=== PATIENT | female | born 1940 | race Caucasian/White ===

== ENCOUNTER 2016-03-28 11:59 | Inpatient (IN) | payer MEDICARE, OTHER ==
[2016-03-28] MEDS ORDERED: ASPIRIN 81 MG TABLET, CHEWABLE PO ONE (12:06)
--- NOTE | 2016-03-28 12:10 | ER Document Report ---
ED Medical Screen (RME) - General Chief Complaint: Chest Pain > 30 Stated Complaint: CHEST PAIN,HEADACHE Time seen by provider: 12:08 Mode of Arrival: Ambulatory Notes: 75-year-old female presents to ED for chest pain going through to her back with palpitations. Started yesterday. States the pain is a little better but still achy left side of her chest through to her back. She states she does have chronic back pain but this was different with her heart feeling like it's racing. She does have a cardiac history with 4 stents I have greeted and performed a rapid initial assessment of this patient. A comprehensive ED assessment and evaluation of the patient, analysis of test results and completion of medical decision making process will be conducted by an additional ED provider. TRAVEL OUTSIDE OF THE [place] IN LAST 30 DAYS: No - Related Data Allergies/Adverse Reactions: No Known Allergies Allergy (Verified 03/28/16 12:07) Past Medical History - Past Medical History Cardiac Medical History: Reports: Hx Atrial Fibrillation, Hx Coronary Artery Disease, Hx Heart Attack, Hx Hypertension GI Medical History: Reports: Hx Gastroesophageal Reflux Disease Musculoskeltal Medical History: Reports Hx Arthritis Past Surgical History: Reports: Hx Cardiac Catheterization, Hx Coronary Stent - 5 stents and 4 vessels. Last stent was over 12 years ago., Hx Gynecologic Surgery - Ovarian cyst surgery - Immunizations Hx Diphtheria, Pertussis, Tetanus Vaccination: Yes Physical Exam - Vital signs Vitals: Temp Pulse Resp BP Pulse Ox 98.4 F 65 16 131/90 H 98 03/28/16 12:03 03/28/16 12:03 03/28/16 12:03 03/28/16 12:03 03/28/16 12:03 Course - Vital Signs Vital signs: Temp Pulse Resp BP Pulse Ox 98.4 F 65 16 131/90 H 98 03/28/16 12:03 03/28/16 12:03 03/28/16 12:03 03/28/16 12:03 03/28/16 12:03
[2016-03-28 12:30] LABS: PROTHROMBIN TIME 14.8 SEC (11.4-15.4)
[2016-03-28 12:31] LABS: PARTIAL THROMBOPLASTIN TIME 36.1 SEC (23.5-35.8)
[2016-03-28] MEDS ORDERED: DILTIAZEM HCL INJ 25 MG/5 ML VIAL IV ONE (12:34)
[2016-03-28] MEDS ORDERED: DILTIAZEM HCL/D5W 125 ML IV PRN ×2 (12:35→15:09)
[2016-03-28 12:37] LABS: ABSOLUTE EOSINOPHILS # (AUTO) 0.1 10^3/uL (0.0-0.6); ABSOLUTE LYMPHOCYTES (AUTO) 1.9 10^3/uL (0.5-4.7); ABSOLUTE MONOCYTES (AUTO) 0.9 10^3/uL (0.1-1.4); ABSOLUTE NEUT (AUTO) 5.9 10^3/uL (1.7-8.2); BASOPHILS % (AUTO) 0.3 % (0-2); EOSINOPHILS % (AUTO) 1.6 % (0-6); HEMATOCRIT 43.7 % (36.0-47.0); HEMOGLOBIN 14.2 g/dL (12.0-15.5); HGB HCT DIFFERENCE -1.1; LYMPHOCYTES % (AUTO) 21.6 % (13-45); MEAN CORPUSCULAR HEMOGLOBIN 30.8 pg (27.0-33.4); MEAN CORPUSCULAR HGB CONC 32.4 g/dL (32.0-36.0); MEAN CORPUSCULAR VOLUME 95 fl (80-97); MONOCYTES % (AUTO) 10.2 % (3-13); RED CELL DISTRIBUTION WIDTH 12.8 % (11.5-14.0); SEGMENTED NEUTROPHILS % (AUTO) 66.3 % (42-78); WHITE BLOOD COUNT 8.9 10^3/uL (4.0-10.5)
[2016-03-28 12:39] LABS: ALANINE AMINOTRANSFERASE 20 U/L (9-52); ALBUMIN 4.6 g/dL (3.5-5.0); ALKALINE PHOSPHATASE 50 U/L (38-126); ANION GAP 13 (5-19); ASPARTATE AMINO TRANSFERASE 21 U/L (14-36); BILIRUBIN,TOTAL 0.9 mg/dL (0.2-1.3); BLOOD UREA NITROGEN 18 mg/dL (7-20); CALCIUM 10.9 mg/dL (8.4-10.2); CARBON DIOXIDE 27 mmol/L (22-30); CHLORIDE 103 mmol/L (98-107); CREATINE KINASE 56 U/L (30-135); GLUCOSE 103 mg/dL (75-110); MAGNESIUM 1.7 mg/dL (1.6-2.3); POTASSIUM 4.3 mmol/L (3.6-5.0); SODIUM 142.6 mmol/L (137-145); TOTAL PROTEIN 7.8 g/dL (6.3-8.2)
--- NOTE | 2016-03-28 12:40 | ER Document Report ---
ED General - General Chief Complaint: Chest Pain > 30 Stated Complaint: CHEST PAIN,HEADACHE Time seen by provider: 12:37 Mode of Arrival: Ambulatory Information source: Patient Notes: 75-year-old female reports a sensation after eating breakfast of rapid irregular heartbeat typical 40s had the past with atrial fibrillation. She reports intermittent aching discomfort in chest for the past 2 days but denies any specific shortness of breath diaphoresis nausea or vomiting. She has no chest pain now. She reports taking eloquent for this and is followed by Dr. Lewis cardiology. He reports she has been cardioverted in the past and thinks she is ordinarily in sinus rhythm. He denies any recent hematemesis, hematochezia, melena, or pain numbness weakness to extremities. Denies abdominal pain. Denies back pain. Physical Exam: General: Alert, appears well. HEENT: Normocephalic. Atraumatic. PERRLA. Extraocular movements intact. Oropharynx clear. Neck: Supple. Non-tender. Respiratory: No respiratory distress. Clear and equal breath sounds bilaterally. Cardiovascular: Tachycardic and irregular PMI not displaced Abdominal: Normal Inspection. Soft, non-tender. No distension. Normal Bowel Sounds. Back: Non-tender. No deformity or step off. Extremities: Moves all four extremities. All extremities warm with 2+ pulses of cyanosis no edema no Homans sign. Neurological: Cranial nerves III-XII grossly intact bilaterally. Strength 5/5 throughout. Sensation intact to light touch. Normal cognition. AAOx4. Normal speech. Psychological: Normal affect. Normal Mood. Skin: Warm. Dry. Normal color. TRAVEL OUTSIDE OF THE [place] IN LAST 30 DAYS: No - Related Data Allergies/Adverse Reactions: No Known Allergies Allergy (Verified 03/28/16 12:07) Past Medical History - Social History Smoking Status: Never Smoker Chew tobacco use (# tins/day): No Frequency of alcohol use: None Drug Abuse: None Family History: CAD, CVA, Hyperlipidemia, Hypertension Patient has suicidal ideation: No Patient has homicidal ideation: No - Past Medical History Cardiac Medical History: Reports: Hx Atrial Fibrillation, Hx Coronary Artery Disease, Hx Heart Attack, Hx Hypertension Renal/ Medical History: Denies: Hx Peritoneal Dialysis GI Medical History: Reports: Hx Gastroesophageal Reflux Disease Musculoskeltal Medical History: Reports Hx Arthritis Past Surgical History: Reports: Hx Cardiac Catheterization, Hx Coronary Stent - 5 stents and 4 vessels. Last stent was over 12 years ago., Hx Gynecologic Surgery - Ovarian cyst surgery - Immunizations Hx Diphtheria, Pertussis, Tetanus Vaccination: Yes Hx Pneumococcal Vaccination: 03/10/09 Review of Systems - Review of Systems Constitutional: denies: Chills, Fever EENT: denies: Ear pain, Throat pain Cardiovascular: See HPI Respiratory: See HPI Gastrointestinal: See HPI Genitourinary: Hematuria. denies: Burning Musculoskeletal: denies: Back pain, Muscle pain Hematologic/Lymphatic: denies: Swollen glands Neurological/Psychological: denies: Weakness, Numbness Physical Exam - Vital signs Vitals: Temp Pulse Resp BP Pulse Ox 98.4 F 65 16 131/90 H 98 03/28/16 12:03 03/28/16 12:03 03/28/16 12:03 03/28/16 12:03 03/28/16 12:03 Course - Re-evaluation Re-evalutation: 03/28/16 13:28 Reevaluation after IV Cardizem bolus and drip shows her heart rate now to be in the 80 range with a blood pressure 122 systolic. Patient has no further sensation of a rapid heartbeat. Magnesium is low and the normal limit will be supplemented. A portable primary care physician is Dr. Nnamdi moses and her it training specialist is Dr. Lewis. I discussed case with Dr. Kay hospitalist service she requests IMCU admission. Patient also has reported some hematuria and urinalysis result is currently pending 03/28/16 13:30 Total critical care time excluding billable procedures 34 minutes - Vital Signs Vital signs: Temp Pulse Resp BP Pulse Ox 98.4 F 65 16 131/90 H 98 03/28/16 12:03 03/28/16 12:03 03/28/16 12:03 03/28/16 12:03 03/28/16 12:03 - Laboratory Result Diagrams: 03/28/16 12:15 03/28/16 12:15 Laboratory results interpreted by me: 03/28/16 03/28/16 12:15 12:15 APTT 36.1 H Calcium 10.9 H - Diagnostic Test Radiology reviewed: Image reviewed, Reports reviewed - EKG Interpretation by Me Additional EKG results interpreted by me: 03/28/16 12:39 EKG reviewed by myself shows atrial fibrillation ventricular rate [address] changes. On library monitor patient's heart rate varies from 120 and 180 Discharge - Discharge Clinical Impression: Atrial fibrillation with rapid ventricular response Condition: Fair Disposition: ADMITTED INPATIENT Admitting Provider: Hospitalist Unit Admitted: [facility]
[2016-03-28 12:51] LABS: CREATINE KINASE MB 0.64 ng/mL (<4.55)
[2016-03-28 12:52] LABS: TROPONIN I < 0.012 ng/mL
[2016-03-28] MEDS: MAGNESIUM SULFATE/D5W 100 ML IV SCH ×2 (14:18→15:30)
[2016-03-28] MEDS ORDERED: ONDANSETRON HCL INJ/PF 4 MG/2 ML SDV IV PRN (14:23)
[2016-03-28] MEDS ORDERED: PROMETHAZINE HCL 25 MG SUPP.RECT PR PRN (14:23)
[2016-03-28 14:32] LABS: APPEARANCE,URINE CLEAR; BILIRUBIN,URINE NEGATIVE (NEGATIVE); GLUCOSE, URINE NEGATIVE (NEGATIVE); KETONES,URINE NEGATIVE (NEGATIVE); LEUKOCYTE ESTERASE,URINE NEGATIVE (NEGATIVE); NITRITE,URINE NEGATIVE (NEGATIVE); PROTEIN,URINE NEGATIVE (NEGATIVE); URINE SPECIFIC GRAVITY 1.004; UROBILINOGEN,URINE NEGATIVE mg/dL (<2.0)
--- NOTE | 2016-03-28 15:27 | PDOC H&P ---
History of Present Illness Admission Date/PCP: 03/28/16 14:05 History of Present Illness: ANA TREJO is a 75 year old female with past medical history significant for CAD 5 stents, A. fib status post cardioversion, TIA/CVA, hypertension/orthostatic hypotension who presents to the emergency department with complaints of palpitations. Patient reports that she woke up from sleep with palpitations and noted that she had a headache and went to get some Tylenol. Patient reports then that she took her blood pressure is currently 140 /108. She reports some nausea and fatigue, but no chest pain or shortness of breath. She does note that she has some dyspnea on exertion but none more than normal. She denies any edema, numbness, tingling, or any TIA symptoms. Patient is referred to hospital service for A. fib with RVR. Patient's current medication list is not available and is currently undergoing reconciliation. The current list is automatically generated by [employer] and does not reflect an accurate patient medication list. Past Medical History Cardiac Medical History: Reports: Atrial Fibrillation, Coronary Artery Disease, Myocardial Infarction, Hypertension GI Medical History: Reports: Gastroesophageal Reflux Disease Musculoskeltal Medical History: Reports: Arthritis Past Surgical History Past Surgical History: Reports: Cardiac Catheterization, Coronary Stent - 5 stents and 4 vessels. Last stent was over 12 years ago., Hysterectomy Social History Smoking Status: Never Smoker Frequency of Alcohol Use: None Hx Recreational Drug Use: No Hx Prescription Drug Abuse: No - Advance Directive Resuscitation Status: Do Not Resuscitate Surrogate healthcare decision maker:: Brenda Mcfarland, daughter Family History Family History: CAD, CVA, Hyperlipidemia, Hypertension, Malignancy Parental Family History Reviewed: Yes Children Family History Reviewed: Yes Sibling(s) Family History Reviewed.: Yes Medication/Allergy Home Medications: Aspirin 81 mg PO DAILY 12/01/14 Lansoprazole [Prevacid] 30 mg PO DAILY 12/01/14 Meclizine HCl 25 mg PO Q6 PRN 12/01/14 Ranitidine HCl 300 mg PO DAILY 12/01/14 Apixaban [Eliquis 2.5 mg Tablet] 2.5 mg PO Q12 #60 tablet 12/05/14 Metoprolol Succinate [Toprol XL 100 mg Tablet] 100 mg PO BID #60 tab.sr.24h Docusate Sodium [Colace 100 mg Capsule] 100 mg PO QHS 02/14/15 Latanoprost [Xalatan 0.005% Oph Soln 2.5 ml] 1 drop OU QHS #0 bottle 02/18/15 Levetiracetam [Keppra 500 mg Tablet] 500 mg PO Q12 #0 tablet 02/18/15 Simvastatin [Zocor 10 mg Tablet] 10 mg PO QHS #0 tablet 02/18/15 Tramadol HCl [Ultram 50 mg Tablet] 100 mg PO QHS #0 tablet 02/18/15 Omeprazole 40 mg PO DAILY 03/04/15 Metoprolol Tartrate [Lopressor 25 mg Tablet] 25 mg PO Q12 #60 tablet 03/08/15 Ciprofloxacin HCl [Cipro 500 mg Tablet] 500 mg PO BID #20 tablet 03/15/15 Apixaban [Eliquis 5 mg Tablet] 5 mg PO BID 03/17/15 Buprenorphine [Butrans] 1 each TD PRN PRN 03/17/15 Lisinopril [Prinivil 10 mg Tablet] 80 mg PO DAILY 03/17/15 Allergies/Adverse Reactions: No Known Allergies Allergy (Verified 03/28/16 12:07) Review of Systems Constitutional: PRESENT: fatigue. ABSENT: chills, fever(s), headache(s), weight gain, weight loss Eyes: ABSENT: visual disturbances Ears: ABSENT: hearing changes Nose, Mouth, and Throat: PRESENT: headache(s) Cardiovascular: PRESENT: dyspnea on exertion, palpitations. ABSENT: chest pain , edema, orthropnea Respiratory: ABSENT: cough, dyspnea, hemoptysis, sputum Gastrointestinal: PRESENT: nausea. ABSENT: abdominal pain, constipation, diarrhea, hematemesis, hematochezia, melena, vomiting Genitourinary: ABSENT: dysuria, hematuria Musculoskeletal: ABSENT: joint swelling Integumentary: ABSENT: rash, wounds Neurological: PRESENT: weakness. ABSENT: abnormal gait, abnormal speech, confusion, dizziness, focal weakness, syncope Psychiatric: ABSENT: anxiety, depression, homidical ideation, suicidal ideation Endocrine: ABSENT: cold intolerance, heat intolerance, polydipsia, polyuria Hematologic/Lymphatic: ABSENT: easy bleeding, easy bruising Physical Exam Vital Signs: Temp Pulse Resp BP Pulse Ox 98.4 F 65 20 121/68 98 03/28/16 12:03 03/28/16 12:03 03/28/16 14:16 03/28/16 14:16 03/28/16 14:16 General appearance: PRESENT: no acute distress, well-developed, well-nourished Head exam: PRESENT: atraumatic, normocephalic Eye exam: PRESENT: conjunctiva pink, EOMI. ABSENT: conjunctival injection, PERRLA - Anisocoria, chronic, scleral icterus Ear exam: PRESENT: normal external ear exam Mouth exam: PRESENT: dry mucosa, tongue midline Neck exam: ABSENT: carotid bruit, JVD, lymphadenopathy, thyromegaly Respiratory exam: PRESENT: clear to auscultation gume, unlabored. ABSENT: rales , rhonchi, tachypnea, wheezes Cardiovascular exam: PRESENT: irregular rhythm, +S1, +S2, systolic murmur - Left lower sternal border. ABSENT: diastolic murmur, rubs Pulses: PRESENT: normal dorsalis pedis pul Vascular exam: PRESENT: normal capillary refill GI/Abdominal exam: PRESENT: normal bowel sounds, soft. ABSENT: distended, firm , guarding, mass, organolmegaly, rebound, rigid, tenderness Rectal exam: PRESENT: deferred Extremities exam: PRESENT: full ROM. ABSENT: calf tenderness, clubbing, pedal edema Neurological exam: PRESENT: alert, awake, oriented to person, oriented to place , oriented to time, oriented to situation, CN II-XII grossly intact. ABSENT: motor sensory deficit Psychiatric exam: PRESENT: appropriate affect, normal mood. ABSENT: homicidal ideation, suicidal ideation Skin exam: PRESENT: dry, intact, warm. ABSENT: cyanosis, rash Results Impressions: Chest X-Ray 03/28/16 12:34 IMPRESSION: Nothing acute. Assessment & Plan - Diagnosis (1) Atrial fibrillation with RVR Is this a current diagnosis for this admission?: YesPlan: We'll continue patient on Cardizem drip. Patient currently her heart rate went from 180 to 60s with a bolus and continuous drip. She will be placed on IMCU and monitored for acute coronary syndrome. Will check patient's UA she does have a history of UTIs and this could be associated with infection. She denies any antecedent illnesses. Patient is currently fully anticoagulated on Eliquis. Have consulted Dr. ALMAZAN her nutritional health coach. (2) Coronary artery disease Qualifiers: Coronary Disease-Associated Artery/Lesion type: [place] artery [place] vs. transplanted heart: [place] heart Associated angina: without angina Qualified Code(s): I25.10 - Atherosclerotic heart disease of [place] coronary artery without angina pectoris Is this a current diagnosis for this admission?: YesPlan: Will monitor for acute coronary syndrome. (3) Dyslipidemia Is this a current diagnosis for this admission?: YesPlan: Continue statin - Time Time Spent: 50 to 70 Minutes Medications reviewed and adjusted accordingly: No - undergoing reconciliation Anticipated discharge: Home Within: within 48 hours - Inpatient Certification Based on my medical assessment, after consideration of the patient's comorbidities, presenting symptoms, or acuity I expect that the services needed warrant INPATIENT care.: Yes I certify that my determination is in accordance with my understanding of Medicare's requirements for reasonable and necessary INPATIENT services [42 CFR 412.3e].: Yes Medical Necessity: Need For Continuous Telemetry Monitoring Post Hospital Care: 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
[2016-03-28] MEDS ORDERED: TRAMADOL HCL 50 MG TABLET PO PRN (15:30)
[2016-03-28] MEDS ORDERED: (PENDING PHARMACY ID) (Buprenorphine [Butrans] 1 EACH) TD PRN (15:30)
[2016-03-28] MEDS: NORMAL SALINE 1000 ML 1,000 ML IV PRN (17:09)
[2016-03-28] MEDS: DOCUSATE SODIUM 100 MG CAPSULE PO SCH (17:10)
[2016-03-28] MEDS: LANSOPRAZOLE 15 MG TAB.RAP.DR PO SCH (17:10)
[2016-03-28] MEDS ORDERED: INFLUENZA ADLT QUAD (36MOS+) 2016-17 VAC 0.5 ML SYR IM PRN (17:36)
[2016-03-28] MEDS ORDERED: (PENDING PHARMACY ID) (Diazepam [Valium] 5 MG) PO PRN (18:19)
[2016-03-28] MEDS: APIXABAN 5 MG TABLET PO SCH (18:44)
--- NOTE | 2016-03-28 19:03 | EKG REPORT ---
SEVERITY:- ABNORMAL ECG - ATRIAL FIBRILLATION, V-RATE 89-174 REPOL ABNRM SUGGESTS ISCHEMIA, LATERAL LEADS : Confirmed by: Gian Staples MD 28-Mar-2016 19:02:26
[2016-03-28 19:09] LABS: CREATINE KINASE MB 0.7 ng/mL (<4.55); TROPONIN I 0.013 ng/mL
[2016-03-28] MEDS ORDERED: DIAZEPAM 5 MG TABLET PO PRN (19:29)
[2016-03-28] MEDS: LATANOPROST 0.005% OPH SOLN 2.5 ML OU SCH (22:31)
[2016-03-28] MEDS: CALCIUM CARBONATE 250 MG/VITAMIN D3 125 UNIT TABLET PO SCH (22:32)
[2016-03-28] MEDS: SIMVASTATIN 10 MG TABLET PO SCH (22:33)
[2016-03-28] MEDS: LISINOPRIL 10 MG TABLET PO SCH (22:35)
[2016-03-28] MEDS: LEVETIRACETAM 500 MG TABLET PO SCH (22:35)
[2016-03-28] MEDS: ACETAMINOPHEN 325 MG TABLET PO PRN (22:38)
[2016-03-28] MEDS: SOTALOL HCL 80 MG TABLET PO SCH (23:37)
[2016-03-29 00:42] LABS: CREATINE KINASE MB 0.71 ng/mL (<4.55)
[2016-03-29 00:43] LABS: TROPONIN I < 0.012 ng/mL
[2016-03-29] MEDS: ACETAMINOPHEN 325 MG TABLET PO PRN (03:02)
[2016-03-29] MEDS: LANSOPRAZOLE 15 MG TAB.RAP.DR PO SCH (06:09)
[2016-03-29 07:08] LABS: ABSOLUTE EOSINOPHILS # (AUTO) 0.1 10^3/uL (0.0-0.6); ABSOLUTE LYMPHOCYTES (AUTO) 1.5 10^3/uL (0.5-4.7); ABSOLUTE MONOCYTES (AUTO) 0.8 10^3/uL (0.1-1.4); ABSOLUTE NEUT (AUTO) 4.2 10^3/uL (1.7-8.2); BASOPHILS % (AUTO) 0.4 % (0-2); EOSINOPHILS % (AUTO) 1.6 % (0-6); HEMOGLOBIN 12.6 g/dL (12.0-15.5); HGB HCT DIFFERENCE -0.2; LYMPHOCYTES % (AUTO) 22.5 % (13-45); MEAN CORPUSCULAR HEMOGLOBIN 31.4 pg (27.0-33.4); MEAN CORPUSCULAR HGB CONC 33.1 g/dL (32.0-36.0); MEAN CORPUSCULAR VOLUME 95 fl (80-97); RED CELL DISTRIBUTION WIDTH 13.1 % (11.5-14.0); SEGMENTED NEUTROPHILS % (AUTO) 63.5 % (42-78); WHITE BLOOD COUNT 6.7 10^3/uL (4.0-10.5)
[2016-03-29 07:32] LABS: ANION GAP 10 (5-19); BLOOD UREA NITROGEN 17 mg/dL (7-20); CALCIUM 9.3 mg/dL (8.4-10.2); CARBON DIOXIDE 25 mmol/L (22-30); CHLORIDE 108 mmol/L (98-107); CREATINE KINASE 48 U/L (30-135); CREATININE RESULT 0.82 mg/dL (0.52-1.25); GLUCOSE 103 mg/dL (75-110); MAGNESIUM 1.8 mg/dL (1.6-2.3); POTASSIUM 3.8 mmol/L (3.6-5.0); SODIUM 142.7 mmol/L (137-145)
[2016-03-29 07:40] LABS: CREATINE KINASE MB 0.69 ng/mL (<4.55)
[2016-03-29 07:41] LABS: TROPONIN I < 0.012 ng/mL
[2016-03-29] MEDS: LISINOPRIL 10 MG TABLET PO SCH ×2 (09:13→23:34)
[2016-03-29] MEDS: FAMOTIDINE 20 MG TABLET PO SCH (09:14)
[2016-03-29] MEDS: SOTALOL HCL 80 MG TABLET PO SCH ×2 (09:14→23:30)
[2016-03-29] MEDS: DOCUSATE SODIUM 100 MG CAPSULE PO SCH ×2 (09:14→17:15)
[2016-03-29] MEDS: CALCIUM CARBONATE 250 MG/VITAMIN D3 125 UNIT TABLET PO SCH ×2 (09:15→23:29)
[2016-03-29] MEDS: SPIRONOLACTONE 25 MG TABLET PO SCH (09:15)
[2016-03-29] MEDS: ASPIRIN 81 MG TABLET, CHEWABLE PO SCH (09:16)
[2016-03-29] MEDS: APIXABAN 5 MG TABLET PO SCH ×2 (09:16→17:15)
[2016-03-29] MEDS: LEVETIRACETAM 500 MG TABLET PO SCH (09:20)
[2016-03-29] MEDS ORDERED: VITAMIN D3 PO SCH (10:00)
[2016-03-29] MEDS ORDERED: (PENDING PHARMACY ID) (Ranitidine Hcl [Ranitidine Hcl] 300 MG) PO SCH (10:00)
[2016-03-29] MEDS ORDERED: (PENDING PHARMACY ID) (Ubidecarenone [Coq-10] 100 MG) PO SCH (10:00)
[2016-03-29] MEDS ORDERED: LANSOPRAZOLE 30 MG TAB.RAP.DR PO SCH (10:00)
[2016-03-29] MEDS ORDERED: [UNRECOGNIZED DRUG - OTHER] PO SCH (10:00)
[2016-03-29] MEDS ORDERED: CALCIUM CARBONATE PO SCH (10:00)
[2016-03-29] MEDS ORDERED: EAC PO SCH (10:00)
[2016-03-29] MEDS ORDERED: METOPROLOL SUCCINATE 25 MG TAB.SR.24H PO ONE (10:45)
[2016-03-29] MEDS: LANSOPRAZOLE 30 MG TAB.RAP.DR PO SCH (12:52)
--- NOTE | 2016-03-29 17:42 | PDOC PROGRESS REPORT ---
Subjective Progress Note for:: 03/29/16 Subjective:: Patient complains of her normal generalized pain. Patient denies chest pain, shortness of breath, abdominal pain, nausea, vomiting , fevers, chills, diarrhea, constipation, headache, new onset weakness. Physical Exam Vital Signs: Temp Pulse Resp BP Pulse Ox 97.3 F 74 20 105/68 97 03/29/16 04:16 03/29/16 06:00 03/29/16 04:16 03/29/16 06:00 03/29/16 05:32 Intake & Output 03/28/16 03/29/16 03/30/16 06:59 06:59 06:59 Intake Total 1475 Output Total 400 Balance 1075 Weight 67.6 kg Exam: General: Awake alert and orientedx3, no acute respiratory distress HEENT: AT/NC, PERRL, EOMI, oropharynx is moist, pink, no scleral icterus, no conjunctival injection Neck: No JVD, trachea midline Chest: Clear to auscultation bilaterally, no wheezes rhonchi or rales CV: Irregular rate and rhythm Abdomen: Soft, nontender to palpation, nondistended, active bowel sounds; no rebound, rigidity, or guarding Extremities: No cyanosis, clubbing or edema Neuro: Cranial nerves II through XII are grossly intact without focal deficits; awake alert and oriented x3 Psych: Flat affect Skin: No rashes or lesions Results Laboratory Results: 03/29/16 06:48 03/29/16 06:48 03/29/16 03/29/16 06:48 06:48 WBC 6.7 RBC 4.00 Hgb 12.6 Hct 38.0 MCV 95 MCH 31.4 MCHC 33.1 RDW 13.1 Plt Count 188 Seg Neutrophils % 63.5 Lymphocytes % 22.5 Monocytes % 12.0 Eosinophils % 1.6 Basophils % 0.4 Absolute Neutrophils 4.2 Absolute Lymphocytes 1.5 Absolute Monocytes 0.8 Absolute Eosinophils 0.1 Absolute Basophils 0.0 Sodium 142.7 Potassium 3.8 Chloride 108 H Carbon Dioxide 25 Anion Gap 10 BUN 17 Creatinine 0.82 Est GFR ( Amer) > 60 Est GFR (Non-Af Amer) > 60 Glucose 103 Calcium 9.3 Magnesium 1.8 03/28/16 03/28/16 03/29/16 18:15 18:15 00:05 Creatine Kinase 53 52 CK-MB (CK-2) 0.70 Troponin I 0.013 03/29/16 03/29/16 00:05 06:48 Creatine Kinase 48 CK-MB (CK-2) 0.71 Troponin I < 0.012 Impressions: Chest X-Ray 03/28/16 12:34 IMPRESSION: Nothing acute. Assessment & Plan - Diagnosis (1) Atrial fibrillation with RVR Is this a current diagnosis for this admission?: YesPlan: We'll continue patient on Cardizem drip. Pending recommendations from Dr. 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 (2) Coronary artery disease Qualifiers: Coronary Disease-Associated Artery/Lesion type: [place] artery [place] vs. transplanted heart: [place] heart Associated angina: without angina Qualified Code(s): I25.10 - Atherosclerotic heart disease of [place] coronary artery without angina pectoris Is this a current diagnosis for this admission?: YesPlan: Ruled out for ACS (3) Dyslipidemia Is this a current diagnosis for this admission?: YesPlan: Continue statin (4) Chronic pain Qualifiers: Chronic pain type: chronic pain syndrome Qualified Code(s): G89.4 - Chronic pain syndrome Is this a current diagnosis for this admission?: YesPlan: Place patient on tramadol - Time Time Spent with patient: 25-34 minutes Medications reviewed and adjusted accordingly: Yes Anticipated discharge: Home Within: within 24 hours
[2016-03-29] MEDS: NORMAL SALINE 1000 ML 1,000 ML IV PRN (17:54)
--- NOTE | 2016-03-29 20:56 | EKG REPORT ---
SEVERITY:- ABNORMAL ECG - ATRIAL FIBRILLATION, V-RATE 57-113 : Confirmed by: Gian Staples MD 29-Mar-2016 20:55:19
[2016-03-29] MEDS: LATANOPROST 0.005% OPH SOLN 2.5 ML OU SCH (23:29)
[2016-03-29] MEDS: SIMVASTATIN 10 MG TABLET PO SCH (23:30)
[2016-03-29] MEDS: METOPROLOL SUCCINATE 25 MG TAB.SR.24H PO SCH (23:33)
[2016-03-30] MEDS: LEVETIRACETAM 500 MG TABLET PO SCH ×3 (02:31→21:05)
[2016-03-30] MEDS: NORMAL SALINE 1000 ML 1,000 ML IV PRN (05:48)
[2016-03-30 06:09] LABS: ABSOLUTE EOSINOPHILS # (AUTO) 0.1 10^3/uL (0.0-0.6); ABSOLUTE LYMPHOCYTES (AUTO) 2.2 10^3/uL (0.5-4.7); ABSOLUTE MONOCYTES (AUTO) 0.9 10^3/uL (0.1-1.4); ABSOLUTE NEUT (AUTO) 4.9 10^3/uL (1.7-8.2); BASOPHILS % (AUTO) 0.5 % (0-2); EOSINOPHILS % (AUTO) 1.7 % (0-6); HEMATOCRIT 38.3 % (36.0-47.0); HEMOGLOBIN 12.4 g/dL (12.0-15.5); HGB HCT DIFFERENCE -1.1; LYMPHOCYTES % (AUTO) 26.5 % (13-45); MEAN CORPUSCULAR HEMOGLOBIN 30.8 pg (27.0-33.4); MEAN CORPUSCULAR HGB CONC 32.4 g/dL (32.0-36.0); MEAN CORPUSCULAR VOLUME 95 fl (80-97); MONOCYTES % (AUTO) 10.8 % (3-13); RED BLOOD COUNT 4.03 10^6/uL (3.72-5.28); RED CELL DISTRIBUTION WIDTH 13.1 % (11.5-14.0); SEGMENTED NEUTROPHILS % (AUTO) 60.5 % (42-78); WHITE BLOOD COUNT 8.1 10^3/uL (4.0-10.5)
[2016-03-30 06:23] LABS: ANION GAP 10 (5-19); BLOOD UREA NITROGEN 15 mg/dL (7-20); CALCIUM 9.3 mg/dL (8.4-10.2); CARBON DIOXIDE 24 mmol/L (22-30); CHLORIDE 109 mmol/L (98-107); GLUCOSE 98 mg/dL (75-110); POTASSIUM 4.3 mmol/L (3.6-5.0); SODIUM 143.1 mmol/L (137-145)
[2016-03-30] MEDS: ACETAMINOPHEN 325 MG TABLET PO PRN ×2 (06:59→20:49)
[2016-03-30] MEDS: DOCUSATE SODIUM 100 MG CAPSULE PO SCH ×2 (09:57→17:56)
[2016-03-30] MEDS: CALCIUM CARBONATE 250 MG/VITAMIN D3 125 UNIT TABLET PO SCH ×2 (09:57→21:05)
[2016-03-30] MEDS: ASPIRIN 81 MG TABLET, CHEWABLE PO SCH (09:58)
[2016-03-30] MEDS: APIXABAN 5 MG TABLET PO SCH ×2 (09:58→17:55)
[2016-03-30] MEDS: METOPROLOL SUCCINATE 25 MG TAB.SR.24H PO SCH (09:58)
[2016-03-30] MEDS: LISINOPRIL 10 MG TABLET PO SCH ×2 (09:58→21:04)
[2016-03-30] MEDS: SPIRONOLACTONE 25 MG TABLET PO SCH (09:58)
[2016-03-30] MEDS: SOTALOL HCL 80 MG TABLET PO SCH (09:59)
[2016-03-30] MEDS: LANSOPRAZOLE 30 MG TAB.RAP.DR PO SCH (09:59)
[2016-03-30] MEDS: FAMOTIDINE 20 MG TABLET PO SCH (10:00)
--- NOTE | 2016-03-30 11:04 | EKG REPORT ---
SEVERITY:- ABNORMAL ECG - ATRIAL FIBRILLATION CONSIDER ANTEROSEPTAL INFARCT : Confirmed by: Gian Staples MD 30-Mar-2016 11:03:08
[2016-03-30] MEDS ORDERED: SOTALOL HCL 80 MG TABLET PO ONE ×2 (11:41→12:15)
--- NOTE | 2016-03-30 14:16 | PDOC PROGRESS REPORT ---
Subjective Progress Note for:: 03/30/16 Subjective:: Patient complains of her normal generalized pain. Patient denies chest pain, shortness of breath, abdominal pain, nausea, vomiting , fevers, chills, diarrhea, constipation, headache, new onset weakness. Physical Exam Vital Signs: Temp Pulse Resp BP Pulse Ox 98.2 F 87 20 140/65 H 94 03/29/16 20:00 03/30/16 06:00 03/29/16 20:00 03/30/16 06:00 03/30/16 04:01 Intake & Output 03/29/16 03/30/16 03/31/16 06:59 06:59 06:59 Intake Total 1475 2578 Output Total 400 2275 Balance 1075 303 Weight 67.6 kg 71.6 kg Exam: General: Awake alert and orientedx3, no acute respiratory distress HEENT: AT/NC, PERRL, EOMI, oropharynx is moist, pink, no scleral icterus, no conjunctival injection Neck: No JVD, trachea midline Chest: Clear to auscultation bilaterally, no wheezes rhonchi or rales CV: Irregular rate and rhythm Abdomen: Soft, nontender to palpation, nondistended, active bowel sounds; no rebound, rigidity, or guarding Extremities: No cyanosis, clubbing or edema Neuro: Cranial nerves II through XII are grossly intact without focal deficits; awake alert and oriented x3 Psych: Flat affect Skin: No rashes or lesions Results Laboratory Results: 03/30/16 04:56 03/30/16 04:56 03/30/16 03/30/16 04:56 04:56 WBC 8.1 RBC 4.03 Hgb 12.4 Hct 38.3 MCV 95 MCH 30.8 MCHC 32.4 RDW 13.1 Plt Count 193 Seg Neutrophils % 60.5 Lymphocytes % 26.5 Monocytes % 10.8 Eosinophils % 1.7 Basophils % 0.5 Absolute Neutrophils 4.9 Absolute Lymphocytes 2.2 Absolute Monocytes 0.9 Absolute Eosinophils 0.1 Absolute Basophils 0.0 Sodium 143.1 Potassium 4.3 Chloride 109 H Carbon Dioxide 24 Anion Gap 10 BUN 15 Creatinine 0.80 Est GFR ( Amer) > 60 Est GFR (Non-Af Amer) > 60 Glucose 98 Calcium 9.3 03/28/16 03/28/16 03/29/16 18:15 18:15 00:05 Creatine Kinase 53 52 CK-MB (CK-2) 0.70 Troponin I 0.013 03/29/16 03/29/16 03/29/16 00:05 06:40 06:48 Creatine Kinase 48 CK-MB (CK-2) 0.71 0.69 Troponin I < 0.012 < 0.012 Impressions: Chest X-Ray 03/28/16 12:34 IMPRESSION: Nothing acute. Assessment & Plan - Diagnosis (1) Atrial fibrillation with RVR Is this a current diagnosis for this admission?: YesPlan: Will stop Cardizem. Increase patient's sotalol to 80 mg by mouth twice a day. Hold metoprolol. Appreciate cardiology recommendations. Continue with Eliquis. (2) Coronary artery disease Qualifiers: Coronary Disease-Associated Artery/Lesion type: [place] artery [place] vs. transplanted heart: [place] heart Associated angina: without angina Qualified Code(s): I25.10 - Atherosclerotic heart disease of [place] coronary artery without angina pectoris Is this a current diagnosis for this admission?: YesPlan: Ruled out for ACS (3) Dyslipidemia Is this a current diagnosis for this admission?: Yes (4) Chronic pain Qualifiers: Chronic pain type: chronic pain syndrome Qualified Code(s): G89.4 - Chronic pain syndrome Is this a current diagnosis for this admission?: YesPlan: Place patient on tramadol - Time Time Spent with patient: 25-34 minutes Medications reviewed and adjusted accordingly: Yes Anticipated discharge: Home Within: within 24 hours
--- NOTE | 2016-03-30 14:44 | CONSULTATION REPORT E ---
Consultation Report NAME: ANA TREJO : 1940 AGE: 75Y DATE: 03/29/2016 324 A TO: ESPINOZA GAVIRIA M.D. FROM: SAAD HANDY M.D. Requesting Physician REASON FOR CONSULTATION: Recurrence of atrial fibrillation with rapid ventricular response. HISTORY OF PRESENT ILLNESS: The patient is a 75-year-old female, who is a known patient of mine for a longtime, who called me on the morning of 03/28/2016 stating that after she woke up, her heart rate was irregular and blood pressure was slightly elevated. She she states her palpitations continued continued and it started increasing. She was also short of breath with mild exertion, but is not able to say if this was worse than her baseline. She has had shortness of breath with exertion for sometime. I asked her to go to my office and have an EKG done and she said she would do at 12 noon, but since the heart rate became faster and she felt that and she was more short of breath, she came to emergency room. There was no chest pain or discomfort. There was no PND, orthopnea, or leg edema. There are no TIA or CVA symptoms. There is no bleeding on Eliquis. There is no syncope, dizziness, or headaches. Note that the patient is on Eliquis, metipranolol, and sotalol. Past Medical History: She has a history of coronary artery disease, was told that she had a TN in the remote past. She has had 5 cardiac stents placed. She has a history of hypertension. She also has a history of hyperlipidemia. She has a history of a left sciatica, and chronic back pain. She is very sedentary due to this. She has no history of diabetes mellitus, no history of thyroid disease. She has no history of asthma or COPD. She has no history of pulmonary embolism. She has no hemoptysis. She has no history of sleep apnea. She has no history of chronic kidney disease. She has had several TIAs in the past, but none recently. She has a history of proximal greater fibrillation and has been cardioverted once in the past to a regular sinus rhythm. She has a history of hyperlipidemia. Past Surgical History: She has had cardiac catheterization and stent placement, cyst removal, eye surgery, and awaiting surgery. Family History: There is a family history of coronary artery disease and TN. Social history: She has never smoked, and no history of alcohol or street drug abuse. Disposition: She is a DO NOT RESUSCITATE. Her is his surrogate healthcare decision-maker for the patient. Allergies: Codeine. Medication as per MAR. This has been reviewed, as also the office records of her medications. Review Of Symptoms: Constitutional: Denies any fever chills or RI rigors, but states there is increased fatigue in a setting of chronic fatigue syndrome. Head: No headaches or head injury. Eyes: No amaurosis fugax, no visual disturbances, no amblyopia. Ears: No earaches, no tinnitus, no hearing loss. Nose: No hay fever, no nosebleeds, and no nasal polyps. Mouth: No altered taste sensation, no bleeding from the gums, and no ulcers in the mouth. Throat: No odynophagia or dysphagia, and no recurrent sore throats. Skin: No elevation discoloration of the skin, no pruritus, no psoriatic assess, and no skin cancer. Lungs: No wheezing, no cough, no pleuritic chest pain, no hemoptysis. Does have exertional shortness of breath especially when she is in atrial fibrillation along with increased fatigue, and decreased effort tolerance.Cardiac. History of hypertension present. History of coronary artery disease. Stents had to have an old TN no anginal symptoms for a long time history of multiple stents as mentioned earlier in the coronary arteries, details not clear. No history of congestive heart failure. History of atrial fibrillation paroxysmal with multiple recurrences. This time the patient has recurrent atrial fibrillation in spite of her being on metoprolol tartrate 25 mg by mouth twice a day, and sotalol 40 mg by mouth every 12 hours. History of palpitations present. No syncope no PND orthopnea or leg edema.GI: No GERD symptoms, no fatty food intolerance, no abdominal pain, no GI bleed, no altered bowel movements. Endocrine: No history of diabetes mellitus, and no history of thyroid disease. No polydipsia or polyuria. No heat or cold intolerance. No hirsutism., And no excessive sweating. Musculoskeletal: History of arthritis of the low back with chronic back pain and chronic pain syndrome, and history of left-sided sciatica. No collagenous vascular disease. Renal: No history of chronic kidney disease. No history of symptoms of UTI. No hematuria pyuria or dysuria. 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 No sleep apnea. No history of seizures, headaches or migraines. No history of gait imbalance. Metabolic: History of hyperlipidemia present, but no history of gout. Psychiatric: No history of anxiety or depression, and no suicidal ideation.Vascular no history of calf or buttock claudication, and no history of DVT. Hematology: No history of bleeding diathesis, and no clotting disorders. Physical Examination: On examination the patient is well built and well nourished at present complains of fatigue but not in any acute distress. She is afebrile with a temperature of 97.5 F, pulse of 70 bpm irregularly irregular, on 15 mg per hour of Cardizem drip, blood pressure is 118/69 Respirations are 20 per minute and O2 sats 97% on 1.5 L of oxygen by nasal cannula. Head is atraumatic normocephalic. Eyes: Pupils are equal round regular reactive to light and accommodation, extraocular movements are normal, there is no scleral icterus, and no conjunctival pallor. Ears: Tympanic membranes are intact, external auditory canal is clear. Nose: There is no inflammation of the nasal mucous membranes, and there is no deviated nasal septum. Mouth: Mucous membranes of the mouth are moist, tongue is moist, there is no ulcers or bleeding from the gums. Throat: There is no exudates, and no redness of the oropharynx. Skin: There is no petechia or ecchymosis, and no skin lesions or skin rashes.Neck: Neck is supple, there is no JVD. Carotids are equal without any bruits. There is no lymphadenopathy. No goiter, and trachea central. Lungs: Lungs are clear to auscultation and percussion, without any rhonchi rales or wheezing. Heart: S1 and S2 is heard. S1 is of variable intensity. There is no S3 gallop there is no S4 gallop. There is a systolic murmur left sternal border and apex without significant radiation, and no rub. Abdomen: Is soft. There is no hepatospleno megaly. Bowel sounds are normal. There is no rebound guarding or rigidity. Extremities: Femorals are well felt without any bruits. Leg pulses are well felt. There is no pedal edema. There is no sinus or clubbing. There is no calf tenderness. 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 Psychiatric. The patient appears to be slightly depressed , but has normal judgment and insight. Her affect seems to be slightly flat. Diagnostic Data: Chest x-ray is negative. Her EKG shows atrial fibrillation, and nonspecific IVCD, of the incomplete left bundle branch block pattern . Note her ventricular rate is controlled Her white count is 6700, hemoglobin is 12.6, hematocrit is 38.0, and platelet count is 188,000. On March 28 her PT was 14.8 with an INR of 1.12, and a PTT of 36.1. The patient's sodium is 142.7, potassium is 3.8 chloride is 108, CO2 is 25, the BUN is 17, and a creatinine is 0.82. Her GFR is greater than 60. Her blood sugar is 103 and a calcium is 9.3. Magnesium was normal at 1.8. Her cardiac enzymes including the CPK-MB and troponin I are negative 2. Her TSH was normal at 4.67. Diagnosis: [1]. Atrial Fibrillation with rapid ventricular response, at present went response controlled with IV Cardizem drip. [2]. Coronary Artery Disease. History of stents, and old TN. No anginal symptoms in a long time. [3]. Hypertension, seems to be fairly well controlled. [4]. Hypercholesterolemia. [5]. Left-sided sciatica. [6]. Chronic back pain, and chronic pain syndrome. [7]. Possible depression. Recommendations: We'll continue the IV Cardizem drip, and would do increase the patient's sotalol to 80 mg by mouth every 12 hours. Would stop the IV Cardizem drip if the heart rate is controlled or if patient converts with the increased dose of sotalol. Also would decrease the patient's lisinopril and D and use it at in doses as needed to control the patient's blood pressure. Also would stop the patient's metipranolol, since the sotalol is being increased. Continue Elquis. Would continue to follow the patient with you. Note 45 minutes spent on this patient, with more than 50% of the time spent in direct patient care. The patient medications were reviewed and adjusted. Her office records and old records were reviewed. The case was discussed thoroughly the management plan was reached after discussions with the attending physician. Also the change in treatment plan as also been discussed with the patient patient's . Thanking you for this consult. DICTATING PHYSICIAN: ESPINOZA GAVIRIA M.D. [id number] PHY#: [id number] ID: [id number] JOB#: [id number] ACCT: [id number] cc:ESPINOZA GAVIRIA M.D. > MTDD
[2016-03-30] MEDS: LATANOPROST 0.005% OPH SOLN 2.5 ML OU SCH (21:04)
[2016-03-30] MEDS: SIMVASTATIN 10 MG TABLET PO SCH (21:06)
[2016-03-30] MEDS ORDERED: SOTALOL HCL 80 MG TABLET PO SCH (22:00)
[2016-03-31 06:01] LABS: ABSOLUTE EOSINOPHILS # (AUTO) 0.2 10^3/uL (0.0-0.6); ABSOLUTE LYMPHOCYTES (AUTO) 2.1 10^3/uL (0.5-4.7); ABSOLUTE MONOCYTES (AUTO) 0.8 10^3/uL (0.1-1.4); ABSOLUTE NEUT (AUTO) 4.5 10^3/uL (1.7-8.2); BASOPHILS % (AUTO) 0.3 % (0-2); EOSINOPHILS % (AUTO) 2.5 % (0-6); HEMATOCRIT 39.1 % (36.0-47.0); HGB HCT DIFFERENCE -0.1; LYMPHOCYTES % (AUTO) 27.4 % (13-45); MEAN CORPUSCULAR HEMOGLOBIN 31.2 pg (27.0-33.4); MEAN CORPUSCULAR HGB CONC 33.2 g/dL (32.0-36.0); MEAN CORPUSCULAR VOLUME 94 fl (80-97); MONOCYTES % (AUTO) 10.7 % (3-13); RED BLOOD COUNT 4.15 10^6/uL (3.72-5.28); RED CELL DISTRIBUTION WIDTH 13.1 % (11.5-14.0); SEGMENTED NEUTROPHILS % (AUTO) 59.1 % (42-78); WHITE BLOOD COUNT 7.5 10^3/uL (4.0-10.5)
[2016-03-31 06:36] LABS: ANION GAP 10 (5-19); BLOOD UREA NITROGEN 18 mg/dL (7-20); CALCIUM 10.2 mg/dL (8.4-10.2); CARBON DIOXIDE 24 mmol/L (22-30); CHLORIDE 108 mmol/L (98-107); CREATININE RESULT 0.87 mg/dL (0.52-1.25); GLUCOSE 93 mg/dL (75-110); POTASSIUM 4.1 mmol/L (3.6-5.0); SODIUM 142.1 mmol/L (137-145)
[2016-03-31] MEDS: LANSOPRAZOLE 30 MG TAB.RAP.DR PO SCH (09:48)
[2016-03-31] MEDS: CALCIUM CARBONATE 250 MG/VITAMIN D3 125 UNIT TABLET PO SCH ×2 (09:48→22:11)
[2016-03-31] MEDS: LISINOPRIL 10 MG TABLET PO SCH ×2 (09:49→22:08)
[2016-03-31] MEDS: LEVETIRACETAM 500 MG TABLET PO SCH ×2 (09:49→22:06)
[2016-03-31] MEDS: FAMOTIDINE 20 MG TABLET PO SCH (09:49)
[2016-03-31] MEDS: DOCUSATE SODIUM 100 MG CAPSULE PO SCH ×2 (09:49→17:09)
[2016-03-31] MEDS: APIXABAN 5 MG TABLET PO SCH ×2 (09:49→17:08)
[2016-03-31] MEDS: ASPIRIN 81 MG TABLET, CHEWABLE PO SCH (09:49)
[2016-03-31] MEDS: SPIRONOLACTONE 25 MG TABLET PO SCH (09:49)
--- NOTE | 2016-03-31 10:05 | EKG REPORT ---
SEVERITY:- ABNORMAL ECG - ATRIAL FIBRILLATION INCOMPLETE LEFT BUNDLE BRANCH BLOCK : Confirmed by: Gian Staples MD 31-Mar-2016 10:04:37
[2016-03-31] MEDS ORDERED: SOTALOL HCL 80 MG TABLET PO ONE (11:30)
[2016-03-31 11:58] LABS: APPEARANCE,URINE CLEAR; BILIRUBIN,URINE NEGATIVE (NEGATIVE); GLUCOSE, URINE NEGATIVE (NEGATIVE); KETONES,URINE NEGATIVE (NEGATIVE); LEUKOCYTE ESTERASE,URINE NEGATIVE (NEGATIVE); NITRITE,URINE NEGATIVE (NEGATIVE); PROTEIN,URINE NEGATIVE (NEGATIVE); URINE SPECIFIC GRAVITY 1.004; UROBILINOGEN,URINE NEGATIVE mg/dL (<2.0)
[2016-03-31] MEDS ORDERED: MORPHINE SULFATE 10 MG/ML INJ ONE (12:16)
[2016-03-31] MEDS ORDERED: MIDAZOLAM 2 MG/2 ML INJ ONE (14:38)
[2016-03-31] MEDS ORDERED: PROPOFOL INJ 200 MG/20 ML VIAL IV ONE (14:38)
[2016-03-31] MEDS ORDERED: VERAPAMIL HCL INJ/PF 5 MG/2 ML SDV IV ONE (15:33)
--- NOTE | 2016-03-31 17:30 | PDOC PROGRESS REPORT ---
Subjective Progress Note for:: 03/31/16 Subjective:: Patient went back into [facility] with RVR. Patient admits to slight amount of chest pain. She complains of dysuria. Patient denies shortness of breath, abdominal pain, nausea, vomiting, fevers, chills, diarrhea, constipation, headache, new onset weakness. Physical Exam Vital Signs: Temp Pulse Resp BP Pulse Ox 97.4 F 69 19 114/57 L 95 03/31/16 04:19 03/31/16 07:00 03/31/16 04:19 03/31/16 04:19 03/31/16 04:19 Intake & Output 03/30/16 03/31/16 04/01/16 06:59 06:59 06:59 Intake Total 2578 1618 Output Total 2275 350 Balance 303 1268 Weight 71.6 kg 70.7 kg Exam: General: Awake alert and orientedx3, no acute respiratory distress HEENT: AT/NC, PERRL, oropharynx is moist, pink, no scleral icterus, no conjunctival injection Neck: No JVD, trachea midline Chest: Clear to auscultation bilaterally, no wheezes rhonchi or rales CV: Irregular rate and rhythm Abdomen: Soft, nontender to palpation, nondistended, active bowel sounds; no rebound, rigidity, or guarding Extremities: No cyanosis, clubbing or edema Neuro: Cranial nerves II through XII are grossly intact without focal deficits; awake alert and oriented x3 Psych: Flat affect, dysthymic mood Skin: No rashes or lesions Results Laboratory Results: 03/31/16 05:25 03/31/16 05:25 03/31/16 03/31/16 05:25 05:25 WBC 7.5 RBC 4.15 Hgb 13.0 Hct 39.1 MCV 94 MCH 31.2 MCHC 33.2 RDW 13.1 Plt Count 193 Seg Neutrophils % 59.1 Lymphocytes % 27.4 Monocytes % 10.7 Eosinophils % 2.5 Basophils % 0.3 Absolute Neutrophils 4.5 Absolute Lymphocytes 2.1 Absolute Monocytes 0.8 Absolute Eosinophils 0.2 Absolute Basophils 0.0 Sodium 142.1 Potassium 4.1 Chloride 108 H Carbon Dioxide 24 Anion Gap 10 BUN 18 Creatinine 0.87 Est GFR ( Amer) > 60 Est GFR (Non-Af Amer) > 60 Glucose 93 Calcium 10.2 03/28/16 03/28/16 03/29/16 18:15 18:15 00:05 Creatine Kinase 53 52 CK-MB (CK-2) 0.70 Troponin I 0.013 03/29/16 03/29/16 03/29/16 00:05 06:40 06:48 Creatine Kinase 48 CK-MB (CK-2) 0.71 0.69 Troponin I < 0.012 < 0.012 Impressions: Chest X-Ray 03/28/16 12:34 IMPRESSION: Nothing acute. Assessment & Plan - Diagnosis (1) Atrial fibrillation with RVR Is this a current diagnosis for this admission?: YesPlan: Plan is for cardiology to cardiovert this patient today. Defer to their expertise. Patient is on full dose Eliquis. (2) Coronary artery disease Qualifiers: Coronary Disease-Associated Artery/Lesion type: [place] artery [place] vs. transplanted heart: [place] heart Associated angina: without angina Qualified Code(s): I25.10 - Atherosclerotic heart disease of [place] coronary artery without angina pectoris Is this a current diagnosis for this admission?: YesPlan: Ruled out for ACS (3) Dyslipidemia Is this a current diagnosis for this admission?: YesPlan: Continue statin (4) Chronic pain Qualifiers: Chronic pain type: chronic pain syndrome Qualified Code(s): G89.4 - Chronic pain syndrome Is this a current diagnosis for this admission?: YesPlan: Place patient on tramadol (5) Dysuria Is this a current diagnosis for this admission?: YesPlan: Will send UA - Time Time Spent with patient: 25-34 minutes Medications reviewed and adjusted accordingly: Yes
--- NOTE | 2016-03-31 17:43 | PROGRESS NOTE E ---
Progress Note NAME: ANA TREJO : 1940 AGE: 75Y DATE: 03/31/2016 ROOM: 324 SUBJECTIVE: The patient continues to be in atrial fibrillation, at times with rapid ventricular response. Note that the patient has got an IVCD of the left bundle branch block pattern, and the QTc is 503 milliseconds which is high, hence her sotalol has been held. She denies any PND or orthopnea. There is no chest pain or discomfort. She complains of a generalized fatigue due to loss of her "atrial kick" contribution to cardiac output. She has left-sided sciatica pain, and she has chronic pain all over. She appears to be depressed. OBJECTIVE: GENERAL: On examination, she is well built and well nourished. VITAL SIGNS: She is afebrile with a temperature of 97.6 degrees Fahrenheit. Pulse is 100 beats per minute. Blood pressure 120/80. Respirations are 17 per minute. O2 saturations are 99% on room air. HEAD: Atraumatic/normocephalic. EYES: Pupils are equal, round, regular, reactive to light and accommodation. Extraocular movements are normal. There is no conjunctival pallor. There is no scleral icterus. EARS, NOSE, AND THROAT: Negative. NECK: Supple. There is no JVD. Carotids are equal. There is no bruit. Trachea is central. LUNGS: Clear to auscultation/percussion. HEART: S1, S2 is heard. S1 is of variable intensity. There is no S3 gallop. There is no S4 gallop. There is a systolic murmur in the left sternal border and the apex. There is no rub. ABDOMEN: Soft, nontender. There is no hepatosplenomegaly. Bowel sounds are well heard. There are no tender areas or masses. EXTREMITIES: Femorals are well felt, leg pulses well felt. There is no femoral bruit. There is no DVT or cellulitis. There is no calf tenderness. CENTRAL NERVOUS SYSTEM: The patient is conscious, awake, alert, oriented x2 with no focal deficit. PSYCHIATRIC: The patient appears to be depressed, but her judgement and insight are intact. Her affect is slightly flat. DIAGNOSTIC DATA: The patient's EKG this morning shows atrial fibrillation, IVCD with an incomplete left bundle branch block pattern. The patient's white count is 7,500, hemoglobin is 13, hematocrit is 39.1, platelet count is 193,000. The patient's sodium is 142.1, potassium is 4.1, chloride is 108, CO2 is 24, the patient's BUN is 18, creatinine is 0.87, and her GFR is greater than 60. Her glucose is 93, calcium is 10.2. IMPRESSION: 1. RECENT ATRIAL FIBRILLATION, UNABLE TO INCREASE THE DOSE OF SOTALOL. THE PATIENT STILL SEEMS TO BE IN ATRIAL FIBRILLATION, NOW WITH A PROLONGED QTC INTERVAL. HENCE, WE WILL HOLD THE SOTALOL AND RESTART AFTER THE QTC COMES DOWN. 2. HYPERTENSION. WILL CONTINUE LISINOPRIL 40 MG Q.12 H. 3. INCREASED QTC INTERVAL. HOLD SOTALOL AND RESTART LATER. 4. IVCD WITH AN INCOMPLETE LEFT BUNDLE BRANCH BLOCK PATTERN. 5. CAD, HISTORY OF STENTS; NO ANGINAL SYMPTOMS. 6. HYPERLIPIDEMIA. 7. LEFT-SIDED SCIATICA. 8. CHRONIC PAIN. 9. FATIGUE SECONDARY TO LOSS OF "ATRIAL KICK" CONTRIBUTION TO THE PATIENT'S CARDIAC OUTPUT. PLAN: In view of the patient continuing to be in atrial fibrillation and unable to increase the dose of sotalol, I discussed the option of cardioversion with the patient and patient's and family. The procedure, benefits, risks, and complications such as skin deleon, complete heart block or AV block or ventricular standstill needing CPR or placement of a temporary transvenous pacemaker or permanent pacemaker, as well as CVA have all been discussed with the patient. Note that the patient has been chronically on Eliquis. Also, it has been discussed that the DNR STATUS will be temporarily revoked when the patient is undergoing cardioversion. This has been discussed with the family in detail, all questions answered. Also discussed with Dr. Toussaint, who will give anesthesia. The procedure is set for later this afternoon at around 3:00 p.m. Note, 40 minutes were spent on this patient with more than 50% of the time spent in direct patient care and reviewing the patient's lab results and reviewing the patient's EKG and the patient's medications and adjusting the patient's medications. Discussed with the hospitalist taking care of the patient. Will follow you. See cardioversion note dictated later. DICTATING PHYSICIAN: ESPINOZA GAVIRIA M.D. [id number] PHY#: [id number] ID: [id number] JOB#: [id number] ACCT: [id number] cc:ESPINOZA GAVIRIA M.D. >
--- NOTE | 2016-03-31 18:23 | OPERATIVE REPORT E ---
Operative Report NAME: ANA TREJO : 1940 AGE: 75Y DATE OF SURGERY: 03/31/2016 ROOM: 324 PROCEDURE: Elective cardioversion of atrial fibrillation to sinus rhythm. SURGEON: ESPINOZA GAVIRIA M.D. TISSUE REMOVED OR ALTERED: None. ESTIMATED BLOOD LOSS: None. INDICATION: Persistent atrial fibrillation with an inability to increase the dose of sotalol any further due to increased QTc interval. INFORMED CONSENT: The procedure of cardioversion was discussed with the patient and patient's in detail. The risk of skin burn, stroke, ventricular standstill, ventricular arrhythmias, needing CPR and defibrillation were all discussed in detail, and also the need for temporary or permanent pacemaker was discussed in detail. Since the patient was a DNR, the DNR was rescinded, after discussions with the patient and patient's , for the duration of the procedure, and the patient would become DNR after the procedure is done and the patient is stable for sometime. PROCEDURE: The patient already had defibrillator/cardioversion patch on the front and back of the left chest wall. The patient was given verapamil 2.5 mg IV push prior to the desynchronized cardioversion. Subsequent to that, the patient was taken to the Post-Anesthesia Care Unit. With Anesthesia giving the patient deep sedation and watching the airway, desynchronized 200 Joules of DC biphasic current was delivered to the patient, and the patient was successfully cardioverted on the first attempt to initially ectopic atrial rhythm, then subsequently sinus rhythm. The patient's blood pressure and other hemodynamics were stable. Soon after, the patient woke up from the deep sedation and was without any evidence of CVA, and the patient tolerated the procedure well. The patient was returned back to her room in the IMCU. Post-cardioversion EKG showed sinus rhythm, a normal EKG. IMPRESSION: Successful cardioversion of persistent atrial fibrillation to sinus rhythm with a normal EKG and without any complications with 200 Joules of biphasic DC current/cardioversion. ADDENDUM: About 2 hours later, the patient was again seen in the IMCU, and she was stable with a stable heart rate and blood pressure, but the patient was still bradycardic, hence sotalol was not restarted but will restart later when the patient's heart rate comes above 70. Discussed with the patient and the patient's . Note, the patient's DNR STATUS was reinstated. Discussed with the hospitalist also. DICTATING PHYSICIAN: ESPINOZA GAVIRIA M.D. [id number] PHY#: [id number] ID: [id number] JOB#: [id number] ACCT: [id number] cc:ESPINOZA GAVIRIA M.D. >
--- NOTE | 2016-03-31 20:34 | EKG REPORT ---
SEVERITY:- ABNORMAL ECG - SINUS RHYTHM NONSPECIFIC T ABNORMALITIES, LATERAL LEADS : Confirmed by: Gian Staples MD 31-Mar-2016 20:33:35
[2016-03-31] MEDS: LATANOPROST 0.005% OPH SOLN 2.5 ML OU SCH (22:06)
[2016-03-31] MEDS: SIMVASTATIN 10 MG TABLET PO SCH (22:07)
[2016-04-01] MEDS: SPIRONOLACTONE 25 MG TABLET PO SCH (10:30)
[2016-04-01] MEDS: APIXABAN 5 MG TABLET PO SCH ×2 (10:30→17:58)
[2016-04-01] MEDS: DOCUSATE SODIUM 100 MG CAPSULE PO SCH ×2 (10:30→17:58)
[2016-04-01] MEDS: LEVETIRACETAM 500 MG TABLET PO SCH ×2 (10:30→21:57)
[2016-04-01] MEDS: ASPIRIN 81 MG TABLET, CHEWABLE PO SCH (10:30)
[2016-04-01] MEDS: ACETAMINOPHEN 325 MG TABLET PO PRN (10:31)
[2016-04-01] MEDS: LANSOPRAZOLE 30 MG TAB.RAP.DR PO SCH (10:31)
[2016-04-01] MEDS: FAMOTIDINE 20 MG TABLET PO SCH (10:31)
[2016-04-01] MEDS: CALCIUM CARBONATE 250 MG/VITAMIN D3 125 UNIT TABLET PO SCH ×2 (10:31→21:57)
[2016-04-01] MEDS: LISINOPRIL 10 MG TABLET PO SCH ×2 (10:32→21:57)
[2016-04-01] MEDS ORDERED: SOTALOL HCL 80 MG TABLET PO ONE (12:45)
--- NOTE | 2016-04-01 14:46 | PDOC PROGRESS REPORT ---
Subjective Progress Note for:: 04/01/16 Subjective:: Patient remains in sinus rhythm. She reports some twinges chest pain when ambulating. Patient denies shortness of breath, abdominal pain, nausea, vomiting, fevers, chills, diarrhea, constipation, headache, new onset weakness. Physical Exam Vital Signs: Temp Pulse Resp BP Pulse Ox 97.9 F 66 16 134/71 H 100 04/01/16 12:29 04/01/16 12:29 04/01/16 12:29 04/01/16 12:29 04/01/16 12:29 Intake & Output 03/31/16 04/01/16 04/02/16 06:59 06:59 06:59 Intake Total 1332 992 9210 Output Total 350 2300 700 Balance 1268 -1437 316 Weight 70.7 kg 67.3 kg Exam: General: Awake alert and orientedx3, no acute respiratory distress HEENT: AT/NC, PERRL, oropharynx is moist, pink, no scleral icterus, no conjunctival injection Neck: No JVD, trachea midline Chest: Clear to auscultation bilaterally, no wheezes rhonchi or rales CV: Regular rate and rhythm +murmur Abdomen: Soft, nontender to palpation, nondistended, active bowel sounds; no rebound, rigidity, or guarding Extremities: No cyanosis, clubbing or edema Neuro: Cranial nerves II through XII are grossly intact without focal deficits; awake alert and oriented x3 Psych: Flat affect, dysthymic mood Skin: No rashes or lesions Results Laboratory Results: 03/31/16 05:25 03/31/16 05:25 03/28/16 03/28/16 03/29/16 18:15 18:15 00:05 Creatine Kinase 53 52 CK-MB (CK-2) 0.70 Troponin I 0.013 03/29/16 03/29/16 03/29/16 00:05 06:40 06:48 Creatine Kinase 48 CK-MB (CK-2) 0.71 0.69 Troponin I < 0.012 < 0.012 Impressions: Chest X-Ray 03/28/16 12:34 IMPRESSION: Nothing acute. Assessment & Plan - Diagnosis (1) Atrial fibrillation with RVR Is this a current diagnosis for this admission?: YesPlan: Patient underwent cardioversion on 03/31/2016. Currently restarted on sotalol 40 mg by mouth every 12. Patient has been on full dose Eliquis. (2) Coronary artery disease Qualifiers: Coronary Disease-Associated Artery/Lesion type: [place] artery [place] vs. transplanted heart: [place] heart Associated angina: without angina Qualified Code(s): I25.10 - Atherosclerotic heart disease of [place] coronary artery without angina pectoris Is this a current diagnosis for this admission?: YesPlan: Ruled out for ACS (3) Dyslipidemia Is this a current diagnosis for this admission?: Yes (4) Chronic pain Qualifiers: Chronic pain type: chronic pain syndrome Qualified Code(s): G89.4 - Chronic pain syndrome Is this a current diagnosis for this admission?: YesPlan: Place patient on tramadol (5) Dysuria Is this a current diagnosis for this admission?: YesPlan: UA is negative (6) Do not resuscitate Is this a current diagnosis for this admission?: YesPlan: and daughter her surrogate decision makers. - Time Time Spent with patient: 25-34 minutes Medications reviewed and adjusted accordingly: Yes Within: within 24 hours
--- NOTE | 2016-04-01 15:50 | EKG REPORT ---
SEVERITY:- ABNORMAL ECG - SINUS RHYTHM NONSPECIFIC INTRAVENTRICULAR CONDUCTION DELAY CONSIDER ANTEROSEPTAL INFARCT : Confirmed by: Christie Lord 01-Apr-2016 15:48:50
--- NOTE | 2016-04-01 19:13 | PROGRESS NOTE E ---
Progress Note NAME: ANA TREJO : 1940 AGE: 75Y DATE: 04/01/2016 ROOM: 324 SUBJECTIVE: Note that the patient remains in sinus rhythm, but her heart rate is normally 60, but when she is ambulated, her heart rate goes up to 82. She denies any chest pain or discomfort. There is no PND, orthopnea. There are no anginal symptoms. There are no TIA or CVA symptoms. There is no bleeding on Eliquis. OBJECTIVE: GENERAL: On examination, the patient is well built and well nourished. VITAL SIGNS: She is afebrile with a temperature of 97.9 degrees orally. Pulse is 66 beats per minute. Blood pressure 134/71. Respirations are 16 per minute. O2 saturations 100% on room air. HEENT: Her head is atraumatic/normocephalic. EYES: Pupils are equal, round, reactive to light and accommodation. Extraocular movements are normal. There is no conjunctival pallor. There is no scleral icterus. EARS, NOSE, AND THROAT: Negative. NECK: Supple. There is no JVD. Carotids are equal. There is no bruit. Trachea is central. LUNGS: Clear to auscultation and percussion. HEART: S1, S2 is heard. S1 is of normal intensity. There is no S3 gallop. There is no S4 gallop. There is a systolic murmur in the left sternal border and the apex. There is no rub. ABDOMEN: Soft, nontender. There is no hepatosplenomegaly. Bowel sounds are well heard. There are no tender areas or masses. EXTREMITIES: Femorals are well felt. Leg pulses are well felt. There is no femoral bruit. There is no DVT or cellulitis. There is no calf tenderness. CENTRAL NERVOUS SYSTEM: The patient is conscious, awake, alert, oriented x3 with no focal deficits. PSYCHIATRIC: The patient's judgement and insight are intact. Her affect today is normal. DIAGNOSTIC DATA: The patient's EKG shows sinus rhythm, nonspecific IVCD with an incomplete left bundle branch block pattern. The patient's QTc is 456. PLAN: The recommendation was to start the patient back on sotalol 40 mg p.o. q.12 h. Also would recommend that the patient be placed on lisinopril 10 mg p.o. q.12 h. and also continue the Eliquis 5 mg b.i.d. Will follow up the patient in the office. Will sign off. Discussed with the hospitalist taking care of the patient. Discussed with the patient and patient's . Note that the patient is a DNR. Her is her surrogate healthcare decision maker. Note, 30 minutes spent on this patient including review of the patient's medications and also discussion with attending physician on the case. Note more than 50% of the time was spent in direct patient care. Will follow up the patient in the office. Will sign off. DICTATING PHYSICIAN: ESPINOZA GAVIRIA M.D. [id number] GOLDIE#: [id number] ID: [id number] JOB#: [id number] ACCT: [id number] cc: >
[2016-04-01] MEDS: SOTALOL HCL 80 MG TABLET PO SCH (21:57)
[2016-04-01] MEDS: SIMVASTATIN 10 MG TABLET PO SCH (21:57)
[2016-04-01] MEDS: LATANOPROST 0.005% OPH SOLN 2.5 ML OU SCH (21:58)
[2016-04-02] MEDS: ACETAMINOPHEN 325 MG TABLET PO PRN (01:59)
[2016-04-02] MEDS: FAMOTIDINE 20 MG TABLET PO SCH (10:06)
[2016-04-02] MEDS: LEVETIRACETAM 500 MG TABLET PO SCH (10:07)
[2016-04-02] MEDS: SOTALOL HCL 80 MG TABLET PO SCH (10:07)
[2016-04-02] MEDS: LANSOPRAZOLE 30 MG TAB.RAP.DR PO SCH (10:07)
[2016-04-02] MEDS: DOCUSATE SODIUM 100 MG CAPSULE PO SCH (10:07)
[2016-04-02] MEDS: APIXABAN 5 MG TABLET PO SCH (10:07)
[2016-04-02] MEDS: ASPIRIN 81 MG TABLET, CHEWABLE PO SCH (10:08)
[2016-04-02] MEDS: CALCIUM CARBONATE 250 MG/VITAMIN D3 125 UNIT TABLET PO SCH (10:08)
[2016-04-02] MEDS: SPIRONOLACTONE 25 MG TABLET PO SCH (10:08)
[2016-04-02] MEDS: LISINOPRIL 10 MG TABLET PO SCH (10:09)
[2016-04-02 11:42] VITALS: BP 132/84
--- NOTE | 2016-04-02 15:39 | PDOC DISCHARGE SUMMARY ---
General - Admit/Disc Date/PCP Admission Date/Primary Care Provider: 03/28/16 13:55 Dr. Taylor Discharge Date: 04/02/16 - Discharge Diagnosis (1) Chronic pain Is this a current diagnosis for this admission?: Yes (2) Coronary artery disease Is this a current diagnosis for this admission?: Yes (3) Dyslipidemia Is this a current diagnosis for this admission?: Yes (4) Atrial fibrillation status post cardioversion Is this a current diagnosis for this admission?: Yes (5) Dysuria Is this a current diagnosis for this admission?: Yes (6) Hypertension Is this a current diagnosis for this admission?: Yes (7) Do not resuscitate Is this a current diagnosis for this admission?: Yes - Additional Information Resuscitation Status: Do Not Resuscitate Discharge Diet: Cardiac Discharge Activity: Activity As Tolerated, Balance Activity w/Rest, Slowly Increase Activity Home Medications: Lansoprazole [Prevacid] 30 mg PO DAILY 12/01/14 Apixaban [Eliquis 2.5 mg Tablet] 2.5 mg PO Q12 #60 tablet 12/05/14 Metoprolol Succinate [Toprol XL 100 mg Tablet] 100 mg PO BID #60 tab.sr.24h Apixaban [Eliquis 5 mg Tablet] 5 mg PO Q12 03/28/16 Calcium Carbonate/Vitamin D3 [Calcium 600 + Vit D 400 Tablet] 1 each PO BID Diazepam [Valium] 5 mg PO HSP PRN 03/28/16 Docusate Sodium [Colace 100 mg Capsule] 100 mg PO QHS 03/28/16 Latanoprost [Xalatan 0.005% Oph Soln 2.5 ml] 1 drop OU QHS 03/28/16 Omeprazole 40 mg PO DAILY 03/28/16 Simvastatin [Zocor 20 mg Tablet] 20 mg PO QHS 03/28/16 Sotalol HCl [Betapace 80 mg Tablet] 40 mg PO Q12 03/28/16 Spironolactone [Aldactone 25 mg Tablet] 25 mg PO DAILY 03/28/16 Ubidecarenone [Coq-10] 100 mg PO DAILY 03/28/16 Acetaminophen [Tylenol 325 mg Tablet] 650 mg PO Q4HP PRN tablet 04/02/16 Buprenorphine [Butrans] 1 each TD PRN PRN 04/02/16 Levetiracetam [Keppra 500 mg Tablet] 500 mg PO Q12 #0 tablet 04/02/16 Lisinopril [Prinivil 10 mg Tablet] 10 mg PO Q12 tablet 04/02/16 History of Present Illness Patient complains of: Palpitations History of Present Illness: ANA TREJO is a 75 year old female that presented with palpitations. She was found to be in atrial fibrillation with rapid ventricular response and was admitted to the hospital. Hospital Course Hospital Course: Patient was admitted for atrial fibrillation with rapid ventricular response. She underwent cardioversion by Dr. Lewis of cardiology on 03/30/2016. She has been maintained on her outpatient dose of sotalol 40 mg twice daily and Eliquis 5 mg twice daily. Serial cardiac enzymes negative for KS. With regard to anticoagulation management. Patient has occasional mild hemorrhoidal bleeding. I have addressed the risk/benefit/alternatives of Eliquis and she strongly feels that she would like to stay on this medication given her history of TIAs when she came off the medication. I advised her that should her bleeding become worse that she may need to be taken off this medication. I will discontinue her aspirin 81 mg daily for reasons mentioned above. With regard to patient's hypertension her lisinopril was decreased to 10 mg twice daily secondary to low blood pressures. Physical Exam Vital Signs: Temp Pulse Resp BP Pulse Ox 97.3 F 59 L 16 132/84 H 100 04/02/16 11:38 04/02/16 11:38 04/02/16 11:38 04/02/16 11:38 04/02/16 11:38 Intake & Output 04/01/16 04/02/16 04/03/16 06:59 06:59 06:59 Intake Total 863 1711 Output Total 2300 2300 Balance -9848 -429 Weight 67.3 kg 67.3 kg GENERAL: No acute distress HEENT: Conjunctiva clear, nonicteric, moist mucous membranes, no JVD, midline trachea RESPIRATORY: Clear to auscultation bilaterally, no wheezes, no rhonchi CARDIAC: Regular rate and rhythm, no murmurs/gallops/rubs ABDOMEN: Soft, nondistended, nontender, positive bowel sounds, no rebound, no guarding EXTREMETIES: No edema, cyanosis, clubbing NEUROLOGIC: Alert, oriented to person/place/time, CN's grossly intact, no focal deficits SKIN: No rash, wounds PSYCH: Normal mood, normal affect Results Laboratory Results: 03/31/16 05:25 03/31/16 05:25 03/28/16 03/28/16 03/29/16 18:15 18:15 00:05 Creatine Kinase 53 52 CK-MB (CK-2) 0.70 Troponin I 0.013 03/29/16 03/29/16 03/29/16 00:05 06:40 06:48 Creatine Kinase 48 CK-MB (CK-2) 0.71 0.69 Troponin I < 0.012 < 0.012 Impressions: Chest X-Ray 03/28/16 12:34 IMPRESSION: Nothing acute. Qualifiers PATEINT BEING DISCHARGED WITH ANY OF THE FOLLOWING DIAGNOSIS?: No Plan Discharge Plan: Follow-up primary care provider Dr. Mendiola. Follow-up cardiology Dr. Lewis. Time Spent: Less than 30 Minutes
[2016-04-02] MEDS ORDERED: LISINOPRIL 10 MG TABLET PO SCH (22:00)
[2016-04-03] MEDS ORDERED: LISINOPRIL 10 MG TABLET PO SCH (10:00)
== END 2016-04-02 12:31 | disposition home or self-care (01) | DRG 310 ==
LOC: ER 11:59 → EH 13:55 → UNDOADMIN 14:05 → EH 14:05 → 3W 16:37 → EH 16:37
PROVIDERS: ADMIT Family Medicine; ATTEND Family Medicine
PROC: 5A2204Z Restoration of Cardiac Rhythm, Single (ICD-10-PCS; principal; 2016-03-31)
DX: I48.1 Persistent atrial fibrillation (principal); I25.10 Atherosclerotic heart disease of native coronary artery without angina pectoris; I10 Essential (primary) hypertension; I95.1 Orthostatic hypotension; I25.2 Old myocardial infarction; K21.9 Gastro-esophageal reflux disease without esophagitis; E78.5 Hyperlipidemia, unspecified; G89.4 Chronic pain syndrome; M54.32 Sciatica, left side; R30.0 Dysuria; M19.90 Unspecified osteoarthritis, unspecified site; Z95.5 Presence of coronary angioplasty implant and graft; Z86.73 Personal history of transient ischemic attack (TIA), and cerebral infarction without residual deficits; Z90.710 Acquired absence of both cervix and uterus; Z66 Do not resuscitate; Z82.49 Family history of ischemic heart disease and other diseases of the circulatory system; Z80.9 Family history of malignant neoplasm, unspecified; Z82.3 Family history of stroke; Z79.82 Long term (current) use of aspirin; Z79.899 Other long term (current) drug therapy; Z79.02 Long term (current) use of antithrombotics/antiplatelets; Z87.440 Personal history of urinary (tract) infections
CPT/HCPCS: 36415; 410; 71010; 80048; 80053; 81001; 82550; 82553; 83735; 84443; 84484; 85025; 85610; 85730; 87086; 93005; 93010; 96365; 99291; J2250; J2704; J3475; J3490; J7030

== ENCOUNTER 2016-07-21 09:47 | Emergency (ER) | payer MEDICARE, OTHER ==
[2016-07-21 09:52] VITALS: BP 171/79
[2016-07-21] MEDS ORDERED: LIDOCAINE 5% (700 MG) TRANSDERMAL ADH..PATCH TP ONE (09:59)
[2016-07-21] MEDS ORDERED: CEPHALEXIN 500 MG CAPSULE PO ONE (09:59)
--- NOTE | 2016-07-21 10:05 | ER Document Report ---
ED General - General Chief Complaint: Leg Pain Stated Complaint: L LEG PAIN Time Seen by Provider: 07/21/16 09:59 TRAVEL OUTSIDE OF THE [place] IN LAST 30 DAYS: No - HPI Patient complains to provider of: left leg pain Notes: Patient has a history of fibrillation is currently on a eliqus. Patient states was having severe left lower leg pain from the upper To lower calf last night. Patient with this morning has a red area on the lateral side of the calf that is approximately 3 cm patient has no known injuries To Be Further Evaluated. Denies fevers chills nausea vomiting - Related Data Allergies/Adverse Reactions: No Known Allergies Allergy (Verified 07/21/16 09:55) Past Medical History - Social History Smoking Status: Never Smoker Chew tobacco use (# tins/day): No Frequency of alcohol use: None Drug Abuse: None Family History: CAD, CVA, Hyperlipidemia, Hypertension, Malignancy - Past Medical History Cardiac Medical History: Reports: Hx Atrial Fibrillation, Hx Coronary Artery Disease, Hx Heart Attack, Hx Hypertension Renal/ Medical History: Denies: Hx Peritoneal Dialysis GI Medical History: Reports: Hx Gastroesophageal Reflux Disease Musculoskeltal Medical History: Reports Hx Arthritis Psychiatric Medical History: Denies: Hx Depression Past Surgical History: Reports: Hx Cardiac Catheterization, Hx Coronary Stent - 5 stents and 4 vessels. Last stent was over 12 years ago., Hx Gynecologic Surgery - Ovarian cyst surgery, Hx Hysterectomy, Hx Orthopedic Surgery - Immunizations Hx Diphtheria, Pertussis, Tetanus Vaccination: No Hx Pneumococcal Vaccination: 03/10/09 Review of Systems - Review of Systems Constitutional: No symptoms reported EENT: No symptoms reported Cardiovascular: No symptoms reported Respiratory: No symptoms reported Gastrointestinal: No symptoms reported Genitourinary: No symptoms reported Female Genitourinary: No symptoms reported Musculoskeletal: No symptoms reported Skin: Other - Red area left upper calf Hematologic/Lymphatic: No symptoms reported Neurological/Psychological: No symptoms reported Physical Exam - Vital signs Vitals: Temp Pulse Resp BP Pulse Ox 98.7 F 66 13 171/79 H 98 07/21/16 09:48 07/21/16 09:48 07/21/16 09:48 07/21/16 09:48 07/21/16 09:48 Interpretation: Normal - General General appearance: Appears well, Alert - HEENT Head: Normocephalic, Atraumatic Eyes: Normal Pupils: PERRL - Respiratory Respiratory status: No respiratory distress Chest status: Nontender Breath sounds: Normal Chest palpation: Normal - Cardiovascular Rhythm: Regular Heart sounds: Normal auscultation Murmur: No - Abdominal Inspection: Normal Distension: No distension Bowel sounds: Normal Tenderness: Nontender Organomegaly: No organomegaly - Back Back: Normal, Nontender - Extremities General upper extremity: Normal inspection, Nontender, Normal color, Normal ROM , Normal temperature General lower extremity: Nontender, Normal color, Normal ROM, Normal temperature , Normal weight bearing. No: Normal inspection - Patient has no pain to palpation no swelling of the left leg. Right leg is unaffected. Patient does have approximately a 3 cm x 3 cm area of induration redness and warmth more likely possibly infected bug bite but bite reaction or beginning of cellulitis. , Félix's sign - Neurological Neuro grossly intact: Yes Cognition: Normal Orientation: AAOx4 [place] Coma Scale Eye Opening: Spontaneous David Coma Scale Verbal: Oriented [place] Coma Scale Motor: Obeys Commands [place] Coma Scale Total: 15 Speech: Normal Motor strength normal: LUE, RUE, LLE, RLE Sensory: Normal - Psychological Associated symptoms: Normal affect, Normal mood - Skin Skin Temperature: Warm Skin Moisture: Dry Skin Color: Normal Course - Re-evaluation Re-evalutation: 07/21/16 10:06 Nondescript erythema induration no signs of abscess formation on the left upper leg. Patient will be given a Lidoderm patch for pain control. Patient will be started on Keflex area was marked patient was also encouraged to use Benadryl home. Patient is to follow-up primary care physician. Patient states compliance with her medications no swelling no pain to palpation no cords highly unlikely patient has a blood clot at this time - Vital Signs Vital signs: Temp Pulse Resp BP Pulse Ox 98.7 F 66 13 171/79 H 98 07/21/16 09:48 07/21/16 09:48 07/21/16 09:48 07/21/16 09:48 07/21/16 09:48 Discharge - Discharge Clinical Impression: Left leg pain Cellulitis Qualifiers: Site of cellulitis: unspecified site Qualified Code(s): L03.90 - Cellulitis, unspecified Condition: Good Disposition: HOME, SELF-CARE Instructions: Cellulitis ([facility]), Swollen Insect Bite or Sting ([facility]) Additional Instructions: Examination today is consistent with a possible infected insect bite and concern of developing cellulitis is that the areas warm to the touch red and indurated. We will start you on antibiotic that we normally start people on for skin infections Keflex. Please follow-up with your primary care physician. At this time your examination of your legs does not consistent with a blood clot. We will give you a Lidoderm patch for pain. I would recommend still taking Tylenol at home for pain. If you cannot afford the Lidoderm patch in the ask her pharmacist about [id number] Lidoderm option. Return to the ER symptoms worsen. If the redness goes beyond the red gissell by about an inch please return to the ER or see her doctor You may also take Benadryl for the redness Prescriptions: Cephalexin Monohydrate [Keflex 500 mg Capsule] 500 mg PO QID 7 Days Lidocaine [Lidoderm 5% (700 mg) Transdermal Patch] 1 patch TP DAILY #10 adh..patch Forms: Return to Work
== END 2016-07-21 10:10 | disposition home or self-care (01) ==
LOC: ER 09:47
DX: M79.662 Pain in left lower leg (principal); L03.90 Cellulitis, unspecified; I25.10 Atherosclerotic heart disease of native coronary artery without angina pectoris; I10 Essential (primary) hypertension; I48.91 Unspecified atrial fibrillation; Z79.01 Long term (current) use of anticoagulants; Z98.61 Coronary angioplasty status
CPT/HCPCS: 99283; A9270

== ENCOUNTER 2016-11-14 17:36 | Emergency (ER) | payer MEDICARE, OTHER ==
[2016-11-14] MEDS ORDERED: DILTIAZEM HCL INJ 25 MG/5 ML VIAL ONE (18:15)
[2016-11-14] MEDS ORDERED: DILTIAZEM HCL INJ 25 MG/5 ML VIAL IV ONE (18:21)
[2016-11-14] MEDS ORDERED: NORMAL SALINE 1000 ML 1,000 ML IV ONE (18:25)
[2016-11-14 18:32] LABS: ABSOLUTE EOSINOPHILS # (AUTO) 0.1 10^3/uL (0.0-0.6); ABSOLUTE LYMPHOCYTES (AUTO) 2.2 10^3/uL (0.5-4.7); ABSOLUTE MONOCYTES (AUTO) 0.9 10^3/uL (0.1-1.4); ABSOLUTE NEUT (AUTO) 5.7 10^3/uL (1.7-8.2); BASOPHILS % (AUTO) 0.4 % (0-2); HEMATOCRIT 41.4 % (36.0-47.0); HEMOGLOBIN 13.9 g/dL (12.0-15.5); HGB HCT DIFFERENCE 0.3; LYMPHOCYTES % (AUTO) 25.2 % (13-45); MEAN CORPUSCULAR HEMOGLOBIN 31.6 pg (27.0-33.4); MEAN CORPUSCULAR HGB CONC 33.5 g/dL (32.0-36.0); MEAN CORPUSCULAR VOLUME 94 fl (80-97); MONOCYTES % (AUTO) 9.8 % (3-13); RED BLOOD COUNT 4.39 10^6/uL (3.72-5.28); RED CELL DISTRIBUTION WIDTH 12.5 % (11.5-14.0); SEGMENTED NEUTROPHILS % (AUTO) 63.6 % (42-78); WHITE BLOOD COUNT 8.9 10^3/uL (4.0-10.5)
[2016-11-14 18:41] LABS: ALANINE AMINOTRANSFERASE 20 U/L (9-52); ALBUMIN 4.5 g/dL (3.5-5.0); ALKALINE PHOSPHATASE 48 U/L (38-126); ANION GAP 12 (5-19); ASPARTATE AMINO TRANSFERASE 26 U/L (14-36); BILIRUBIN,DIRECT 0.5 mg/dL (0.0-0.4); BILIRUBIN,TOTAL 0.7 mg/dL (0.2-1.3); BLOOD UREA NITROGEN 18 mg/dL (7-20); CALCIUM 10.3 mg/dL (8.4-10.2); CARBON DIOXIDE 25 mmol/L (22-30); CHLORIDE 106 mmol/L (98-107); CREATINE KINASE 89 U/L (30-135); CREATININE RESULT 1.13 mg/dL (0.52-1.25); GLUCOSE 119 mg/dL (75-110); POTASSIUM 3.9 mmol/L (3.6-5.0); SODIUM 142.8 mmol/L (137-145); TOTAL PROTEIN 7.7 g/dL (6.3-8.2)
[2016-11-14 18:42] LABS: PROTHROMBIN TIME 14.9 SEC (11.4-15.4)
[2016-11-14 18:53] LABS: CREATINE KINASE MB 0.64 ng/mL (<4.55)
[2016-11-14 18:55] LABS: TROPONIN I < 0.012 ng/mL
[2016-11-14 18:59] LABS: FREE T3 3.59 pg/mL (2.77-5.27)
[2016-11-14 19:12] LABS: THYROID STIMULATING HORMONE 4.41 uIU/mL (0.47-4.68)
[2016-11-14 20:52] LABS: APPEARANCE,URINE CLEAR; BILIRUBIN,URINE NEGATIVE (NEGATIVE); GLUCOSE, URINE NEGATIVE (NEGATIVE); KETONES,URINE NEGATIVE (NEGATIVE); LEUKOCYTE ESTERASE,URINE NEGATIVE (NEGATIVE); NITRITE,URINE NEGATIVE (NEGATIVE); PROTEIN,URINE NEGATIVE (NEGATIVE); URINE SPECIFIC GRAVITY 1.003; UROBILINOGEN,URINE NEGATIVE mg/dL (<2.0)
--- NOTE | 2016-11-14 21:04 | ER Document Report ---
ED General - General Chief Complaint: Blood Pressure Problem Stated Complaint: BLOOD PRESSURE PROBLEMS Time Seen by Provider: 11/14/16 18:05 TRAVEL OUTSIDE OF THE [place] IN LAST 30 DAYS: No - HPI Notes: 75-year-old female with a history of atrial fibrillation needing to be cardioverted in the past presents emergency department complaining of increased heart rate and increased blood pressure for the past 90 minutes prior to arrival. Denies any chest pain or shortness of breath but does feel washed out and somewhat lightheaded. States that she had some pain between her shoulder blades today that has since resolved. Denies skipping any doses of her medications or any changes in her medication. Is taking sotalol as prescribed. - Related Data Allergies/Adverse Reactions: No Known Allergies Allergy (Verified 07/21/16 09:55) Past Medical History - General Information source: Patient - Social History Smoking Status: Never Smoker Cigarette use (# per day): No Chew tobacco use (# tins/day): Yes Frequency of alcohol use: None Drug Abuse: None Family History: CAD, CVA, Hyperlipidemia, Hypertension, Malignancy - Past Medical History Cardiac Medical History: Reports: Hx Atrial Fibrillation, Hx Coronary Artery Disease, Hx Heart Attack, Hx Hypertension Renal/ Medical History: Denies: Hx Peritoneal Dialysis GI Medical History: Reports: Hx Gastroesophageal Reflux Disease Musculoskeltal Medical History: Reports Hx Arthritis Psychiatric Medical History: Denies: Hx Depression Past Surgical History: Reports: Hx Cardiac Catheterization, Hx Coronary Stent - 5 stents and 4 vessels. Last stent was over 12 years ago., Hx Gynecologic Surgery - Ovarian cyst surgery, Hx Hysterectomy, Hx Orthopedic Surgery - Immunizations Hx Diphtheria, Pertussis, Tetanus Vaccination: No Hx Pneumococcal Vaccination: 03/10/09 Review of Systems - Review of Systems Constitutional: See HPI, Weakness EENT: No symptoms reported Cardiovascular: See HPI, Heart racing. denies: Chest pain Respiratory: No symptoms reported. denies: Short of breath -: Yes All other systems reviewed and negative Physical Exam - Vital signs Vitals: Resp Pulse Ox 19 96 11/14/16 17:49 11/14/16 17:49 Interpretation: Hypertensive, Tachycardic - Notes Notes: GENERAL: Alert, interacts well. No acute distress. HEAD: Normocephalic, atraumatic EYES: Pupils equal, round and reactive to light, extraocular movements intact. ENT: Oral mucosa moist, tongue midline. NECK: Full range of motion, supple, trachea midline. LUNGS: Clear to auscultation bilaterally, no wheezes, rales or rhonchi, no respiratory distress. HEART: Tachycardic, irregularly irregular. ABDOMEN: Soft, nontender, nondistended, bowel sounds present in all 4 quadrants. EXTREMITIES: Moves all 4 extremities spontaneously, no edema, radial and dorsalis pedis pulses 2/4 bilaterally. No cyanosis. NEUROLOGICAL: Alert and oriented x3, normal speech. PSYCH: Normal mood, normal affect. SKIN: Warm, Dry, normal turgor, no rashes or lesions noted. Course - Re-evaluation Re-evalutation: 11/14/16 20:59 Patient given bolus of Cardizem 25 mg IV 1, heart rate responded well, did not develop any hypotension, patient actually spontaneously reverted into normal sinus rhythm. Cardiac enzymes negative, 11/14/16 21:00 CBC unremarkable, coags normal, CMP shows very slight renal failure with a GFR of 47, patient was hydrated with a liter of normal saline, thyroid function normal, urinalysis unremarkable. At present there is no reason to keep the patient in the hospital, she has returned to normal sinus rhythm. Patient will be discharged home, asked to follow-up with Dr. Gaviria her housekeeping aide as an outpatient. Will continue to take her sotalol at its regular dosage. - Vital Signs Vital signs: Temp Pulse Resp BP Pulse Ox 98.4 F 20 127/61 H 92 11/14/16 18:00 11/14/16 21:00 11/14/16 20:50 11/14/16 21:00 - Laboratory Result Diagrams: 11/14/16 18:13 11/14/16 18:13 Laboratory results interpreted by me: 11/14/16 18:13 Est GFR ( Amer) 57 L Est GFR (Non-Af Amer) 47 L Glucose 119 H Calcium 10.3 H Direct Bilirubin 0.5 H - EKG Interpretation by Me Additional EKG results interpreted by me: 11/14/16 21:00 EKG shows atrial fibrillation with rapid ventricular response at a rate of 177, left axis deviation, no ST segment elevations or depressions, there is an interventricular conduction delay per my interpretation. 11/14/16 21:13 Repeat EKG shows sinus bradycardia at a rate of 59, incomplete left bundle branch block, poor R-wave progression, no ST segment elevations or depressions no T-wave inversions per my interpretation. Discharge - Discharge Clinical Impression: Atrial fibrillation with rapid ventricular response Condition: Stable Disposition: HOME, SELF-CARE Additional Instructions: Today your heart was going too fast (atrial fibrillation with rapid ventricular response) we were able to slow it down by giving him a bolus of Cardizem 25 mg IV. After this her heart rate returned to normal and then it went back to normal sinus rhythm. Please continue taking all of your medications as previously prescribed. Do not skip any doses. Please follow-up with Dr. Gaviria within the next 1-2 weeks. Please return to the emergency department for chest pain or if your rapid heart rate should return. Referrals: ESPINOZA GAVIRIA MD [ACTIVE STAFF] - Follow up in 1 week
[2016-11-14 21:17] VITALS: BP 130/61
--- NOTE | 2016-11-15 07:57 | EKG REPORT ---
SEVERITY:- ABNORMAL ECG - SINUS RHYTHM INCOMPLETE LEFT BUNDLE BRANCH BLOCK BORDERLINE R WAVE PROGRESSION, ANTERIOR LEADS : Confirmed by: Gian Staples MD 15-Nov-2016 07:56:58
--- NOTE | 2016-11-15 07:58 | EKG REPORT ---
SEVERITY:- ABNORMAL ECG - ATRIAL FIBRILLATION WITH RAPID V-RATE PROBABLE LVH WITH SECONDARY REPOL ABNRM : Confirmed by: Gian Staples MD 15-Nov-2016 07:57:11
== END 2016-11-14 21:17 | disposition home or self-care (01) ==
LOC: ER 17:36
DX: I48.91 Unspecified atrial fibrillation (principal); R03.0 Elevated blood-pressure reading, without diagnosis of hypertension
CPT/HCPCS: 93005; 99284; 96361; 96374; 36415; 84439; 82553; 82550; 84443; 85025; 85610; 80053; 81001; 84484; 84481; 93010; J3490; J7030

== ENCOUNTER → 2016-12-11 | Outpatient (CLI) | payer MEDICARE, OTHER ==
--- NOTE | 2016-12-11 12:50 | RADIOLOGY REPORT (SQ) ---
EXAM DESCRIPTION: CT ABD/PELVIS NO ORAL OR IV COMPLETED DATE/TIME: 12/11/2016 12:36 pm REASON FOR STUDY: NAUSEA (R11.0), LOWER ABD PAIN (R10.30), WEDGE COMPRESSION FX (S32.050S) R10.30 L OWER ABDOMINAL PAIN, UNSPECIFIED R11.0 NAUSEA S32.050S WEDGE COMPRESSION FRACTURE OF FIFTH LUMBAR V ERTEBRA COMPARISON: 2013. TECHNIQUE: CT scan of the abdomen and pelvis performed without intravenous or oral contrast. Images reviewed with lung, soft tissue, and bone windows. Reconstructed coronal and sagittal MPR images revi ewed. All images stored on PACS. All CT scanners at this facility use dose modulation, iterative reconstruction, and/or weight based d osing when appropriate to reduce radiation dose to as low as reasonably achievable (ALARA). [facility]: Dose Right [facility]: CareDose [facility]: Dose Right [facility]: Teradose 4D [facility]: Smart Keegy RADIATION DOSE: Up-to-date CT equipment and radiation dose reduction techniques were employed. CTDIv ol: 4.7 mGy. DLP: 227 mGy-cm.mGy. LIMITATIONS: None. FINDINGS: LOWER CHEST: No significant findings. No nodules or infiltrates. NON-CONTRASTED LIVER, SPLEEN, ADRENALS: Evaluation limited by lack of IV contrast. No identified sign ificant masses. PANCREAS: No masses. No peripancreatic inflammatory changes. GALLBLADDER: No identified stones by CT criteria. No inflammatory changes to suggest cholecystitis. RIGHT KIDNEY AND URETER: No solid masses. No significant calcification. No hydronephrosis or hydroure ter. LEFT KIDNEY AND URETER: No solid masses. No significant calcification. No hydronephrosis or hydrouret er. AORTA AND RETROPERITONEUM: Dense aortic calcification. No evidence of aneurysm or retroperitoneal ma ss. BOWEL AND PERITONEAL CAVITY: No obvious masses or inflammatory changes. No free fluid. APPENDIX: Surgically absent. PELVIS, BLADDER, AND ABDOMINAL WALL:Numerous pelvic calcified phleboliths. Bladder unremarkable. No free fluid or mass detected. No bowel containing abdominal wall hernia. BONES: Chronic appearing L4 compression fracture. Bones otherwise intact. OTHER: No other significant finding. IMPRESSION: 1. No acute or suspicious abdominopelvic abnormality. TECHNICAL DOCUMENTATION: JOB ID: [id number] Quality ID # [id number]: Final reports with documentation of one or more dose reduction techniques (e.g., Au tomated exposure control, adjustment of the mA and/or kV according to patient size, use of iterative reconstruction technique) 2010 [employer]- All Rights Reserved
== END ==
LOC: RAD 12:19
PROVIDERS: ATTEND Family Medicine
DX: R10.30 Lower abdominal pain, unspecified (principal); R11.0 Nausea; S32.050S Wedge compression fracture of fifth lumbar vertebra, sequela
CPT/HCPCS: 74176

== ENCOUNTER 2017-01-07 14:46 | Day surgery (SDC) | payer MEDICARE, OTHER ==
[2017-01-07] MEDS ORDERED: NALOXONE HCL INJ/PF 0.4 MG/1 ML SDV ONE (15:44)
[2017-01-07] MEDS ORDERED: FENTANYL CITRATE INJ/PF 100 MCG/2 ML AMPUL ONE ×2 (15:45)
[2017-01-07] MEDS ORDERED: FLUMAZENIL INJ 0.5 MG/5 ML VIAL ONE (15:45)
[2017-01-07] MEDS ORDERED: EPINEPHRINE INJ 1 MG/10 ML DISP.SYRIN ONE (15:45)
[2017-01-07] MEDS ORDERED: GLUCAGON,HUMAN RECOMB 1 MG INJ ONE (15:46)
[2017-01-07] MEDS: MIDAZOLAM 2 MG/2 ML INJ ONE ×2 (16:08→16:15)
--- NOTE | 2017-01-07 16:51 | Operative Report ---
Operative Report DATE OF SURGERY: 01/07/17 Operative Report: Pre-op diagnosis: Heme positive stool Post-op diagnosis: 1. Normal EGD 2. Polyps in the ascending and descending colon 3. Internal hemorrhoids Surgery: Upper endoscopy and Colonoscopy with polypectomy Medications: Versed 3mg, Fentanyl 100mcg IV push Tissue removed: Colon polyps Procedure: After informed consent obtained from patient, patient's pharynx was sprayed with Hurricane and conscious sedation was achieved. The upper endoscope was then inserted into the esophagus under direct vision and advanced into the stomach and further into the duodenum. Detailed examination of the duodenum, stomach and the esophagus was then performed. A digital rectal examination was performed and this was unremarkable. The colonoscope was inserted into the rectum and advanced to the cecum. The appendiceal orifice and the terminal ileum were both identified. The mucosa was examined into details as the colonoscope was slowly pulled out of the patient. The endoscope was retroflexed in the rectum. Patient tolerated the procedure well. Findings Esophagus: Normal Stomach: Normal Duodenum: Normal Terminal ileum: Not intubated Cecum: Normal Ascending colon: 5 mm polyp removed with a hot snare from the mid ascending colon Transverse colon: Normal Descending colon: 6 mm polyp removed with the hot snare from the proximal descending colon Sigmoid colon: Normal Rectum: Normal except for internal hemorrhoids Plan: Resume Eliquis tomorrow OPERATION: .
[2017-01-07 17:31] VITALS: BP 121/53
== END 2017-01-07 17:35 | disposition home or self-care (01) ==
LOC: END 14:46
PROVIDERS: ATTEND Internal Medicine Gastroenterology
PROC: 0DJ08ZZ Inspection of Upper Intestinal Tract, Via Natural or Artificial Opening Endoscopic (ICD-10-PCS; principal; 2017-01-07 15:30)
PROC: 0DBK8ZX Excision of Ascending Colon, Via Natural or Artificial Opening Endoscopic, Diagnostic (ICD-10-PCS; 2017-01-07 15:30)
DX: D12.2 Benign neoplasm of ascending colon (principal); K62.5 Hemorrhage of anus and rectum; D12.4 Benign neoplasm of descending colon; K64.8 Other hemorrhoids; K21.9 Gastro-esophageal reflux disease without esophagitis; E78.00 Pure hypercholesterolemia, unspecified; Z79.01 Long term (current) use of anticoagulants; Z79.899 Other long term (current) drug therapy; Z86.73 Personal history of transient ischemic attack (TIA), and cerebral infarction without residual deficits; I25.2 Old myocardial infarction
CPT/HCPCS: 43235; 45385; 88305 ×2; J2250; J3010; J0171; J1610; J2310; J3490

== ENCOUNTER 2017-08-01 18:45 | Emergency (ER) | payer MEDICARE, OTHER ==
--- NOTE | 2017-08-01 19:33 | ER Document Report ---
ED Fall - General Chief Complaint: Ankle Pain Stated Complaint: ANKLE PAIN Time Seen by Provider: 08/01/17 19:30 Mode of Arrival: Wheelchair Information source: Patient Notes: 76-year-old female presents to ED for complaint of left foot pain and right chest pain after she rolled her left ankle causing her to fall landing on her right chest. She states this happened soon before she came today. TRAVEL OUTSIDE OF THE [place] IN LAST 30 DAYS: No - HPI Occurred: This evening Where: Indoors Context: Fell from standing - Rolled her ankle Associated symptoms: None Location of injury/pain: Other - Right ribs and left foot pain Quality of pain: Achy, Dull Severity: Moderate Pain Level: 3 - Related data Allergies/Adverse Reactions: No Known Allergies Allergy (Verified 08/01/17 18:52) Past Medical History - General Information source: Patient - Social History Smoking Status: Never Smoker Cigarette use (# per day): No Chew tobacco use (# tins/day): No Smoking Education Provided: No Frequency of alcohol use: None Drug Abuse: None Lives with: Family Family History: CAD, CVA, Hyperlipidemia, Hypertension, Malignancy Patient has suicidal ideation: No Patient has homicidal ideation: No - Past Medical History Cardiac Medical History: Reports: Hx Atrial Fibrillation, Hx Coronary Artery Disease, Hx Heart Attack - 4 YRS AGO, 5X STENTS PLACED, Hx Hypercholesterolemia , Hx Hypertension - ON MEDS Pulmonary Medical History: Reports: Hx Pneumonia - H/O A WHILE AGO EENT Medical History: Reports: None Neurological Medical History: Reports: Hx Cerebrovascular Accident Endocrine Medical History: Reports: None Renal/ Medical History: Reports: Hx Ovarian Cysts Malignancy Medical History: Reports: None GI Medical History: Reports: None, Hx Gastroesophageal Reflux Disease Musculoskeltal Medical History: Reports Hx Arthritis - BACK, SHOULDERS, HIPS, LEGS, Reports Hx Musculoskeletal Trauma Psychiatric Medical History: Reports: None Traumatic Medical History: Reports: Hx Spine Fracture Infectious Medical History: Reports: None Past Surgical History: Reports: Hx Cardiac Catheterization, Hx Coronary Stent - 5 stents and 4 vessels. Last stent was over 12 years ago., Hx Gynecologic Surgery - Ovarian cyst surgery, Hx Hysterectomy - Immunizations Immunizations up to date: No Hx Diphtheria, Pertussis, Tetanus Vaccination: No Hx Pneumococcal Vaccination: 03/10/09 Review of Systems - Review of Systems Constitutional: No symptoms reported EENT: No symptoms reported Cardiovascular: No symptoms reported Respiratory: Other - Right rib pain with pain with deep breath or palpation Gastrointestinal: No symptoms reported Genitourinary: No symptoms reported Female Genitourinary: No symptoms reported Musculoskeletal: Other - Left foot pain and bruising Skin: Other - Bruising to left foot Hematologic/Lymphatic: No symptoms reported Neurological/Psychological: No symptoms reported -: Yes All other systems reviewed and negative Physical Exam - Vital signs Vitals: Temp Pulse Resp BP Pulse Ox 98.8 F 81 14 161/76 H 96 08/01/17 18:55 08/01/17 18:55 08/01/17 18:55 08/01/17 18:55 08/01/17 18:55 Interpretation: Normal - General General appearance: Appears well, Alert - HEENT Head: Normocephalic, Atraumatic Eyes: Normal Pupils: PERRL - Respiratory Respiratory status: No respiratory distress Chest status: Tender, Pain on movement, Pain with cough, Pain with deep breathing. No: Ecchymosis Breath sounds: Normal Chest palpation: Normal - Cardiovascular Rhythm: Regular Heart sounds: Normal auscultation Murmur: No - Abdominal Inspection: Normal Distension: No distension Bowel sounds: Normal Tenderness: Nontender Organomegaly: No organomegaly - Back Back: Normal, Nontender - Extremities General upper extremity: Normal inspection, Nontender, Normal color, Normal ROM , Normal temperature General lower extremity: Normal temperature. No: Félix's sign Ankle: Normal, Nontender Foot: Tender, Ecchymosis, Edema, Metatarsal compress. pain, No evidence of FB, Unable to bear weight. No: Abrasion, Deformity, Instability, Navicular tenderness, Tender 5th metatarsal - Neurological Neuro grossly intact: Yes Cognition: Normal Orientation: AAOx4 David Coma Scale Eye Opening: Spontaneous [place] Coma Scale Verbal: Oriented David Coma Scale Motor: Obeys Commands [place] Coma Scale Total: 15 Speech: Normal Motor strength normal: LUE, RUE, LLE, RLE Sensory: Normal - Psychological Associated symptoms: Normal affect, Normal mood - Skin Skin Temperature: Warm Skin Moisture: Dry Skin Color: Normal Course - Re-evaluation Re-evalutation: 08/01/17 21:03 X-ray discussed with patient and written report given to patient. Patient has a nondisplaced fracture of the fifth metatarsal tuberosity. Patient was placed in a posterior ankle splint and instructed to follow-up with orthopedics. Patient is to elevate and ice the foot. Patient also has a contusion to the right ribs. There is no fracture no pneumothorax. Patient was given instructions for a incentive spirometry to exercise her lungs. - Vital Signs Vital signs: Temp Pulse Resp BP Pulse Ox 98.8 F 81 14 161/76 H 96 08/01/17 18:55 08/01/17 18:55 08/01/17 18:55 08/01/17 18:55 08/01/17 18:55 - Diagnostic Test Radiology reviewed: Image reviewed, Reports reviewed Procedures - Immobilization Left Foot Immobilizer type: Posterior ankle Performed by: RN Post-Proc Neuro Vasc Exam: Normal Alignment checked and good: Yes Discharge - Discharge Clinical Impression: Fracture of 5th metatarsal Qualifiers: Encounter type: initial encounter Fracture type: closed Fracture alignment: nondisplaced Laterality: left Qualified Code(s): S92.355A - Nondisplaced fracture of fifth metatarsal bone, left foot, initial encounter for closed fracture Contusion of rib on right side Qualifiers: Encounter type: initial encounter Qualified Code(s): S20.211A - Contusion of right front wall of thorax, initial encounter Condition: Stable Disposition: HOME, SELF-CARE Additional Instructions: Foot Fracture You have a fracture in one of the small bones of the foot. Some foot fractures are very serious, while others are no more serious than a sprain. This fracture should heal well, but requires protection for proper healing. Initially, you should elevate and ice pack the foot, and bear no weight on it. Usually, a cast or a walking boot will be required. Some milder foot fractures can be managed with temporary rest, then a firm shoe. Your physician has determined the seriousness of your foot fracture and has outlined the treatment plan for you. You should follow up as instructed to insure that the fracture heals without complications. Call the doctor or return at once if pain or swelling becomes severe, if a re-injury occurs, or if any part of the foot becomes numb. Rib Contusion You have been diagnosed as having bruised ribs. It will usually take a few weeks for these injured ribs to heal. You should cough or take a deep breath at least every hour or two to prevent lung complications. You should not engage in any strenuous physical activity until released by your physician. The usual rule is "if it hurts, don' t do it." Return if you develop any of the following: (1) Fever or chills. (2) Persistent cough, coughing up blood, or shortness of breath. (3) Increasing pain. (4) Weakness, lightheadedness, or fainting. Splint Pending Casting Your injury can't be casted until the swelling has subsided. Therefore, a temporary splint has been placed to protect the injury. Full use of an injured area is not possible in a splint. You should follow the doctor's instructions concerning rest, ice, and elevation of the injury. Never do anything which causes pain under the splint. Keep the splint on ALL THE TIME until you return for casting. If there is unexpected severe pain, or numbness, discoloration, or swelling beyond the splint, you should return at once. ICE & ELEVATION: Apply ice packs frequently against the painful area. Many different schedules are recommended, such as "20 minutes on, 20 minutes off" or "one hour ice, two hours rest." If you need to work, you may need to go longer between ice treatments. You should plan to have the area ice packed AT LEAST one- fourth of the time. The ice should be applied over the wrap, tape, or splint, or over a layer of cloth -- not directly against the skin. Some ice bags have a built-in cloth and can be put directly on the skin. Your injured part should be elevated as much as possible over the next 48 hours. Try to keep the injury above the level of the heart. Avoid use of the injured area. Elevation and rest will decrease the swelling. USE OF [id number] IBUPROFEN: Ibuprofen (Advil, Nuprin, Medipren, Motrin IB) is a medication for fever and pain control. In addition, it has anti- inflammatory effects which may be beneficial, especially in the treatment of injuries. It's best to take ibuprofen with food. Persons with ulcer disease or allergy to aspirin should notify their physician of this before taking ibuprofen. Ibuprofen can be given every four to six hours, for a total of four doses daily. Age Pain or fever dose Antiinflammatory dose 6-8 yr 200 mg (1 tab) 200 mg (1 tab) 9-11 yr 200 mg (1 tab) 200-400 mg (1-2 tab) 11-14 yr 200-400 mg (1-2 tab) 400 mg (2 tab) 15-adult 400 mg (2 tab) 600 mg (3 tab) ORAL NARCOTIC MEDICATION: You have been given a prescription for pain control. This medication is a narcotic. It's best taken with food, as nausea can result if taken on an empty stomach. Don't operate machinery or drive within six hours of taking this medication. Do not combine this medicine with alcohol, or with any medication which can cause sedation (such as cold tablets or sleeping pills) unless you get permission from the physician. Narcotics tend to cause constipation. If possible, drink plenty of fluids and eat a diet high in fiber and fruits. Please be aware that prescription narcotics also have the potential for abuse. People become addicted to these medications because of the general sense of wellbeing that they induce. This feeling along with a significant reduction in tension, anxiety, and aggression provides a stimulating seductive quality to these drugs. Once your pain is under control, we encourage you to discard your unused narcotics. FOLLOW-UP CARE: If you have been referred to a physician for follow-up care, call the physician s office for an appointment as you were instructed or within the next two days. If you experience worsening or a significant change in your symptoms, notify the physician immediately or return to the Emergency Department at any time for re-evaluation. Referrals: SANTINO SIMS MD [Primary Care Provider] - Follow up as needed BARTOLO GRAY MD [ACTIVE STAFF] - Follow up as needed
[2017-08-01] MEDS ORDERED: ACETAMINOPHEN 325 MG TABLET PO ONE (19:49)
--- NOTE | 2017-08-01 20:52 | RADIOLOGY REPORT (SQ) ---
EXAM DESCRIPTION: FOOT LEFT COMPLETE COMPLETED DATE/TIME: 08/01/2017 7:45 pm REASON FOR STUDY: fall right rib pain left ankle COMPARISON: None. NUMBER OF VIEWS: Three views. TECHNIQUE: AP, lateral and oblique radiographic images acquired of the left foot. LIMITATIONS: None. FINDINGS: MINERALIZATION: Normal. BONES: Nondisplaced proximal 5th metatarsal tuberosity fracture. JOINTS: No effusions. SOFT TISSUES: No soft tissue swelling. No foreign body. OTHER: No other significant finding. IMPRESSION: Nondisplaced proximal 5th metatarsal tuberosity fracture. TECHNICAL DOCUMENTATION: JOB ID: [id number] [place]-72 2010 [employer]- All Rights Reserved Reading location - IP/workstation name: [email or web address]
--- NOTE | 2017-08-01 20:54 | RADIOLOGY REPORT (SQ) ---
EXAM DESCRIPTION: RIBS RIGHT W/PA CHEST COMPLETED DATE/TIME: 08/01/2017 7:45 pm REASON FOR STUDY: fall right rib pain left ankle COMPARISON: None. TECHNIQUE: Frontal view of the chest and additional views of the right ribs acquired. NUMBER OF VIEWS: 3 LIMITATIONS: None. FINDINGS: FRONTAL CXR: No pneumothorax. No pleural effusion. No atelectasis or infiltrates. RIBS: No displaced rib fractures. No lytic or blastic bony lesions. OTHER: No other significant finding. IMPRESSION: NO PNEUMOTHORAX. NO DISPLACED RIB FRACTURES. COMMENT: SITE OF TRAUMA/COMPLAINT MARKED/STAMP COMPLETED: No TECHNICAL DOCUMENTATION: JOB ID: [id number] [place]-72 2010 [employer]- All Rights Reserved Reading location - IP/workstation name: [email or web address]
[2017-08-01] MEDS ORDERED: HYDROCODONE/ACETAMINOPHEN 5-325 MG (6 TAB/ER DISP) PO PRN (21:09)
[2017-08-01 21:46] VITALS: BP 150/72
== END 2017-08-01 21:46 | disposition home or self-care (01) ==
LOC: ER 18:45
PROC: 2W3TX1Z Immobilization of Left Foot using Splint (ICD-10-PCS; principal; 2017-08-01)
DX: S92.355A Nondisplaced fracture of fifth metatarsal bone, left foot, initial encounter for closed fracture (principal); S20.211A Contusion of right front wall of thorax, initial encounter; W18.30XA Fall on same level, unspecified, initial encounter; I48.91 Unspecified atrial fibrillation; E78.00 Pure hypercholesterolemia, unspecified; I10 Essential (primary) hypertension; I25.2 Old myocardial infarction
CPT/HCPCS: 99283; 73630; 71101; 29515; A9270 ×2

== ENCOUNTER 2017-11-11 17:36 | Inpatient (IN) | payer MEDICARE, MEDICAID ==
[2017-11-11] MEDS ORDERED: ASPIRIN 81 MG TABLET, CHEWABLE PO ONE (18:20)
[2017-11-11] MEDS ORDERED: DILTIAZEM HCL/D5W 125 MG/125 ML RTUINJ IV PRN (18:31)
[2017-11-11] MEDS ORDERED: DILTIAZEM HCL INJ 25 MG/5 ML VIAL IV ONE (18:31)
[2017-11-11] MEDS ORDERED: NORMAL SALINE 500 ML IV ONE ×2 (19:01→19:10)
--- NOTE | 2017-11-11 19:08 | RADIOLOGY REPORT (SQ) ---
EXAM DESCRIPTION: CHEST SINGLE VIEW COMPLETED DATE/TIME: 11/11/2017 7:01 pm REASON FOR STUDY: chest pain COMPARISON: 03/28/2016 EXAM PARAMETERS: NUMBER OF VIEWS: One view. TECHNIQUE: Single frontal radiographic view of the chest acquired. RADIATION DOSE: NA LIMITATIONS: None. FINDINGS: LUNGS AND PLEURA: Slight haziness is suggested in the left base. MEDIASTINUM AND HILAR STRUCTURES: No masses. Contour normal. HEART AND VASCULAR STRUCTURES: Heart normal in size. Normal vasculature. BONES: No acute findings. HARDWARE: None in the chest. OTHER: No other significant finding. IMPRESSION: Cannot exclude limited left lower lobe pneumonia. TECHNICAL DOCUMENTATION: JOB ID: [id number] [employer]- All Rights Reserved Reading location - IP/workstation name: [email or web address]
--- NOTE | 2017-11-11 19:26 | EKG REPORT ---
SEVERITY:- ABNORMAL ECG - ATRIAL FLUTTER, A-RATE 330 LVH WITH SECONDARY REPOLARIZATION ABNORMALITY : Confirmed by: Gian Staples MD 11-Nov-2017 19:25:19
[2017-11-11 19:36] LABS: ABSOLUTE BASOPHILS # (AUTO) 0.1 10^3/uL (0.0-0.2); ABSOLUTE EOSINOPHILS # (AUTO) 0.1 10^3/uL (0.0-0.6); ABSOLUTE LYMPHOCYTES (AUTO) 2.1 10^3/uL (0.5-4.7); ABSOLUTE MONOCYTES (AUTO) 1.2 10^3/uL (0.1-1.4); ABSOLUTE NEUT (AUTO) 6.2 10^3/uL (1.7-8.2); BASOPHILS % (AUTO) 0.6 % (0-2); EOSINOPHILS % (AUTO) 1.4 % (0-6); HEMATOCRIT 40.1 % (36.0-47.0); HEMOGLOBIN 13.6 g/dL (12.0-15.5); LYMPHOCYTES % (AUTO) 21.6 % (13-45); MEAN CORPUSCULAR HEMOGLOBIN 31.4 pg (27.0-33.4); MEAN CORPUSCULAR HGB CONC 33.8 g/dL (32.0-36.0); MEAN CORPUSCULAR VOLUME 93 fl (80-97); MONOCYTES % (AUTO) 12.7 % (3-13); PLATELET COUNT 314 10^3/uL (150-450); RED BLOOD COUNT 4.33 10^6/uL (3.72-5.28); RED CELL DISTRIBUTION WIDTH 13.8 % (11.5-14.0); SEGMENTED NEUTROPHILS % (AUTO) 63.7 % (42-78); TOTAL CELLS COUNTED % (AUTO) 100 %; WHITE BLOOD COUNT 9.8 10^3/uL (4.0-10.5)
[2017-11-11 20:10] LABS: ALANINE AMINOTRANSFERASE 14 U/L (9-52); ALBUMIN 4.1 g/dL (3.5-5.0); ALKALINE PHOSPHATASE 38 U/L (38-126); ANION GAP 10 (5-19); ASPARTATE AMINO TRANSFERASE 28 U/L (14-36); BILIRUBIN,DIRECT 0.3 mg/dL (0.0-0.4); BILIRUBIN,TOTAL 0.5 mg/dL (0.2-1.3); BLOOD UREA NITROGEN 21 mg/dL (7-20); CALCIUM 9.9 mg/dL (8.4-10.2); CARBON DIOXIDE 25 mmol/L (22-30); CHLORIDE 108 mmol/L (98-107); CREATINE KINASE 35 U/L (30-135); GLUCOSE 83 mg/dL (75-110); POTASSIUM 3.7 mmol/L (3.6-5.0); SODIUM 143.3 mmol/L (137-145); TOTAL PROTEIN 7.8 g/dL (6.3-8.2)
[2017-11-11 20:20] LABS: CREATINE KINASE MB 0.42 ng/mL (<4.55)
[2017-11-11 20:21] LABS: TROPONIN I < 0.012 ng/mL
[2017-11-11 20:24] LABS: FREE T3 3.17 pg/mL (2.77-5.27); FREE T4 (FREE THYROXINE) 1.23 ng/dL (0.78-2.19)
[2017-11-11] MEDS ORDERED: DIAZEPAM 5 MG TABLET PO ONE (20:27)
[2017-11-11] MEDS ORDERED: LATANOPROST 0.005% OPH SOLN 2.5 ML OU ONE (20:30)
[2017-11-11] MEDS ORDERED: ACETAMINOPHEN 325 MG TABLET PO ONE (23:18)
--- NOTE | 2017-11-11 23:52 | ER Document Report ---
ED General - General Chief Complaint: Chest Pain Stated Complaint: CHEST PAIN Time Seen by Provider: 11/11/17 18:20 Mode of Arrival: Ambulatory Information source: Patient Notes: This is a 76-year-old female with a history of coronary artery disease (stents in the past), paroxysmal atrial fibrillation (has been out of A. fib for the past 8 months), presents to the emergency room with palpitations and some chest discomfort. Patient states that it started approximately 4:15 pM today. Patient denied any chest pain at the time of my evaluation, her heart rate was however in the range of 140-150 and she was in atrial fibrillation. TRAVEL OUTSIDE OF THE [place] IN LAST 30 DAYS: No - HPI Onset: Just prior to arrival Onset/Duration: Sudden Quality of pain: Dull Severity: Mild Pain Level: 1 Associated symptoms: Chest pain. denies: Fever, Shortness of breath Exacerbated by: Denies Relieved by: Denies Similar symptoms previously: Yes Recently seen / treated by doctor: No - Related Data Allergies/Adverse Reactions: No Known Allergies Allergy (Verified 08/01/17 18:52) Past Medical History - General Information source: Patient - Social History Smoking Status: Never Smoker Cigarette use (# per day): No Chew tobacco use (# tins/day): No Frequency of alcohol use: None Drug Abuse: None Lives with: Family Family History: CAD, CVA, Hyperlipidemia, Hypertension, Malignancy Patient has suicidal ideation: No Patient has homicidal ideation: No - Past Medical History Cardiac Medical History: Reports: Hx Atrial Fibrillation, Hx Coronary Artery Disease, Hx Heart Attack - 4 YRS AGO, 5X STENTS PLACED, Hx Hypercholesterolemia , Hx Hypertension - ON MEDS Pulmonary Medical History: Reports: Hx Pneumonia - H/O A WHILE AGO Denies: Hx Asthma, Hx Bronchitis, Hx COPD Neurological Medical History: Reports: Hx Cerebrovascular Accident. Denies: Hx Seizures Renal/ Medical History: Reports: Hx Ovarian Cysts. Denies: Hx Peritoneal Dialysis GI Medical History: Reports: Hx Gastroesophageal Reflux Disease Musculoskeletal Medical History: Reports Hx Arthritis - BACK, SHOULDERS, HIPS, LEGS, Reports Hx Musculoskeletal Trauma Psychiatric Medical History: Denies: Hx Depression Traumatic Medical History: Reports: Hx Spine Fracture Past Surgical History: Reports: Hx Cardiac Catheterization, Hx Coronary Stent - 5 stents and 4 vessels. Last stent was over 12 years ago., Hx Gynecologic Surgery - Ovarian cyst surgery, Hx Hysterectomy, Hx Orthopedic Surgery - Immunizations Immunizations up to date: No Hx Diphtheria, Pertussis, Tetanus Vaccination: No Hx Pneumococcal Vaccination: 03/10/09 Review of Systems - Review of Systems Constitutional: denies: Chills, Fever EENT: No symptoms reported Cardiovascular: See HPI, Chest pain, Palpitations, Heart racing Respiratory: No symptoms reported. denies: Hemoptysis, Short of breath, Wheezing Gastrointestinal: denies: Abdomen distended, Abdominal pain, Vomiting Genitourinary: No symptoms reported Female Genitourinary: No symptoms reported Musculoskeletal: No symptoms reported Skin: No symptoms reported Hematologic/Lymphatic: No symptoms reported Neurological/Psychological: No symptoms reported Physical Exam - Vital signs Vitals: Resp Pulse Ox 24 H 95 11/11/17 17:54 11/11/17 17:54 Notes: Physical exam: GENERAL: 76-year-old female, alert and oriented 3, no acute distress. At this time, she denies any chest pain. HEAD: Atraumatic, normocephalic. EYES: Pupils equal round and reactive to light, extraocular movements intact, sclera anicteric, conjunctiva are normal. ENT: TMs normal, nares patent, oropharynx clear without exudates. Moist mucous membranes. NECK: Normal range of motion, supple without obvious mass or JVD. LUNGS: Breath sounds clear to auscultation bilaterally and equal. No wheezes rales or rhonchi. HEART: Tachycardia with an irregularly irregular rhythm. No obvious murmurs. ABDOMEN: Soft, normoactive bowel sounds. No tenderness to palpation. No guarding, no rebound. No masses appreciated. EXTREMITIES: Normal range of motion, no pitting or edema. No clubbing or cyanosis. NEUROLOGICAL: Cranial nerves II through XII grossly intact. Normal speech, moving all extremities. PSYCH: Normal mood, normal affect. SKIN: Warm, Dry, normal turgor, no rashes or lesions noted. Course - Re-evaluation Re-evalutation: 11/11/17 23:53 The patient was treated with IV Cardizem and her rate definitely improved. Currently, her rate was 8290 but she remains in A. fib. She does not have any chest pain and states she feels "washed out". She can tell that she still in atrial fibrillation. Her first troponin was completely negative and the second troponin is 0.43 (which still is in the negative territory) but higher than the previous. She may have a little demand given her tachycardia on presentation. The plan will be to admit her and continue cardiac enzymes. She was given this evenings oral dose of sotalol. There was a question of possible pneumonia on the chest x-ray but the patient has no fever, no white count, no respiratory symptoms: No clinical findings consistent with pneumonia. - Vital Signs Vital signs: Temp Pulse Resp BP Pulse Ox 98.3 F 18 106/74 94 11/11/17 17:55 11/12/17 01:52 11/12/17 01:52 11/12/17 01:52 - Laboratory Result Diagrams: 11/11/17 18:47 11/11/17 18:47 Laboratory results interpreted by me: 11/11/17 18:47 Chloride 108 H BUN 21 H Est GFR ( Amer) 58 L Est GFR (Non-Af Amer) 48 L - Diagnostic Test Radiology reviewed: Image reviewed, Reports reviewed - Chest x-ray shows possible atelectasis in the left lower lobe. The radiology report states that "they cannot rule out a pneumonia". The patient has not had any fever or cough. She was recently treated for a diarrheal illness and her symptoms improved with antibiotics. - EKG Interpretation by Me Rate: Tachycardia - EKG shows atrial fibrillation with a ventricular rate of 137 , left axis deviation, poor R-wave progression, no acute ST-T wave changes Rhythm: A.Fib Critical Care Note - Critical Care Note Total time excluding time spent on procedures (mins): 60 Discharge - Discharge Clinical Impression: A. fib with RVR Condition: Stable Disposition: ADMITTED INPATIENT Admitting Provider: Hospitalist - Dr Fernández Unit Admitted: Telemetry
[2017-11-12] MEDS ORDERED: PROMETHAZINE HCL INJ 25 MG/1 ML VIAL IV PRN (04:00)
[2017-11-12] MEDS ORDERED: MAG HYDROX/AL HYDROX/SIMETH SUSP 30 ML UDCUP PO PRN (04:00)
--- NOTE | 2017-11-12 04:28 | PDOC H&P ---
History of Present Illness Admission Date/PCP: 11/12/17 00:11 SANTINO SIMS MD Patient complains of: Palpitations History of Present Illness: ANA TREJO is a 76 year old female with history of paroxysmal atrial fibrillation on Eliquis.Patient comes to the emergency department as she was watching TV at 4 PM and started with new onset palpitations, heart rate was 107 blood pressure was normal. She decided to check it later as her symptoms did not improved and she noticed that her diastolic BP was 115 she does not remember the systolic and her heart rate was 145, her symptoms were associated with shortness of breath and mild chest tightness, she feels weak. Denies diaphoresis, nausea, vomiting, fever, chills, has mild cough once in a while, denies wheezing, sputum. Tells me that she has been having very bad diarrhea for the last 3 weeks and she has been on ciprofloxacin which last dose was a couple of days ago, she has been told that she has possible diverticulitis. EKG shows atrial fibrillation at 137 bpm. Given 15 mg of Cardizem and her blood pressure decreased to 92/50 but her heart rate was in the 90s, the patient is still says that she feels the irregular heartbeat. She remains on A. fib. First troponins negative and the second 1 0.43. Was given her evening dose of sotalol Her chest x-ray shows a possible left lower lobe infiltrate but the patient does not have any respiratory symptoms. Past Medical History Cardiac Medical History: Reports: Atrial Fibrillation, Coronary Artery Disease, Myocardial Infarction - 4 YRS AGO, 5X STENTS PLACED, Hyperlipidema, Hypertension - ON MEDS Pulmonary Medical History: Reports: Pneumonia - H/O A WHILE AGO Denies: Asthma, Bronchitis, Chronic Obstructive Pulmonary Disease (COPD) Neurological Medical History: Denies: Seizures GI Medical History: Reports: Gastroesophageal Reflux Disease Musculoskeltal Medical History: Reports: Arthritis - BACK, SHOULDERS, HIPS, LEGS Psychiatric Medical History: Denies: Depression Hematology: Denies: Anemia Past Surgical History Past Surgical History: Reports: Cardiac Catheterization, Coronary Stent - 5 stents and 4 vessels. Last stent was over 12 years ago., Hysterectomy, Orthopedic Surgery Social History Information Source: Patient Lives with: Family Smoking Status: Never Smoker Frequency of Alcohol Use: None Hx Recreational Drug Use: No Drugs: None Hx Prescription Drug Abuse: No Family History Family History: CAD, CVA, Hyperlipidemia, Hypertension, Malignancy Parental Family History Reviewed: No Children Family History Reviewed: NA Sibling(s) Family History Reviewed.: NA Medication/Allergy Home Medications: Apixaban [Eliquis 5 mg Tablet] 5 mg PO Q12 03/28/16 Calcium Carbonate/Vitamin D3 [Calcium 600 + Vit D 400 Tablet] 1 each PO BID Docusate Sodium [Colace 100 mg Capsule] 100 mg PO QHS 03/28/16 Latanoprost [Xalatan 0.005% Oph Soln 2.5 ml] 1 drop OU QHS 03/28/16 Omeprazole 40 mg PO DAILY 03/28/16 Sotalol HCl [Betapace 80 mg Tablet] 40 mg PO Q12 03/28/16 Spironolactone [Aldactone 25 mg Tablet] 25 mg PO DAILY 03/28/16 Ubidecarenone [Coq-10] 100 mg PO DAILY 03/28/16 Lisinopril [Prinivil 10 mg Tablet] 10 mg PO Q12 tablet 04/02/16 Allergies/Adverse Reactions: No Known Allergies Allergy (Verified 08/01/17 18:52) Review of Systems Review of Systems: As outlined in the HPI, others negative Physical Exam Vital Signs: Temp Pulse Resp BP Pulse Ox 98.3 F 18 106/74 94 11/11/17 17:55 11/12/17 01:52 11/12/17 01:52 11/12/17 01:52 Additional comments: General appearance: Well-developed, well-nourished, alert and cooperative, and appears to be in no acute distress Head: Normocephalic Eyes: PEERL, EOMI, vision is grossly intact. Ears: External auditory canal and tympanic membranes clear, hearing grossly intact. Nose: No nasal discharge. Throat: Oral cavity and pharynx normal. No inflammation, swelling, exudate or lesions. Neck: Neck supple, nontender without lymphadenopathy, masses or thyromegaly. Cardiac: Normal S1 and S2. No S3, S4 or murmurs. Rhythm is irregular. There is no peripheral edema, cyanosis or pallor. Extremities are warm and well perfused. Capillary refill is less than 2 seconds. No carotid bruits. Lungs: Clear to auscultation and percussion without rales, rhonchi, wheezing or diminished breath sounds. Not using accessory muscles. Abdomen: Positive bowel sounds. Soft. Nondistended, nontender. No guarding or rebound. No masses. No hepatosplenomegaly Extremities: No significant deformity or joint abnormality. No edema. Peripheral pulses intact. No varicosities. Neurological: Cranial nerves II through XII grossly intact. Strength and sensation symmetric and intact throughout. Reflexes 2+ throughout. Skin: Skin normal color, texture and turgor with no lesions or eruptions, warm and dry. Psychiatric: The mental examination revealed the patient was oriented to person , place, and time. The patient was able to demonstrate good judgment on recent , without hallucinations, abnormal affect or abnormal behaviors. Results Laboratory Results: 11/11/17 11/11/17 11/11/17 18:47 18:47 18:47 WBC 9.8 RBC 4.33 Hgb 13.6 Hct 40.1 MCV 93 MCH 31.4 MCHC 33.8 RDW 13.8 Plt Count 314 Seg Neutrophils % 63.7 Lymphocytes % 21.6 Monocytes % 12.7 Eosinophils % 1.4 Basophils % 0.6 Absolute Neutrophils 6.2 Absolute Lymphocytes 2.1 Absolute Monocytes 1.2 Absolute Eosinophils 0.1 Absolute Basophils 0.1 Sodium 143.3 Potassium 3.7 Chloride 108 H Carbon Dioxide 25 Anion Gap 10 BUN 21 H Creatinine 1.11 Est GFR (Non-Af Amer) 48 L Glucose 83 Calcium 9.9 Magnesium 1.9 Direct Bilirubin 0.3 AST 28 ALT 14 Alkaline Phosphatase 38 Creatine Kinase 35 CK-MB (CK-2) 0.42 Troponin I < 0.012 Total Protein 7.8 Albumin 4.1 TSH Free T4 Free T3 pg/mL 11/11/17 11/11/17 11/11/17 18:47 18:47 22:54 WBC RBC Hgb Hct MCV MCH MCHC RDW Plt Count Seg Neutrophils % Lymphocytes % Monocytes % Eosinophils % Basophils % Absolute Neutrophils Absolute Lymphocytes Absolute Monocytes Absolute Eosinophils Absolute Basophils Sodium Potassium Chloride Carbon Dioxide Anion Gap BUN Creatinine Est GFR (Non-Af Amer) Glucose Calcium Magnesium Direct Bilirubin AST ALT Alkaline Phosphatase Creatine Kinase CK-MB (CK-2) Troponin I 0.043 Total Protein Albumin TSH 2.66 Free T4 1.23 Free T3 pg/mL 3.17 Impressions: Chest X-Ray 11/11/17 18:20 IMPRESSION: Cannot exclude limited left lower lobe pneumonia. Assessment & Plan - Diagnosis (1) Atrial fibrillation with RVR Is this a current diagnosis for this admission?: Yes Plan: Paroxysmal atrial fibrillation: Patient comes with an episode of rapid atrial fibrillation up to 140s, she was transient on Cardizem drip but it was discontinued, after 50 mg of IV Cardizem her heart rate was controlled in the 90s but is still on atrial fibrillation. Wondering this can be a side effect of using sotalol and ciprofloxacin. We are going to keep the patient under telemetry monitoring, cycle cardiac enzymes total of [address] a consult for cardiology with Dr. Lord. Patient has history of cardioversion on March 2016 , out of A. fib for the last 8 months. Will continue with sotalol and Eliquis. Give IV Cardizem as needed. Patient has elevated troponin from 0.0 12-0.0 43, will send a total of 3, I feel this is demand ischemia (2) Coronary artery disease Qualifiers: Coronary Disease-Associated Artery/Lesion type: [place] artery [place] vs. transplanted heart: [place] heart Associated angina: without angina Qualified Code(s): I25.10 - Atherosclerotic heart disease of [place] coronary artery without angina pectoris Is this a current diagnosis for this admission?: Yes Plan: Continue with aspirin (3) Dyslipidemia Is this a current diagnosis for this admission?: Yes Plan: Continue with simvastatin (4) Hypertension Qualifiers: Hypertension type: unspecified secondary hypertension Qualified Code(s): I15.9 - Secondary hypertension, unspecified Is this a current diagnosis for this admission?: Yes Plan: If her blood pressure starts trending up, will resume her home antihypertensive medications. (5) Do not resuscitate Is this a current diagnosis for this admission?: Yes - Time Time Spent: 30 to 50 Minutes
[2017-11-12 06:46] LABS: ANION GAP 11 (5-19); BLOOD UREA NITROGEN 19 mg/dL (7-20); CALCIUM 10.1 mg/dL (8.4-10.2); CARBON DIOXIDE 26 mmol/L (22-30); CHLORIDE 106 mmol/L (98-107); GLUCOSE 87 mg/dL (75-110); POTASSIUM 3.9 mmol/L (3.6-5.0); SODIUM 142.5 mmol/L (137-145)
[2017-11-12] MEDS: ACETAMINOPHEN 325 MG TABLET PO PRN ×3 (10:05→21:58)
[2017-11-12] MEDS ORDERED: VITAMIN D3 PO SCH ×2 (10:15→22:00)
[2017-11-12] MEDS ORDERED: [UNRECOGNIZED DRUG - OTHER] PO SCH (10:15)
[2017-11-12] MEDS ORDERED: EAC PO SCH (10:15)
[2017-11-12] MEDS ORDERED: CALCIUM CARBONATE PO SCH ×2 (10:15→22:00)
[2017-11-12] MEDS: SPIRONOLACTONE 25 MG TABLET PO SCH (11:28)
[2017-11-12] MEDS: SOTALOL HCL 80 MG TABLET PO SCH ×2 (11:28→21:24)
[2017-11-12] MEDS: LISINOPRIL 10 MG TABLET PO SCH ×2 (11:28→21:24)
[2017-11-12] MEDS: APIXABAN 5 MG TABLET PO SCH ×2 (11:28→21:24)
--- NOTE | 2017-11-12 13:20 | Progress Note ---
Provider Note Provider Note: This patient was admitted by my colleague, Dr. Fernández early this am. I have seen and examined the patient myself. She states that she is feeling much better. She states that she knows that she is still in atrial fibrillation, but it doesn 't feel "bad" like before. She has been continued on her home rate limiting medications and Eliquis. Dr. Lord has been consulted. she has been continued on her home medications. Auscultations of the patient's heart sounds reveals an irregular rhythm. no murmurs or gallups. Lung sounds are without wheezes, rales , or rhonchi. No increased work of breathing. The patient is awake, alert, and oriented x 3. Cardiology has been consulted.
[2017-11-12] MEDS: LANSOPRAZOLE 30 MG TAB.RAP.DR PO SCH (14:29)
[2017-11-12] MEDS: TEMAZEPAM 7.5 MG CAPSULE PO PRN (21:23)
[2017-11-12] MEDS: CALCIUM CARBONATE 250 MG/VITAMIN D3 125 UNIT TABLET PO SCH (21:23)
[2017-11-12] MEDS: DOCUSATE SODIUM 100 MG CAPSULE PO SCH (21:25)
[2017-11-12] MEDS: LATANOPROST 0.005% OPH SOLN 2.5 ML OU SCH (21:33)
[2017-11-12] MEDS ORDERED: [UNRECOGNIZED DRUG - OTHER] PO SCH (22:00)
[2017-11-13 09:21] LABS: ABSOLUTE BASOPHILS # (AUTO) 0.1 10^3/uL (0.0-0.2); ABSOLUTE EOSINOPHILS # (AUTO) 0.1 10^3/uL (0.0-0.6); ABSOLUTE LYMPHOCYTES (AUTO) 2.1 10^3/uL (0.5-4.7); ABSOLUTE MONOCYTES (AUTO) 0.9 10^3/uL (0.1-1.4); ABSOLUTE NEUT (AUTO) 4.5 10^3/uL (1.7-8.2); BASOPHILS % (AUTO) 0.7 % (0-2); EOSINOPHILS % (AUTO) 1.9 % (0-6); HEMATOCRIT 40.1 % (36.0-47.0); HEMOGLOBIN 13.8 g/dL (12.0-15.5); LYMPHOCYTES % (AUTO) 26.8 % (13-45); MEAN CORPUSCULAR HEMOGLOBIN 31.6 pg (27.0-33.4); MEAN CORPUSCULAR HGB CONC 34.3 g/dL (32.0-36.0); MEAN CORPUSCULAR VOLUME 92 fl (80-97); MONOCYTES % (AUTO) 11.8 % (3-13); PLATELET COUNT 265 10^3/uL (150-450); RED BLOOD COUNT 4.36 10^6/uL (3.72-5.28); RED CELL DISTRIBUTION WIDTH 13.4 % (11.5-14.0); SEGMENTED NEUTROPHILS % (AUTO) 58.8 % (42-78); TOTAL CELLS COUNTED % (AUTO) 100 %; WHITE BLOOD COUNT 7.7 10^3/uL (4.0-10.5)
[2017-11-13] MEDS: LANSOPRAZOLE 30 MG TAB.RAP.DR PO SCH (09:28)
--- NOTE | 2017-11-13 09:44 | XCELERA REPORT ---
[address] [address] Transthoracic Echocardiogram Report Name: ANA TREJO Age: 76 yrs Gender: Female : 1940 Patient Status: Inpatient Patient Location: [address] [place], [place] [id number] Study Date: 11/12/2017 08:34 PM Height: 65 in Weight: 148 lb BSA: 1.7 m2 Procedure: A complete two-dimensional transthoracic echocardiogram was performed (2D, M-mode, spectral and color flow Doppler). The study was technically adequate with some images being suboptimal in quality. Reason For Study: A FIB Ordering Physician: CHRISTIE VIGIL Performed By: Orquidea Mckeon Interpretation Summary The left ventricular ejection fraction is normal. There is mild concentric left ventricular hypertrophy. The left ventricle is grossly normal size. LV diastolic function could not be adequately assessed due to atrial fibrilation. Wall motion cannot be accurately commented on, but no definite regional wall motion abnormalities noted. The right ventricle is grossly normal size. The right atrium is mildly dilated. The left atrium is mildly dilated. There is a trace amount of mitral regurgitation There is no mitral valve stenosis. No aortic regurgitation is present. There is no aortic valve stenosis There is a trace or physiologic amount of tricuspid regurgitation Tricuspid regurgitation jet envelope not well defined to measure RV systolic pressure accurately. The aortic root is not well visualized. The inferior vena cava appeared normal and decreased > 50% with respiration (RAP 5-10 mmHg) Minimal pericardial effusion. MMode/2D Measurements & Calculations RVDd: 2.2 cm LVIDd: 4.2 cm FS: 28.2 % IVSd: 0.99 cm LVIDs: 3.0 cm EDV(Teich): 79.0 ml LVPWd: 1.0 cm ESV(Teich): 35.6 ml EF(Teich): 54.9 % Doppler Measurements & Calculations MV E max purnima: MV P1/2t max purnima: Ao V2 max: LV V1 max P.6 cm/sec 110.4 cm/sec 92.9 cm/sec 2.2 mmHg MV A max purnima: MV P1/2t: 53.6 msec Ao max P.5 mmHgLV V1 max: 44.9 cm/sec MVA(P1/2t): 4.1 cm2 74.0 cm/sec MV E/A: 1.6 MV dec slope: 603.0 cm/sec2 MV dec time: 0.13 sec PA V2 max: TR max purnima: MV P1/2t-pr_phl: 127.6 cm/sec 228.0 cm/sec 53.6 msec PA max P.5 mmHgTR max P.8 mmHg Left Ventricle The left ventricle is grossly normal size. There is mild concentric left ventricular hypertrophy. The left ventricular ejection fraction is normal. LV diastolic function could not be adequately assessed due to atrial fibrilation. Wall motion cannot be accurately commented on, but no definite regional wall motion abnormalities noted. Right Ventricle The right ventricle is grossly normal size. There is normal right ventricular wall thickness. The right ventricular systolic function is normal. Atria The right atrium is mildly dilated. The left atrium is mildly dilated. Interarterial septum not well visualized and not well dopplered. Cannot comment on ASD/PFO presence. Mitral Valve The mitral valve is grossly normal. There is no mitral valve stenosis. There is a trace amount of mitral regurgitation. Aortic Valve The aortic valve is grossly normal. There is no aortic valve stenosis. No aortic regurgitation is present. Tricuspid Valve The tricuspid valve is not well visualized secondary to technical limitations. There is no tricuspid stenosis. There is a trace or physiologic amount of tricuspid regurgitation. Tricuspid regurgitation jet envelope not well defined to measure RV systolic pressure accurately. Pulmonic Valve The pulmonic valve is not well visualized. Great Vessels The aortic root is not well visualized. The inferior vena cava appeared normal and decreased > 50% with respiration (RAP 5-10 mmHg). Effusions Minimal pericardial effusion. : CHRISTIE VIGIL > Christie Vigil
[2017-11-13] MEDS: SOTALOL HCL 80 MG TABLET PO SCH (12:10)
[2017-11-13] MEDS ORDERED: DILTIAZEM HCL 120 MG CAP.SR.24H PO ONE (12:27)
[2017-11-13] MEDS: APIXABAN 5 MG TABLET PO SCH ×2 (12:30→21:31)
[2017-11-13] MEDS: CALCIUM CARBONATE 250 MG/VITAMIN D3 125 UNIT TABLET PO SCH ×2 (12:30→21:33)
[2017-11-13] MEDS: ACETAMINOPHEN 325 MG TABLET PO PRN ×2 (12:30→21:35)
[2017-11-13] MEDS: LISINOPRIL 10 MG TABLET PO SCH ×2 (12:30→21:32)
[2017-11-13] MEDS: SPIRONOLACTONE 25 MG TABLET PO SCH (12:30)
[2017-11-13] MEDS: DILTIAZEM HCL 120 MG CAP.SR.24H PO SCH ×2 (13:11→21:31)
--- NOTE | 2017-11-13 14:07 | PDOC PROGRESS REPORT ---
Subjective Progress Note for:: 11/13/17 Subjective:: The patient is resting quietly. No new complaints of chest pain. Reason For Visit: RAPID ATRIAL FIBRILLATION Physical Exam Vital Signs: Temp Pulse Resp BP Pulse Ox 98.1 F 126 H 16 149/85 H 98 11/13/17 12:25 11/13/17 12:25 11/13/17 12:25 11/13/17 12:25 11/13/17 12:25 Intake & Output 11/12/17 11/13/17 11/14/17 06:59 06:59 06:59 Intake Total 887 Balance 887 General appearance: PRESENT: no acute distress, cooperative Cardiovascular exam: PRESENT: RRR, other - No lateral PMI. No thrills.. ABSENT : gallop, rubs, systolic murmur GI/Abdominal exam: PRESENT: normal bowel sounds, soft. ABSENT: distended, guarding, mass, organolmegaly, tenderness Extremities exam: ABSENT: joint swelling, pedal edema, tenderness Musculoskeletal exam: PRESENT: normal inspection. ABSENT: deformity, dislocation, tenderness Neurological exam: PRESENT: alert, awake, oriented to person, oriented to place , oriented to time, oriented to situation, CN II-XII grossly intact. ABSENT: motor sensory deficit Psychiatric exam: PRESENT: appropriate affect, normal mood Skin exam: PRESENT: dry, intact, warm Results Laboratory Results: 11/13/17 05:14 11/12/17 05:23 11/13/17 11/13/17 05:14 05:14 WBC 7.7 RBC 4.36 Hgb 13.8 Hct 40.1 MCV 92 MCH 31.6 MCHC 34.3 RDW 13.4 Plt Count 265 Seg Neutrophils % 58.8 Lymphocytes % 26.8 Monocytes % 11.8 Eosinophils % 1.9 Basophils % 0.7 Absolute Neutrophils 4.5 Absolute Lymphocytes 2.1 Absolute Monocytes 0.9 Absolute Eosinophils 0.1 Absolute Basophils 0.1 Magnesium 1.6 11/12/17 11/12/17 11/12/17 05:23 11:11 17:19 Troponin I 0.040 0.020 0.018 Impressions: Chest X-Ray 11/11/17 18:20 IMPRESSION: Cannot exclude limited left lower lobe pneumonia. Assessment & Plan - Diagnosis (1) Atrial fibrillation with RVR Is this a current diagnosis for this admission?: Yes Plan: Rate continues to be high. Await results of stress. (2) Coronary artery disease Qualifiers: Coronary Disease-Associated Artery/Lesion type: [place] artery [place] vs. transplanted heart: [place] heart Associated angina: angina presence unspecified Qualified Code(s): I25.10 - Atherosclerotic heart disease of [place] coronary artery without angina pectoris Is this a current diagnosis for this admission?: Yes (3) Dyslipidemia Is this a current diagnosis for this admission?: Yes (4) Orthostatic hypotension Is this a current diagnosis for this admission?: Yes Plan: Resolved. (5) Abnormal EKG Is this a current diagnosis for this admission?: Yes Plan: Stress test is pending. - Time Time Spent with patient: 25-34 minutes Medications reviewed and adjusted accordingly: Yes
[2017-11-13] MEDS ORDERED: REGADENOSON INJ 0.4 MG/5 ML DISP.SYRIN IV ONE (15:11)
--- NOTE | 2017-11-13 19:33 | DRAGON STRESS TEST REPORT ---
INTRAVENOUS LEXISCAN CARDIOLITE STRESS TEST USING SINGLE PHOTON EMMISION COMPUTERIZED TOMOGRAPHIC. DATE OF PROCEDURE: November 13, 2017, INDICATION : Chest pain CARDIAC RISK FACTORS: Atrial fibrillation, abnormal EKG RESTING EKG: Atrial fibrillation, RVR, nonprogression of R-wave V1 to V3 STRESS EKG: No significant ST segment changes noted with LexiScan bolus REASON FOR TERMINATION: Protocol. PROCEDURE REPORT: Baseline heart rate 136 beats per minute with blood pressure of 133/99. Patient had no significant complaints. Patient was bolused with Lexiscan 0.4 mg intravenously followed by saline bolus. Heart rate at 2 minutes post bolus 144 with a blood pressure of 117/84. 3 minutes post bolus heart rate 142 with blood pressure of 112/83. No significant EKG changes were noted. Patient had no significant complaints during the procedure or postprocedure. CONCLUSIONS: Normal EKG and hemodynamic response to IV LexiScan. NUCLEAR DATA: At rest the patient was given 9.71 millicuries of technetium 99 sestamibi injected intravenously. As per protocol rest gated SPECT images were obtained. On day of stress test, the patient was given intravenous LexiScan at a dose of 0.4 mg in 5 mL intravenously, followed by flush with normal saline. Subsequently the stress dose of 30.9 millicuries of technetium 99 sestamibi was injected intravenously. As per protocol stress gated images were obtained. NUCLEAR INTERPRETATION: Both raw and processed data were used for interpretation. Visual, qualitative, computer-generated quantitative data was used. There was good myocardial uptake of technetium compound. Motion artifact and soft tissue attenuations were noted. Increased visceral uptake was noted. No definitive areas of transient perfusion defect noted, No definitive areas of fixed perfusion defect or scars noted. EKG gated imaging showed LV EF at 62 %, rest and stress gated EF similar visually. T. I D. ratio was 0.91. Lung heart ratio noted to be within normal limits 0.19. No significant extracardiac and abnormal radiotracer activities were noted. RV free wall uptake was noted to be WNL. IMPRESSION: Also refer to comments under nuclear interpretation. Also test results needs to be interpreted in the context of pretest probability. 1. No definitive areas of transient perfusion defect noted. 2. There is no definitive scintigraphic evidence of myocardial infarction/scar. 3. EKG gated imaging shows left ventricular ejection fraction of approx. 62 %. 4. Clinical correlation requested as worse disease and or balanced ischemia could be missed. In approximately 10% of the cases Lexiscan may not cause adequate vasodilatory stress. RECOMMENDATIONS: Aggressive risk factor modification and medical management. Further evaluation may be needed if continued symptoms or other high risk indicators are noted on clinical evaluation. Close cardiology follow-up is also recommended. Clinical correlation with echocardiogram derived ejection fraction. Inability to exercise by itself can lead to increased cardiovascular event risks. Consider cardiology consultation and or follow-up if clinically indicated. I am available for cardiology evaluation and consultation if requested by the retail marketing specialist, unless patient already has a patents examiner. Dr. Phani Lord. MRCP Board certified in cardiology and sleep medicine. Board certified in nuclear cardiology, adult echocardiography. EVELYN
[2017-11-13] MEDS: DOCUSATE SODIUM 100 MG CAPSULE PO SCH (21:32)
[2017-11-13] MEDS: TEMAZEPAM 7.5 MG CAPSULE PO PRN (21:33)
[2017-11-13] MEDS: LATANOPROST 0.005% OPH SOLN 2.5 ML OU SCH (21:34)
--- NOTE | 2017-11-13 23:01 | PDOC CONSULTATION ---
Consultation Consult Date: 11/12/17 Attending physician:: GIULIA YUSUF Consult reason:: Atrial fibrillation with rapid ventricular response History of Present Illness Admission Date/PCP: 11/12/17 00:11 SANTINO SIMS MD Patient complains of: Shortness of breath, fatigue and tiredness History of Present Illness: ANA TREJO is a 76 year old female with history of paroxysmal atrial fibrillation on Eliquis.Patient comes to the emergency department as she was watching TV at 4 PM and started with new onset palpitations, heart rate was 107 blood pressure was normal. She decided to check it later as her symptoms did not improved and she noticed that her diastolic BP was 115 she does not remember the systolic and her heart rate was 145, her symptoms were associated with shortness of breath and mild chest tightness, she feels weak. Denies diaphoresis, nausea, vomiting, fever, chills, has mild cough once in a while, denies wheezing, sputum. Tells me that she has been having very bad diarrhea for the last 3 weeks and she has been on ciprofloxacin which last dose was a couple of days ago, she has been told that she has possible diverticulitis. EKG shows atrial fibrillation at 137 bpm. Given 15 mg of Cardizem and her blood pressure decreased to 92/50 but her heart rate was in the 90s, the patient is still says that she feels the irregular heartbeat. She remains on A. fib. First troponins negative and the second 1 0.43. Was given her evening dose of sotalol Her chest x-ray shows a possible left lower lobe infiltrate but the patient does not have any respiratory symptoms. This history obtained by the hospitalist was reviewed with the patient. Patient could not add much to the history otherwise. Past Medical History Cardiac Medical History: Reports: Atrial Fibrillation, Coronary Artery Disease, Myocardial Infarction - 4 YRS AGO, 5X STENTS PLACED, Hyperlipidema, Hypertension - ON MEDS Pulmonary Medical History: Reports: Pneumonia - H/O A WHILE AGO Denies: Asthma, Bronchitis, Chronic Obstructive Pulmonary Disease (COPD) Neurological Medical History: Denies: Seizures GI Medical History: Reports: Gastroesophageal Reflux Disease Musculoskeltal Medical History: Reports: Arthritis - BACK, SHOULDERS, HIPS, LEGS Psychiatric Medical History: Denies: Depression Hematology: Denies: Anemia Past Surgical History Past Surgical History: Reports: Cardiac Catheterization, Coronary Stent - 5 stents and 4 vessels. Last stent was over 12 years ago., Hysterectomy, Orthopedic Surgery Social History Lives with: Family Smoking Status: Never Smoker Frequency of Alcohol Use: None Hx Recreational Drug Use: No Drugs: None Hx Prescription Drug Abuse: No - Advance Directive Resuscitation Status: Do Not Resuscitate Family History Family History: CAD, CVA, Hyperlipidemia, Hypertension, Malignancy Parental Family History Reviewed: Yes Children Family History Reviewed: Yes Sibling(s) Family History Reviewed.: Yes Medication/Allergy Home Medications: Apixaban [Eliquis 5 mg Tablet] 5 mg PO Q12 03/28/16 Docusate Sodium [Colace 100 mg Capsule] 100 mg PO QHS 03/28/16 Latanoprost [Xalatan 0.005% Oph Soln 2.5 ml] 1 drop OU QHS 03/28/16 Omeprazole 40 mg PO DAILY 03/28/16 Spironolactone [Aldactone 25 mg Tablet] 25 mg PO DAILY 03/28/16 Ubidecarenone [Coq-10] 100 mg PO DAILY 03/28/16 Lisinopril [Prinivil 10 mg Tablet] 10 mg PO Q12 tablet 04/02/16 Calcium Carbonate/Vitamin D3 [Calcium 600-Vit D3 800 Tablet] 1 each PO Q12 11/12 Diazepam [Valium 5 mg Tablet] 5 mg PO QHS 11/12/17 Amiodarone HCl [Cordarone 200 mg Tablet] 400 mg PO Q12 #84 tablet 11/16/17 Diltiazem HCl [Cardizem Cd 120 mg Capsule] 120 mg PO Q12 #30 cap.sr.24h Metoprolol Succinate 25 mg PO DAILY #30 tab.er.24h 11/16/17 Allergies/Adverse Reactions: No Known Allergies Allergy (Verified 08/01/17 18:52) Physical Exam Vital Signs: Temp Pulse Resp BP Pulse Ox 97.8 F 111 H 20 132/86 H 99 11/12/17 16:11 11/12/17 16:11 11/12/17 16:11 11/12/17 16:11 11/12/17 16:11 Intake & Output 11/11/17 11/12/17 11/13/17 06:59 06:59 06:59 Intake Total 887 Balance 887 Exam: GENERAL: well-nourished and in no acute distress. Alert and oriented x3 HEAD: Atraumatic, normocephalic. EYES: Pupils equal round and reactive to light, extraocular movements intact, sclera anicteric, conjunctiva are normal. ENT: TMs normal, nares patent, oropharynx clear without exudates. Moist mucous membranes. No oral ulcerations or bleeding gums noted NECK: supple without lymphadenopathy. Trachea is central. No cervical or axillary lymphadenopathy noted. Carotids are 2+, JVD WNL LUNGS: Respiration seems nonlabored, no significant accessory muscle action noted. Breath sounds clear to auscultation bilaterally and equal noted. No wheezes rales or rhonchi noted. No significant dullness noted on percussion. CHEST: Palpation of the chest wall shows no significant chest wall tenderness. 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 ABDOMEN: Soft, no significant tenderness appreciated, normoactive bowel sounds. No guarding, no rebound. No rigidity noted . No masses appreciated. EXTREMITIES: Pedal pulses are 1-2+, no calf tenderness noted. No clubbing or cyanosis. negative pedal edema noted NEUROLOGICAL: Focused neurological exam showed no significant neurologic deficit. Normal speech, no focal weakness appreciated. PSYCH: Normal mood, normal affect. Judgment and insight within normal limits. SKIN: No significant ecchymosis, skin is noted to be warm. MUSCULOSKELETAL EXAM: No significant acute joint swelling noted Results Laboratory Results: 11/12/17 05:23 11/12/17 05:23 Sodium 142.5 Potassium 3.9 Chloride 106 Carbon Dioxide 26 Anion Gap 11 BUN 19 Creatinine 0.88 Est GFR ( Amer) > 60 Est GFR (Non-Af Amer) > 60 Glucose 87 Calcium 10.1 11/12/17 11/12/17 11/12/17 05:23 11:11 17:19 Troponin I 0.040 0.020 0.018 EKG Comments: Atrial fibrillation with rapid ventricular response. ST-T wave changes are noted Impressions: Chest X-Ray 11/11/17 18:20 IMPRESSION: Cannot exclude limited left lower lobe pneumonia. Assessment & Plan - Diagnosis (1) Atrial fibrillation with RVR Is this a current diagnosis for this admission?: Yes (2) Coronary artery disease Qualifiers: Coronary Disease-Associated Artery/Lesion type: [place] artery [place] vs. transplanted heart: [place] heart Associated angina: angina presence unspecified Qualified Code(s): I25.10 - Atherosclerotic heart disease of [place] coronary artery without angina pectoris Is this a current diagnosis for this admission?: Yes (3) Dyslipidemia Is this a current diagnosis for this admission?: Yes (4) GERD (gastroesophageal reflux disease) Qualifiers: Esophagitis presence: esophagitis presence not specified Qualified Code(s) : K21.9 - Gastro-esophageal reflux disease without esophagitis Is this a current diagnosis for this admission?: Yes (5) Hypertension Qualifiers: Hypertension type: unspecified secondary hypertension Qualified Code(s): I15.9 - Secondary hypertension, unspecified Is this a current diagnosis for this admission?: Yes - Notes Notes: Atrial fibrillation with RVR. Recommend rate control and chronic anticoagulation. Atrial fibrillation with RVR: Recommend rate control and chronic anticoagulation. Rate control can be with beta-ann and Cardizem or combination thereof. Recommend stopping sotalol as this can paradoxically increased the heart rate response. Coronary artery disease: Patient does have significant EKG changes will consider a nuclear stress test. Dyslipidemia: Recommend high potency statin therapy. Gastroesophageal reflux disease: Continue proton pump inhibitor or other antacids. Hypertension: Recommend good control of blood pressure. BP goal 140/90 or less. CAD: To be evaluated with a 2D echo and nuclear stress test. For rate control will use Cardizem and beta blockers. It seems sotalol has not been effective although at a low dose, stop this and consider adding beta-ann for rate control. Further plans after review of 2D echo and nuclear stress test results. - Time Time Spent: 30 to 50 Minutes - CODE STATUS was discussed, patient remains full code. Surrogate decision-maker unchanged. Multiple medical problems were addressed. More than 50% of the time spent coordinating care, discussing management plans with involved caregivers. Management plans discussed with involved personnels. Medical decision making was of moderate to high complexity , patient's has multiple comorbidities. Medications reviewed and adjusted accordingly: Yes
--- NOTE | 2017-11-13 23:04 | PDOC PROGRESS REPORT ---
Subjective Progress Note for:: 11/13/17 Subjective:: Patient seems to be doing better with gradual improvement. Pt is denying any chest arm or neck discomfort. Patient denying any PND, orthopnea. Patient denied any sustained palpitations, dizziness, syncope, near syncope. Patient denying any fever chills. Patient denying any other significant discomfort. Patient is maintaining atrial fibrillation. Heart rate is somewhat on the high side. Review of systems: Rest review of systems negative. Medications: Medications have been reviewed. Reason For Visit: RAPID ATRIAL FIBRILLATION Physical Exam Vital Signs: Temp Pulse Resp BP Pulse Ox 98.0 F 58 L 16 128/85 H 98 11/13/17 19:44 11/13/17 19:44 11/13/17 19:44 11/13/17 19:44 11/13/17 19:44 Intake & Output 11/12/17 11/13/17 11/14/17 06:59 06:59 06:59 Intake Total 887 580 Balance 887 580 Exam: GENERAL: well-nourished and in no acute distress. Alert and oriented x3 HEAD: Atraumatic, normocephalic. EYES: Pupils equal round and reactive to light, extraocular movements intact, sclera anicteric, conjunctiva are normal. ENT: TMs normal, nares patent, oropharynx clear without exudates. Moist mucous membranes. No oral ulcerations or bleeding gums noted NECK: supple without lymphadenopathy. Trachea is central. No cervical or axillary lymphadenopathy noted. Carotids are 2+, JVD WNL LUNGS: Respiration seems nonlabored, no significant accessory muscle action noted. Breath sounds clear to auscultation bilaterally and equal noted. No wheezes rales or rhonchi noted. No significant dullness noted on percussion. CHEST: Palpation of the chest wall shows no significant chest wall tenderness. 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 ABDOMEN: Soft, no significant tenderness appreciated, normoactive bowel sounds. No guarding, no rebound. No rigidity noted . No masses appreciated. EXTREMITIES: Pedal pulses are 1-2+, no calf tenderness noted. No clubbing or cyanosis. negative pedal edema noted NEUROLOGICAL: Focused neurological exam showed no significant neurologic deficit. Normal speech, no focal weakness appreciated. PSYCH: Normal mood, normal affect. Judgment and insight within normal limits. SKIN: No significant ecchymosis, skin is noted to be warm. MUSCULOSKELETAL EXAM: No significant acute joint swelling noted. Results Laboratory Results: 11/13/17 05:14 11/12/17 05:23 11/13/17 11/13/17 05:14 05:14 WBC 7.7 RBC 4.36 Hgb 13.8 Hct 40.1 MCV 92 MCH 31.6 MCHC 34.3 RDW 13.4 Plt Count 265 Seg Neutrophils % 58.8 Lymphocytes % 26.8 Monocytes % 11.8 Eosinophils % 1.9 Basophils % 0.7 Absolute Neutrophils 4.5 Absolute Lymphocytes 2.1 Absolute Monocytes 0.9 Absolute Eosinophils 0.1 Absolute Basophils 0.1 Magnesium 1.6 11/12/17 11/12/17 11/12/17 05:23 11:11 17:19 Troponin I 0.040 0.020 0.018 EKG Comments: Shows atrial fibrillation with rapid ventricular response Impressions: Chest X-Ray 11/11/17 18:20 IMPRESSION: Cannot exclude limited left lower lobe pneumonia. Assessment & Plan - Diagnosis (1) Atrial fibrillation with RVR Is this a current diagnosis for this admission?: Yes (2) Coronary artery disease Qualifiers: Coronary Disease-Associated Artery/Lesion type: [place] artery [place] vs. transplanted heart: [place] heart Associated angina: angina presence unspecified Qualified Code(s): I25.10 - Atherosclerotic heart disease of [place] coronary artery without angina pectoris Is this a current diagnosis for this admission?: Yes (3) Dyslipidemia Is this a current diagnosis for this admission?: Yes (4) GERD (gastroesophageal reflux disease) Qualifiers: Esophagitis presence: esophagitis presence not specified Qualified Code(s) : K21.9 - Gastro-esophageal reflux disease without esophagitis Is this a current diagnosis for this admission?: Yes (5) Hypertension Qualifiers: Hypertension type: unspecified secondary hypertension Qualified Code(s): I15.9 - Secondary hypertension, unspecified Is this a current diagnosis for this admission?: Yes - Notes Notes: 2D echo shows normal LVEF. Nuclear stress test was negative for significant areas of ischemia. Have optimized medical therapy for better rate control. Have stopped sotalol. We will add beta-blockers to Cardizem for better control of heart rate and ventricular response. Atrial fibrillation with RVR: Recommend rate control and chronic anticoagulation. Rate control can be with beta-ann and Cardizem or combination thereof. Coronary artery disease: Patient does have significant EKG changes will consider a nuclear stress test. Dyslipidemia: Recommend high potency statin therapy. Gastroesophageal reflux disease: Continue proton pump inhibitor or other antacids. Hypertension: Recommend good control of blood pressure. BP goal 140/90 or less. CAD: Symptomatically stable. 2D echo shows normal LVEF, nuclear stress test negative for stress-induced ischemia. Recommend aggressive risk factor and medical management at this time - Time Time with patient: Greater than 35 minutes - More than 50% of the time spent coordinating care, discussing management plans with involved caregivers. Management plans discussed with involved personnels. Medical decision making was of moderate to high complexity, patient's has multiple comorbidities. Medications reviewed and adjusted accordingly: Yes
[2017-11-14] MEDS: LANSOPRAZOLE 30 MG TAB.RAP.DR PO SCH (05:17)
[2017-11-14] MEDS: LISINOPRIL 10 MG TABLET PO SCH ×2 (09:03→21:36)
[2017-11-14] MEDS: APIXABAN 5 MG TABLET PO SCH ×2 (09:04→21:37)
[2017-11-14] MEDS: DILTIAZEM HCL 120 MG CAP.SR.24H PO SCH ×2 (09:04→21:37)
[2017-11-14] MEDS: SPIRONOLACTONE 25 MG TABLET PO SCH (09:04)
[2017-11-14] MEDS: CALCIUM CARBONATE 250 MG/VITAMIN D3 125 UNIT TABLET PO SCH ×2 (09:04→21:37)
[2017-11-14] MEDS: ACETAMINOPHEN 325 MG TABLET PO PRN (09:06)
[2017-11-14] MEDS ORDERED: METOPROLOL SUCCINATE 25 MG TAB.SR.24H PO SCH (10:00)
[2017-11-14] MEDS: METOPROLOL SUCCINATE 25 MG TAB.SR.24H PO SCH ×2 (14:35→21:37)
--- NOTE | 2017-11-14 17:01 | PDOC PROGRESS REPORT ---
Subjective Progress Note for:: 11/14/17 Subjective:: The patient states that she is continuing to have palpitations. At the time that I was visiting the patient, she had not had high heart rates since mid-day yesterday, before the diltiazem was increased. However, shortly after I saw the patient nursing walked the patient and she had increased heart rate into the 150 's. I called Dr. Lord as pharmacy was unable to send the dose of metoprolol which he had wanted to start this morning. Dr. Lord said he would contact the pharmacy to addresse the dosing issue. Reason For Visit: RAPID ATRIAL FIBRILLATION Physical Exam Vital Signs: Temp Pulse Resp BP Pulse Ox 98.1 F 90 16 92/52 L 98 11/14/17 15:45 11/14/17 15:45 11/14/17 15:45 11/14/17 15:45 11/14/17 15:45 Intake & Output 11/13/17 11/14/17 11/15/17 06:59 06:59 06:59 Intake Total 887 580 Balance 887 580 Weight 69.1 kg General appearance: PRESENT: no acute distress, cooperative Respiratory exam: PRESENT: other - No increased work of breathing.. ABSENT: rales, rhonchi, wheezes Cardiovascular exam: PRESENT: irregular rhythm, other - No lateral PMI. No thrills.. ABSENT: gallop, rubs, systolic murmur GI/Abdominal exam: PRESENT: mass, normal bowel sounds, soft. ABSENT: distended , hernia, organolmegaly, tenderness Extremities exam: ABSENT: clubbing, pedal edema, tenderness Musculoskeletal exam: PRESENT: normal inspection. ABSENT: deformity, dislocation, tenderness Neurological exam: PRESENT: alert, awake, oriented to person, oriented to place , oriented to time, oriented to situation, CN II-XII grossly intact. ABSENT: motor sensory deficit Psychiatric exam: PRESENT: appropriate affect, normal mood Skin exam: PRESENT: dry, intact, warm Results Laboratory Results: 11/13/17 05:14 11/12/17 05:23 11/12/17 11/12/17 11/12/17 05:23 11:11 17:19 Troponin I 0.040 0.020 0.018 Impressions: Chest X-Ray 11/11/17 18:20 IMPRESSION: Cannot exclude limited left lower lobe pneumonia. Assessment & Plan - Diagnosis (1) Atrial fibrillation with RVR Is this a current diagnosis for this admission?: Yes Plan: Rate is in the 70-80's at rest, but increases to the 150's with excercise. Cardiology to address. (2) Coronary artery disease Qualifiers: Coronary Disease-Associated Artery/Lesion type: [place] artery [place] vs. transplanted heart: [place] heart Associated angina: angina presence unspecified Qualified Code(s): I25.10 - Atherosclerotic heart disease of [place] coronary artery without angina pectoris Is this a current diagnosis for this admission?: Yes Plan: Stress test was negative for ischemia. Echocardiogram demonstrated a normal EF. (3) Dyslipidemia Is this a current diagnosis for this admission?: Yes Plan: check lipid panel. (4) Orthostatic hypotension Is this a current diagnosis for this admission?: Yes Plan: Resolved. (5) Abnormal EKG Is this a current diagnosis for this admission?: Yes Plan: Stress test is negative for ischemia. It is likely that the EKG changes were due to the AF with RVR. - Time Time Spent with patient: 25-34 minutes Medications reviewed and adjusted accordingly: Yes
[2017-11-14] MEDS: LATANOPROST 0.005% OPH SOLN 2.5 ML OU SCH (21:37)
[2017-11-14] MEDS: DOCUSATE SODIUM 100 MG CAPSULE PO SCH (21:37)
[2017-11-15] MEDS: LANSOPRAZOLE 30 MG TAB.RAP.DR PO SCH (05:42)
[2017-11-15] MEDS: ACETAMINOPHEN 325 MG TABLET PO PRN ×2 (08:12→15:39)
[2017-11-15 08:56] LABS: CHOLESTEROL 293.15 mg/dL (0-200); TRIGLYCERIDES 239 mg/dL (<150)
[2017-11-15 09:07] LABS: DIRECT LDL 186 mg/dL (<100)
[2017-11-15 09:20] LABS: VLDL CHOLESTEROL 47.8 mg/dL (10-31)
[2017-11-15] MEDS: SPIRONOLACTONE 25 MG TABLET PO SCH (09:34)
[2017-11-15] MEDS: LISINOPRIL 10 MG TABLET PO SCH ×2 (09:34→21:14)
[2017-11-15] MEDS: DILTIAZEM HCL 120 MG CAP.SR.24H PO SCH ×2 (09:34→21:15)
[2017-11-15] MEDS: APIXABAN 5 MG TABLET PO SCH ×2 (09:34→21:15)
[2017-11-15] MEDS: METOPROLOL SUCCINATE 25 MG TAB.SR.24H PO SCH ×2 (09:34→21:15)
[2017-11-15] MEDS: CALCIUM CARBONATE 250 MG/VITAMIN D3 125 UNIT TABLET PO SCH ×2 (09:38→21:14)
[2017-11-15] MEDS: AMIODARONE HCL 200 MG TABLET PO SCH ×2 (14:32→21:15)
--- NOTE | 2017-11-15 17:32 | PDOC PROGRESS REPORT ---
Subjective Progress Note for:: 11/15/17 Subjective:: The patient continues to have very high heart rates with ambulation despite increase in the dosage of metoprolol. Reason For Visit: RAPID ATRIAL FIBRILLATION Physical Exam Vital Signs: Temp Pulse Resp BP Pulse Ox 98.0 F 80 16 95/58 L 95 11/14/17 23:18 11/15/17 14:00 11/15/17 03:18 11/15/17 03:18 11/15/17 03:18 Intake & Output 11/14/17 11/15/17 11/16/17 06:59 06:59 06:59 Intake Total 580 1433 Balance 580 1433 Weight 69.1 kg 69.3 kg General appearance: PRESENT: no acute distress, cooperative Respiratory exam: ABSENT: rales, stridor, wheezes Cardiovascular exam: PRESENT: RRR. ABSENT: gallop, rubs, systolic murmur GI/Abdominal exam: PRESENT: normal bowel sounds, soft. ABSENT: hernia, mass, organolmegaly, tenderness Extremities exam: PRESENT: tenderness. ABSENT: clubbing, pedal edema Musculoskeletal exam: PRESENT: deformity, normal inspection. ABSENT: dislocation, tenderness Neurological exam: PRESENT: alert, awake, oriented to person, oriented to place , oriented to time, oriented to situation, CN II-XII grossly intact. ABSENT: motor sensory deficit Psychiatric exam: PRESENT: appropriate affect, normal mood Skin exam: PRESENT: dry, intact, warm Results Laboratory Results: 11/13/17 05:14 11/12/17 05:23 11/15/17 07:30 Triglycerides 239 H Cholesterol 293.15 H LDL Cholesterol Direct 186 H VLDL Cholesterol 47.8 H HDL Cholesterol 42 11/12/17 11/12/17 11/12/17 05:23 11:11 17:19 Troponin I 0.040 0.020 0.018 Impressions: Chest X-Ray 11/11/17 18:20 IMPRESSION: Cannot exclude limited left lower lobe pneumonia. Assessment & Plan - Diagnosis (1) Atrial fibrillation with RVR Is this a current diagnosis for this admission?: Yes Plan: Rate is in the 70-80's at rest, but increases to the 150's with excercise. The patient's blood pressure is borderline. I will add amiodarone. (2) Coronary artery disease Qualifiers: Coronary Disease-Associated Artery/Lesion type: [place] artery [place] vs. transplanted heart: [place] heart Associated angina: angina presence unspecified Qualified Code(s): I25.10 - Atherosclerotic heart disease of [place] coronary artery without angina pectoris Is this a current diagnosis for this admission?: Yes Plan: Stress test was negative for ischemia. Echocardiogram demonstrated a normal EF. (3) Dyslipidemia Is this a current diagnosis for this admission?: Yes Plan: The patient has been started on a statin. (4) Orthostatic hypotension Is this a current diagnosis for this admission?: Yes Plan: Resolved. (5) Abnormal EKG Is this a current diagnosis for this admission?: Yes Plan: Stress test is negative for ischemia. It is likely that the EKG changes were due to the AF with RVR. - Time Time Spent with patient: 25-34 minutes Medications reviewed and adjusted accordingly: Yes
[2017-11-15] MEDS: LATANOPROST 0.005% OPH SOLN 2.5 ML OU SCH (21:14)
[2017-11-15] MEDS: DOCUSATE SODIUM 100 MG CAPSULE PO SCH (21:15)
[2017-11-16] MEDS: TEMAZEPAM 7.5 MG CAPSULE PO PRN (04:17)
[2017-11-16] MEDS: LANSOPRAZOLE 30 MG TAB.RAP.DR PO SCH (05:18)
[2017-11-16] MEDS: ACETAMINOPHEN 325 MG TABLET PO PRN (05:45)
[2017-11-16 06:06] LABS: ABSOLUTE EOSINOPHILS # (AUTO) 0.2 10^3/uL (0.0-0.6); ABSOLUTE MONOCYTES (AUTO) 1.1 10^3/uL (0.1-1.4); ABSOLUTE NEUT (AUTO) 5.7 10^3/uL (1.7-8.2); BASOPHILS % (AUTO) 0.5 % (0-2); EOSINOPHILS % (AUTO) 2.2 % (0-6); HEMATOCRIT 39.2 % (36.0-47.0); HEMOGLOBIN 13.3 g/dL (12.0-15.5); LYMPHOCYTES % (AUTO) 21.9 % (13-45); MEAN CORPUSCULAR HEMOGLOBIN 31.5 pg (27.0-33.4); MEAN CORPUSCULAR HGB CONC 33.9 g/dL (32.0-36.0); MEAN CORPUSCULAR VOLUME 93 fl (80-97); MONOCYTES % (AUTO) 12.1 % (3-13); PLATELET COUNT 257 10^3/uL (150-450); RED BLOOD COUNT 4.22 10^6/uL (3.72-5.28); RED CELL DISTRIBUTION WIDTH 13.9 % (11.5-14.0); SEGMENTED NEUTROPHILS % (AUTO) 63.3 % (42-78); TOTAL CELLS COUNTED % (AUTO) 100 %; WHITE BLOOD COUNT 9.1 10^3/uL (4.0-10.5)
[2017-11-16 07:08] LABS: ANION GAP 13 (5-19); BLOOD UREA NITROGEN 30 mg/dL (7-20); CALCIUM 10.3 mg/dL (8.4-10.2); CARBON DIOXIDE 20 mmol/L (22-30); CHLORIDE 107 mmol/L (98-107); GLUCOSE 97 mg/dL (75-110); POTASSIUM 4.3 mmol/L (3.6-5.0); SODIUM 139.6 mmol/L (137-145)
[2017-11-16] MEDS: METOPROLOL SUCCINATE 25 MG TAB.SR.24H PO SCH (09:54)
[2017-11-16] MEDS: CALCIUM CARBONATE 250 MG/VITAMIN D3 125 UNIT TABLET PO SCH (09:54)
[2017-11-16] MEDS: DILTIAZEM HCL 120 MG CAP.SR.24H PO SCH (09:54)
[2017-11-16] MEDS: LISINOPRIL 10 MG TABLET PO SCH (09:54)
[2017-11-16] MEDS: APIXABAN 5 MG TABLET PO SCH (09:54)
[2017-11-16] MEDS: SPIRONOLACTONE 25 MG TABLET PO SCH (09:55)
[2017-11-16] MEDS: AMIODARONE HCL 200 MG TABLET PO SCH (09:59)
--- NOTE | 2017-11-16 14:04 | PDOC DISCHARGE SUMMARY ---
General - Admit/Disc Date/PCP Admission Date/Primary Care Provider: 11/12/17 00:11 SANTINO SIMS MD Discharge Date: 11/16/17 - Discharge Diagnosis (1) Atrial fibrillation with RVR Is this a current diagnosis for this admission?: Yes (2) Coronary artery disease Is this a current diagnosis for this admission?: Yes (3) Dyslipidemia Is this a current diagnosis for this admission?: Yes (4) Orthostatic hypotension Is this a current diagnosis for this admission?: Yes (5) Abnormal EKG Is this a current diagnosis for this admission?: Yes - Additional Information Resuscitation Status: Do Not Resuscitate Discharge Activity: Activity As Tolerated, No Driving - today. Prescriptions: Amiodarone HCl [Cordarone 200 mg Tablet] 400 mg PO Q12 #84 tablet Diltiazem HCl [Cardizem Cd 120 mg Capsule] 120 mg PO Q12 #30 cap.sr.24h Metoprolol Succinate 25 mg PO DAILY #30 tab.er.24h Home Medications: Apixaban [Eliquis 5 mg Tablet] 5 mg PO Q12 03/28/16 Docusate Sodium [Colace 100 mg Capsule] 100 mg PO QHS 03/28/16 Latanoprost [Xalatan 0.005% Oph Soln 2.5 ml] 1 drop OU QHS 03/28/16 Omeprazole 40 mg PO DAILY 03/28/16 Spironolactone [Aldactone 25 mg Tablet] 25 mg PO DAILY 03/28/16 Ubidecarenone [Coq-10] 100 mg PO DAILY 03/28/16 Lisinopril [Prinivil 10 mg Tablet] 10 mg PO Q12 tablet 04/02/16 Calcium Carbonate/Vitamin D3 [Calcium 600-Vit D3 800 Tablet] 1 each PO Q12 11/12 Diazepam [Valium 5 mg Tablet] 5 mg PO QHS 11/12/17 Amiodarone HCl [Cordarone 200 mg Tablet] 400 mg PO Q12 #84 tablet 11/16/17 Diltiazem HCl [Cardizem Cd 120 mg Capsule] 120 mg PO Q12 #30 cap.sr.24h Metoprolol Succinate 25 mg PO DAILY #30 tab.er.24h 11/16/17 History of Present Illness History of Present Illness: ANA TREJO is a 76 year old female with history of paroxysmal atrial fibrillation on Eliquis.Patient comes to the emergency department as she was watching TV at 4 PM and started with new onset palpitations, heart rate was 107 blood pressure was normal. She decided to check it later as her symptoms did not improved and she noticed that her diastolic BP was 115 she does not remember the systolic and her heart rate was 145, her symptoms were associated with shortness of breath and mild chest tightness, she feels weak. Denies diaphoresis, nausea, vomiting, fever, chills, has mild cough once in a while, denies wheezing, sputum. Tells me that she has been having very bad diarrhea for the last 3 weeks and she has been on ciprofloxacin which last dose was a couple of days ago, she has been told that she has possible diverticulitis. EKG shows atrial fibrillation at 137 bpm. Given 15 mg of Cardizem and her blood pressure decreased to 92/50 but her heart rate was in the 90s, the patient is still says that she feels the irregular heartbeat. She remains on A. fib. First troponins negative and the second 1 0.43. Was given her evening dose of sotalol Her chest x-ray shows a possible left lower lobe infiltrate but the patient does not have any respiratory symptoms. Hospital Course Hospital Course: The patient was admitted to a telemetry bed. Dr. Lord was consulted for cardiology. She was started on anticoagulation and and echocardiogram was ordered to evaluate for valvular abnormality. She had some chest pain, so the patient also underwent a stress test. The stress test and the echocardiogram were unremarkable. The patient's heart rate was controlled at rest, but was very high with any exertion. Her rate limiting medications were adjusted, but the doses were limited by the patient's blood pressure. Amiodarone was added. The patient's heart rate was controlled on this medication. I discussed the patient with Dr. Lord. He agreed that the patient could be discharged to home. She will be discharged to home in good condition. Physical Exam Vital Signs: Temp Pulse Resp BP Pulse Ox 98.0 F 65 16 91/43 L 97 11/16/17 03:12 11/16/17 07:00 11/16/17 03:12 11/16/17 03:12 11/16/17 03:12 Intake & Output 11/15/17 11/16/17 11/17/17 06:59 06:59 06:59 Intake Total 1433 834 Balance 1433 834 Weight 69.3 kg 68.7 kg General appearance: PRESENT: no acute distress, cooperative Respiratory exam: PRESENT: other - No increased work of breathing.. ABSENT: rales, rhonchi, wheezes Cardiovascular exam: PRESENT: RRR. ABSENT: gallop, rubs, systolic murmur GI/Abdominal exam: PRESENT: normal bowel sounds, soft. ABSENT: distended, hernia, mass, organolmegaly, tenderness Extremities exam: ABSENT: clubbing, pedal edema, tenderness Neurological exam: PRESENT: alert, awake, oriented to person, oriented to place , oriented to time, oriented to situation, CN II-XII grossly intact. ABSENT: motor sensory deficit Psychiatric exam: PRESENT: appropriate affect, normal mood Skin exam: PRESENT: dry, intact, warm Results Laboratory Results: 11/16/17 04:59 11/16/17 04:59 11/16/17 11/16/17 04:59 04:59 WBC 9.1 RBC 4.22 Hgb 13.3 Hct 39.2 MCV 93 MCH 31.5 MCHC 33.9 RDW 13.9 Plt Count 257 Seg Neutrophils % 63.3 Lymphocytes % 21.9 Monocytes % 12.1 Eosinophils % 2.2 Basophils % 0.5 Absolute Neutrophils 5.7 Absolute Lymphocytes 2.0 Absolute Monocytes 1.1 Absolute Eosinophils 0.2 Absolute Basophils 0.0 Sodium 139.6 Potassium 4.3 Chloride 107 Carbon Dioxide 20 L Anion Gap 13 BUN 30 H Creatinine 0.97 Est GFR ( Amer) > 60 Est GFR (Non-Af Amer) 56 L Glucose 97 Calcium 10.3 H 11/12/17 11/12/17 11/12/17 05:23 11:11 17:19 Troponin I 0.040 0.020 0.018 Impressions: Chest X-Ray 11/11/17 18:20 IMPRESSION: Cannot exclude limited left lower lobe pneumonia. Qualifiers - * PATIENT BEING DISCHARGED WITH ANY OF THE FOLLOWING DIAGNOSIS: No
[2017-11-16 18:29] VITALS: BP 113/52
--- NOTE | 2017-11-16 20:00 | PDOC PROGRESS REPORT ---
Subjective Progress Note for:: 11/15/17 Subjective:: Continues with rapid heartbeat on ambulation. Agree with placing patient on amiodarone therapy. Patient seems to be doing better with gradual improvement. Pt is denying any chest arm or neck discomfort. Patient denying any PND, orthopnea. Patient denied any sustained palpitations, dizziness, syncope, near syncope. Patient denying any fever chills. Patient denying any other significant discomfort. Patient is maintaining atrial fibrillation. Heart rate is somewhat on the high side. Review of systems: Rest review of systems negative. Medications: Medications have been reviewed. Reason For Visit: RAPID ATRIAL FIBRILLATION Physical Exam Vital Signs: Temp Pulse Resp BP Pulse Ox 98.1 F 121 H 16 123/61 99 11/15/17 15:57 11/15/17 18:42 11/15/17 15:57 11/15/17 15:57 11/15/17 15:57 Intake & Output 11/14/17 11/15/17 11/16/17 06:59 06:59 06:59 Intake Total 580 1433 834 Balance 580 1433 834 Weight 69.1 kg 69.3 kg Exam: GENERAL: well-nourished and in no acute distress. Alert and oriented x3 HEAD: Atraumatic, normocephalic. EYES: Pupils equal round and reactive to light, extraocular movements intact, sclera anicteric, conjunctiva are normal. ENT: TMs normal, nares patent, oropharynx clear without exudates. Moist mucous membranes. No oral ulcerations or bleeding gums noted NECK: supple without lymphadenopathy. Trachea is central. No cervical or axillary lymphadenopathy noted. Carotids are 2+, JVD WNL LUNGS: Respiration seems nonlabored, no significant accessory muscle action noted. Breath sounds clear to auscultation bilaterally and equal noted. No wheezes rales or rhonchi noted. No significant dullness noted on percussion. CHEST: Palpation of the chest wall shows no significant chest wall tenderness. HEART: [place] [employer], No PSH, 1/6 ELVIN aortic area, 1/6 banuelos systolic murmur mitral area, no rubs, no gallops. ABDOMEN: Soft, no significant tenderness appreciated, normoactive bowel sounds. No guarding, no rebound. No rigidity noted . No masses appreciated. EXTREMITIES: Pedal pulses are 1-2+, no calf tenderness noted. No clubbing or cyanosis. negative pedal edema noted NEUROLOGICAL: Focused neurological exam showed no significant neurologic deficit. Normal speech, no focal weakness appreciated. PSYCH: Normal mood, normal affect. Judgment and insight within normal limits. SKIN: No significant ecchymosis, skin is noted to be warm. MUSCULOSKELETAL EXAM: No significant acute joint swelling noted. Results Laboratory Results: 11/13/17 05:14 11/12/17 05:23 11/15/17 07:30 Triglycerides 239 H Cholesterol 293.15 H LDL Cholesterol Direct 186 H VLDL Cholesterol 47.8 H HDL Cholesterol 42 11/12/17 11/12/17 11/12/17 05:23 11:11 17:19 Troponin I 0.040 0.020 0.018 EKG Comments: Shows atrial fibrillation with rapid ventricular response Impressions: Chest X-Ray 11/11/17 18:20 IMPRESSION: Cannot exclude limited left lower lobe pneumonia. Assessment & Plan - Diagnosis (1) Atrial fibrillation with RVR Is this a current diagnosis for this admission?: Yes (2) Coronary artery disease Qualifiers: Coronary Disease-Associated Artery/Lesion type: [place] artery [place] vs. transplanted heart: [place] heart Associated angina: angina presence unspecified Qualified Code(s): I25.10 - Atherosclerotic heart disease of [place] coronary artery without angina pectoris Is this a current diagnosis for this admission?: Yes (3) Dyslipidemia Is this a current diagnosis for this admission?: Yes (4) GERD (gastroesophageal reflux disease) Qualifiers: Esophagitis presence: esophagitis presence not specified Qualified Code(s) : K21.9 - Gastro-esophageal reflux disease without esophagitis Is this a current diagnosis for this admission?: Yes (5) Hypertension Qualifiers: Hypertension type: unspecified secondary hypertension Qualified Code(s): I15.9 - Secondary hypertension, unspecified Is this a current diagnosis for this admission?: Yes - Notes Notes: Atrial fibrillation with rapid ventricular response: Patient still has rapid ventricular response. Patient currently on Cardizem and beta-ann therapy. Patient now placed on amiodarone for better rate control. Patient continues on chronic anticoagulation. Coronary artery disease: Currently symptomatically stable. Stress test was negative for any pharmacologic stress-induced ischemia. 2D echocardiogram shows normal LVEF. Dyslipidemia: Recommend statin therapy. Gastroesophageal reflux disease: Currently stable. Continue antacid therapy. Hypertension: Blood pressure under satisfactory control. Patient being observed overnight since amiodarone was started. If patient feels fine, could be discharged tomorrow with event monitor as an outpatient. - Time Time with patient: Greater than 35 minutes - CODE STATUS was discussed, patient remains full code. Surrogate decision-maker unchanged. Multiple medical problems were addressed. More than 50% of the time spent coordinating care, discussing management plans with involved caregivers. Management plans discussed with involved personnels. Medical decision making was of moderate to high complexity, patient's has multiple comorbidities. Medications reviewed and adjusted accordingly: Yes
--- NOTE | 2017-11-16 20:02 | PDOC PROGRESS REPORT ---
Subjective Progress Note for:: 11/16/17 Subjective:: Heart rate response seems improved. Mild bradycardia noted however this was in sleep. Patient seems to be tolerating amiodarone therapy. Patient seems to be doing better with gradual improvement. Pt is denying any chest arm or neck discomfort. Patient denying any PND, orthopnea. Patient denied any sustained palpitations, dizziness, syncope, near syncope. Patient denying any fever chills. Patient denying any other significant discomfort. Patient is maintaining atrial fibrillation. Heart rate is better controlled Review of systems: Rest review of systems negative. Medications: Medications have been reviewed. Reason For Visit: RAPID ATRIAL FIBRILLATION Physical Exam Vital Signs: Temp Pulse Resp BP Pulse Ox 98.0 F 79 16 132/84 H 97 11/16/17 14:17 11/16/17 14:17 11/16/17 14:17 11/16/17 14:17 11/16/17 14:17 Intake & Output 11/15/17 11/16/17 11/17/17 06:59 06:59 06:59 Intake Total 1433 834 651 Balance 1433 834 651 Weight 69.3 kg 68.7 kg Exam: GENERAL: well-nourished and in no acute distress. Alert and oriented x3 HEAD: Atraumatic, normocephalic. EYES: Pupils equal round and reactive to light, extraocular movements intact, sclera anicteric, conjunctiva are normal. ENT: TMs normal, nares patent, oropharynx clear without exudates. Moist mucous membranes. No oral ulcerations or bleeding gums noted NECK: supple without lymphadenopathy. Trachea is central. No cervical or axillary lymphadenopathy noted. Carotids are 2+, JVD WNL LUNGS: Respiration seems nonlabored, no significant accessory muscle action noted. Breath sounds clear to auscultation bilaterally and equal noted. No wheezes rales or rhonchi noted. No significant dullness noted on percussion. CHEST: Palpation of the chest wall shows no significant chest wall tenderness. 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 ABDOMEN: Soft, no significant tenderness appreciated, normoactive bowel sounds. No guarding, no rebound. No rigidity noted . No masses appreciated. EXTREMITIES: Pedal pulses are 1-2+, no calf tenderness noted. No clubbing or cyanosis. negative pedal edema noted NEUROLOGICAL: Focused neurological exam showed no significant neurologic deficit. Normal speech, no focal weakness appreciated. PSYCH: Normal mood, normal affect. Judgment and insight within normal limits. SKIN: No significant ecchymosis, skin is noted to be warm. MUSCULOSKELETAL EXAM: No significant acute joint swelling noted. Results Laboratory Results: 11/16/17 04:59 11/16/17 04:59 11/16/17 11/16/17 04:59 04:59 WBC 9.1 RBC 4.22 Hgb 13.3 Hct 39.2 MCV 93 MCH 31.5 MCHC 33.9 RDW 13.9 Plt Count 257 Seg Neutrophils % 63.3 Lymphocytes % 21.9 Monocytes % 12.1 Eosinophils % 2.2 Basophils % 0.5 Absolute Neutrophils 5.7 Absolute Lymphocytes 2.0 Absolute Monocytes 1.1 Absolute Eosinophils 0.2 Absolute Basophils 0.0 Sodium 139.6 Potassium 4.3 Chloride 107 Carbon Dioxide 20 L Anion Gap 13 BUN 30 H Creatinine 0.97 Est GFR ( Amer) > 60 Est GFR (Non-Af Amer) 56 L Glucose 97 Calcium 10.3 H 11/12/17 11/12/17 11/12/17 05:23 11:11 17:19 Troponin I 0.040 0.020 0.018 Impressions: Chest X-Ray 11/11/17 18:20 IMPRESSION: Cannot exclude limited left lower lobe pneumonia. Assessment & Plan - Diagnosis (1) Atrial fibrillation with RVR Is this a current diagnosis for this admission?: Yes (2) Coronary artery disease Qualifiers: Coronary Disease-Associated Artery/Lesion type: [place] artery [place] vs. transplanted heart: [place] heart Associated angina: angina presence unspecified Qualified Code(s): I25.10 - Atherosclerotic heart disease of [place] coronary artery without angina pectoris Is this a current diagnosis for this admission?: Yes (3) Dyslipidemia Is this a current diagnosis for this admission?: Yes (4) GERD (gastroesophageal reflux disease) Qualifiers: Esophagitis presence: esophagitis presence not specified Qualified Code(s) : K21.9 - Gastro-esophageal reflux disease without esophagitis Is this a current diagnosis for this admission?: Yes (5) Hypertension Qualifiers: Hypertension type: unspecified secondary hypertension Qualified Code(s): I15.9 - Secondary hypertension, unspecified Is this a current diagnosis for this admission?: Yes - Notes Notes: Atrial fibrillation with rapid ventricular response: Patient still has rapid ventricular response. Patient currently on Cardizem and beta-ann therapy. Patient tolerating amiodarone therapy. Patient continues on chronic anticoagulation. Coronary artery disease: Currently symptomatically stable. Stress test was negative for any pharmacologic stress-induced ischemia. 2D echocardiogram shows normal LVEF. Dyslipidemia: Recommend statin therapy. Gastroesophageal reflux disease: Currently stable. Continue antacid therapy. Hypertension: Blood pressure under satisfactory control. Patient wanting to be discharged. Will consider scheduling patient for a cardiac event monitor as an outpatient. - Time Time with patient: Greater than 35 minutes - CODE STATUS was discussed, patient remains full code. Surrogate decision-maker unchanged. Multiple medical problems were addressed. More than 50% of the time spent coordinating care, discussing management plans with involved caregivers. Management plans discussed with involved personnels. Medical decision making was of moderate to high complexity, patient's has multiple comorbidities. Medications reviewed and adjusted accordingly: Yes
== END 2017-11-16 18:49 | disposition home or self-care (01) | DRG 310 ==
LOC: ER 17:36 → INTOOBSV 11-12 00:11 → OBSVTOIN 11-12 00:11 → EH 11-12 00:11 → 3W 11-12 05:07
PROVIDERS: ADMIT Internal Medicine; ATTEND Internal Medicine
DX: I48.0 Paroxysmal atrial fibrillation (principal); E78.2 Mixed hyperlipidemia; I10 Essential (primary) hypertension; I25.10 Atherosclerotic heart disease of native coronary artery without angina pectoris; I95.1 Orthostatic hypotension; E78.5 Hyperlipidemia, unspecified; R94.31 Abnormal electrocardiogram [ECG] [EKG]; K21.9 Gastro-esophageal reflux disease without esophagitis; M19.90 Unspecified osteoarthritis, unspecified site; Z66 Do not resuscitate; Z95.5 Presence of coronary angioplasty implant and graft; Z82.49 Family history of ischemic heart disease and other diseases of the circulatory system; I25.2 Old myocardial infarction; Z86.73 Personal history of transient ischemic attack (TIA), and cerebral infarction without residual deficits; Z79.01 Long term (current) use of anticoagulants; Z88.6 Allergy status to analgesic agent
CPT/HCPCS: 36415; 71045; 78452; 80048; 80053; 80061; 82550; 82553; 83735; 84439; 84443; 84481; 84484; 85025; 93005; 93010; 93017; 93306; 96361; 96374; 99291; A9500; G0378; J2785; J3490; J7040; Q9969

== ENCOUNTER 2018-05-11 15:52 | Observation (INO) | payer MEDICARE, MEDICAID ==
--- NOTE | 2018-05-11 16:32 | ER Document Report ---
ED Medical Screen (RME) - General Chief Complaint: Headache Stated Complaint: HEADACHE Time Seen by Provider: 05/11/18 16:23 Primary Care Provider: SANTINO SIMS MD [Primary Care Provider] - Follow up as needed Notes: Patient is a 77-year-old female that presents to the emergency department for chief complaint of feeling weak. Patient states she had a weird feeling around 3 PM today in her head, and lasted about 15 minutes and then went away. She has a history of TIAs, and atrial fibrillation, currently on Eliquis, denies missing any doses, denies head injury. She now has right-sided facial droop.. ROS: Other than noted above, the 12 point review of systems was reviewed with the patient and were negative, all pertinent findings are included in the HPI. PHYSICAL EXAMINATION: Vital signs reviewed. GENERAL: Elderly female, no acute distress. HEAD: Atraumatic, normocephalic. EYES: Pupils equal round extraocular movements intact, conjunctiva are normal. ENT: Nares patent NECK: Normal range of motion CV: Heart regular rate and rhythm LUNGS: No respiratory distress Musculoskeletal: Normal range of motion NEUROLOGICAL: Normal speech, right-sided facial droop, no other appreciable deficits. PSYCH: Normal mood, normal affect. MDM: Patient seen and examined for rapid initial assessment. Vital signs reviewed. A comprehensive ED assessment and evaluation of the patient, analysis of test results and completion of the medical decision making process will be conducted by additional ED providers. *Note is created using voice recognition software and may contain spelling, syntax or grammatical errors. TRAVEL OUTSIDE OF THE [place] IN LAST 30 DAYS: No - Related Data Allergies/Adverse Reactions: No Known Allergies Allergy (Verified 08/01/17 18:52) Past Medical History - Past Medical History Cardiac Medical History: Reports: Hx Atrial Fibrillation, Hx Coronary Artery Disease, Hx Heart Attack - 4 YRS AGO, 5X STENTS PLACED, Hx Hypercholesterolemia, Hx Hypertension - ON MEDS Pulmonary Medical History: Reports: Hx Pneumonia - H/O A WHILE AGO Denies: Hx Asthma, Hx Bronchitis, Hx COPD Neurological Medical History: Reports: Hx Cerebrovascular Accident. Denies: Hx Seizures Renal/ Medical History: Reports: Hx Ovarian Cysts. Denies: Hx Peritoneal Dialysis GI Medical History: Reports: Hx Gastroesophageal Reflux Disease Musculoskeltal Medical History: Reports Hx Arthritis - BACK, SHOULDERS, HIPS, LEGS, Reports Hx Musculoskeletal Trauma Psychiatric Medical History: Denies: Hx Depression Traumatic Medical History: Reports: Hx Spine Fracture Past Surgical History: Reports: Hx Cardiac Catheterization, Hx Coronary Stent - 5 stents and 4 vessels. Last stent was over 12 years ago., Hx Gynecologic Surgery - Ovarian cyst surgery, Hx Hysterectomy, Hx Orthopedic Surgery - Immunizations Immunizations up to date: No Hx Diphtheria, Pertussis, Tetanus Vaccination: No Influenza Administration Date for 12/2016 - 05/2017 Season: 12/16/16 Doctor's Discharge - Discharge Referrals: SANTINO SIMS MD [Primary Care Provider] - Follow up as needed
--- NOTE | 2018-05-11 16:51 | RADIOLOGY REPORT (SQ) ---
EXAM DESCRIPTION: CT HEAD WITHOUT COMPLETED DATE/TIME: 05/11/2018 4:41 pm REASON FOR STUDY: right facial droop, on eliquis COMPARISON: None. TECHNIQUE: Axial images acquired through the brain without intravenous contrast. Images reviewed wi th bone, brain and subdural windows. Additional sagittal and coronal reconstructions were generated. Images stored on PACS. All CT scanners at this facility use dose modulation, iterative reconstruction, and/or weight based d osing when appropriate to reduce radiation dose to as low as reasonably achievable (ALARA). [facility]: Dose Right [facility]: CareDose [facility]: Dose Right [facility]: Teradose 4D [facility]: [employer] RADIATION DOSE: CT Rad equipment meets quality standard of care and radiation dose reduction techniq ues were employed. CTDIvol: 53.2 mGy. DLP: 991 mGy-cm. mGy. LIMITATIONS: None. FINDINGS: VENTRICLES: Prominent. CEREBRUM: No masses. No hemorrhage. No midline shift. Areas of low density in the white matter mos t likely due to chronic micro-vascular ischemic change. No evidence for acute infarction. CEREBELLUM: No masses. No hemorrhage. No alteration of density. No evidence for acute infarction. EXTRAAXIAL SPACES: Mild age-related involutional change. No fluid collections. No masses. ORBITS AND GLOBE: No intra- or extraconal masses. Normal contour of globe without masses. CALVARIUM: No fracture. PARANASAL SINUSES: No fluid or mucosal thickening. SOFT TISSUES: No mass or hematoma. OTHER: No other significant finding. IMPRESSION: MILD CHRONIC CHANGES OF ATROPHY AND MICROVASCULAR ISCHEMIA. NO ACUTE PROCESS. EVIDENCE OF ACUTE STROKE: NO. COMMENT: Pertinent positive or negative findings of the imaging study reported as a CRITICAL EXAM angelica CHAUHAN DO at16:45 on 05/11/2018. Category of Critical Exam: Stroke alert. TECHNICAL DOCUMENTATION: JOB ID: [id number] Quality ID # [id number]: Final reports with documentation of one or more dose reduction techniques (e.g., Au tomated exposure control, adjustment of the mA and/or kV according to patient size, use of iterative reconstruction technique) 2010 [employer]- All Rights Reserved Reading location - IP/workstation name: [email or web address]
--- NOTE | 2018-05-11 16:55 | RADIOLOGY REPORT (SQ) ---
EXAM DESCRIPTION: CHEST SINGLE VIEW COMPLETED DATE/TIME: 05/11/2018 4:36 pm REASON FOR STUDY: right facial droop, on eliquis COMPARISON: None. EXAM PARAMETERS: NUMBER OF VIEWS: One view. TECHNIQUE: Single frontal radiographic view of the chest acquired. RADIATION DOSE: NA LIMITATIONS: None. FINDINGS: LUNGS AND PLEURA: No opacities, masses or pneumothorax. No pleural effusion. MEDIASTINUM AND HILAR STRUCTURES: No masses. Contour normal. HEART AND VASCULAR STRUCTURES: Heart normal in size. Normal vasculature. BONES: No acute findings. HARDWARE: None in the chest. OTHER: No other significant finding. IMPRESSION: NO ACUTE RADIOGRAPHIC FINDING IN THE CHEST. TECHNICAL DOCUMENTATION: JOB ID: [id number] [employer]- All Rights Reserved Reading location - IP/workstation name: [email or web address]
--- NOTE | 2018-05-11 16:55 | ER Document Report ---
ED General - General Chief Complaint: Headache Stated Complaint: HEADACHE Time Seen by Provider: 05/11/18 16:23 Primary Care Provider: SANTINO SIMS MD [Primary Care Provider] - Follow up as needed Notes: 77-year-old female called code stroke in triage secondary to the onset at 3 PM of feeling some "head funny feeling" lasting about 15 minutes. She denies any real pain. She denies any blurry vision. She denies any focal weakness or numbness. It was noted in triage that the patient had a right facial droop that the patient was called a code stroke and taken back to the main emergency department where she received a CT scan of the head in route to the room. Patient herself denies any symptomatology. She specifically denies any headache, neck pain, chest pain, palpitations, abdominal pain, or focal weakness or numbness. Patient has a past medical history as recorded including previous history of atrial fibrillation with ablation this past . Patient is on [employer]. TRAVEL OUTSIDE OF THE [place] IN LAST 30 DAYS: No - Related Data Allergies/Adverse Reactions: No Known Allergies Allergy (Verified 08/01/17 18:52) Past Medical History - Social History Smoking Status: Never Smoker Chew tobacco use (# tins/day): Yes Frequency of alcohol use: None Drug Abuse: None Family History: CAD, CVA, Hyperlipidemia, Hypertension, Malignancy Patient has suicidal ideation: No Patient has homicidal ideation: No - Past Medical History Cardiac Medical History: Reports: Hx Atrial Fibrillation, Hx Coronary Artery Disease, Hx Heart Attack - 4 YRS AGO, 5X STENTS PLACED, Hx Hypercholesterolemia, Hx Hypertension - ON MEDS Pulmonary Medical History: Reports: Hx Pneumonia - H/O A WHILE AGO Denies: Hx Asthma, Hx Bronchitis, Hx COPD Neurological Medical History: Reports: Hx Cerebrovascular Accident. Denies: Hx Seizures Renal/ Medical History: Reports: Hx Ovarian Cysts. Denies: Hx Peritoneal D ialysis GI Medical History: Reports: Hx Gastroesophageal Reflux Disease Musculoskeletal Medical History: Reports Hx Arthritis - BACK, SHOULDERS, HIPS, LEGS, Reports Hx Musculoskeletal Trauma Psychiatric Medical History: Denies: Hx Depression Traumatic Medical History: Reports: Hx Spine Fracture Past Surgical History: Reports: Hx Cardiac Catheterization, Hx Cardiac Surgery - ablasion, Hx Coronary Stent - 5 stents and 4 vessels. Last stent was over 12 years ago., Hx Gynecologic Surgery - Ovarian cyst surgery, Hx Hysterectomy, Hx Orthopedic Surgery - Immunizations Immunizations up to date: No Hx Diphtheria, Pertussis, Tetanus Vaccination: No Hx Pneumococcal Vaccination: 03/10/09 Review of Systems - Review of Systems Constitutional: denies: Fever EENT: denies: Eye discharge, Nose discharge Cardiovascular: denies: Chest pain, Palpitations Respiratory: denies: Short of breath Gastrointestinal: denies: Vomiting Genitourinary: denies: Dysuria Musculoskeletal: denies: Leg swelling Skin: Other - no hives. denies: Rash Neurological/Psychological: Other - no slurred speech -: Yes All other systems reviewed and negative Physical Exam - Vital signs Vitals: Temp Pulse Resp BP Pulse Ox 98.3 F 87 18 141/64 H 97 05/11/18 16:11 05/11/18 16:11 05/11/18 16:11 05/11/18 16:11 05/11/18 16:11 Notes: Reviewed vital signs and nursing note as charted by RN. CONSTITUTIONAL: Alert and oriented and responds appropriately to questions. Well-appearing; well-nourished HEAD: Normocephalic; atraumatic EYES: PERRL; Conjunctivae clear, sclerae non-icteric ENT: Normal nose; no rhinorrhea; moist mucous membranes; pharynx without lesions noted NECK: Supple without meningismus; non-tender; no carotid bruit; no cervical lymphadenopathy, no masses CARD: Regular rate and rhythm; no murmurs; symmetric distal pulses RESP: Normal chest excursion without splinting or tachypnea; breath sounds clear and equal bilaterally; no wheezes, no rhonchi, no rales ABD/GI: Normal bowel sounds; non-distended; soft, non-tender; no palpable organomegaly or masses BACK: The back appears normal and is non-tender to palpation EXT: Normal ROM in all joints; non-tender to palpation; no edema SKIN: No acute lesions noted NEURO: CN 2-12 intact; 5/5 bilateral upper and lower extremity strength with sensation intact to light touch. VAN score is negative PSYCH: The patient's mood and manner are appropriate. Grooming and personal hygiene are appropriate. Course - Re-evaluation Re-evalutation: 05/11/18 16:54 Given the history and physical examination with an NIH score currently of 0, no facial droop at this time, van score negative, we will obtain the TIA workup and reassess the patient. Given the NIH score of 0 with the patient on Eliquis, I do not believe that the patient is a TPA candidate at this time. EKG shows a heart rate of 82, normal sinus rhythm, normal axis, incomplete left bundle branch block with poor R wave progression. Nonspecific widening of the QRS. Previous EKG from November 2017 shows atrial flutter with a heart rate of 137 with a similar incomplete left bundle branch block. 05/11/18 17:09 Labs thus far as recorded. Patient still denies any pain. No change in exam. Given the above history and physical examination, with no pain to the head, I do believe subarachnoid hemorrhage to be very unlikely. Given the transient facial weakness, with a history of A. fib, with EKG as recorded, with recent ablation, I do believe that the patient may need a TIA workup with possible echo and reassessment. 05/11/18 17:27 Labs as recorded. No change in exam. Chest x-ray shows normal heart, normal mediastinum, no fractures, normal lung lester, no pneumothorax. - Vital Signs Vital signs: Temp Pulse Resp BP Pulse Ox 98.3 F 87 18 141/64 H 97 05/11/18 16:11 05/11/18 16:11 05/11/18 16:11 05/11/18 16:11 05/11/18 16:11 - Laboratory Result Diagrams: 05/11/18 16:45 05/11/18 16:45 Laboratory results interpreted by me: 05/11/18 05/11/18 16:45 16:45 APTT 36.0 H BUN 21 H Creatinine 1.36 H Est GFR ( Amer) 46 L Est GFR (Non-Af Amer) 38 L Calcium 10.6 H Total Protein 8.5 H Discharge - Discharge Clinical Impression: Facial droop Condition: Fair Disposition: ADMITTED OBSERVATION Admitting Provider: Hospitalist Unit Admitted: Telemetry Referrals: SANTINO SIMS MD [Primary Care Provider] - Follow up as needed
[2018-05-11 16:59] LABS: ABSOLUTE EOSINOPHILS # (AUTO) 0.1 10^3/uL (0.0-0.6); ABSOLUTE LYMPHOCYTES (AUTO) 1.5 10^3/uL (0.5-4.7); ABSOLUTE MONOCYTES (AUTO) 0.7 10^3/uL (0.1-1.4); ABSOLUTE NEUT (AUTO) 5.4 10^3/uL (1.7-8.2); BASOPHILS % (AUTO) 0.5 % (0-2); HEMATOCRIT 40.2 % (36.0-47.0); HEMOGLOBIN 13.8 g/dL (12.0-15.5); LYMPHOCYTES % (AUTO) 19.4 % (13-45); MEAN CORPUSCULAR HEMOGLOBIN 32.7 pg (27.0-33.4); MEAN CORPUSCULAR HGB CONC 34.4 g/dL (32.0-36.0); MEAN CORPUSCULAR VOLUME 95 fl (80-97); MONOCYTES % (AUTO) 9.3 % (3-13); PLATELET COUNT 257 10^3/uL (150-450); RED BLOOD COUNT 4.24 10^6/uL (3.72-5.28); RED CELL DISTRIBUTION WIDTH 13.6 % (11.5-14.0); SEGMENTED NEUTROPHILS % (AUTO) 69.8 % (42-78); TOTAL CELLS COUNTED % (AUTO) 100 %; WHITE BLOOD COUNT 7.8 10^3/uL (4.0-10.5)
[2018-05-11 17:01] LABS: INTERNATIONAL RATION (INR) 1.08; PROTHROMBIN TIME 14.6 SEC (11.4-15.4)
[2018-05-11 17:18] LABS: ALANINE AMINOTRANSFERASE 20 U/L (9-52); ALBUMIN 4.9 g/dL (3.5-5.0); ALKALINE PHOSPHATASE 55 U/L (38-126); ANION GAP 11 (5-19); ASPARTATE AMINO TRANSFERASE 20 U/L (14-36); BILIRUBIN,DIRECT 0.2 mg/dL (0.0-0.4); BILIRUBIN,TOTAL 0.5 mg/dL (0.2-1.3); BLOOD UREA NITROGEN 21 mg/dL (7-20); CALCIUM 10.6 mg/dL (8.4-10.2); CARBON DIOXIDE 29 mmol/L (22-30); CHLORIDE 103 mmol/L (98-107); CREATINE KINASE 55 U/L (30-135); GLUCOSE 98 mg/dL (75-110); POTASSIUM 4.5 mmol/L (3.6-5.0); SODIUM 142.8 mmol/L (137-145); TOTAL PROTEIN 8.5 g/dL (6.3-8.2)
[2018-05-11 17:31] LABS: CREATINE KINASE MB 0.27 ng/mL (<4.55); TROPONIN I < 0.012 ng/mL
[2018-05-11] MEDS ORDERED: NORMAL SALINE 1000 ML 1,000 ML IV ONE (17:33)
[2018-05-11] MEDS ORDERED: NORMAL SALINE 1000 ML 1,000 ML IV PRN (18:10)
--- NOTE | 2018-05-11 18:29 | PDOC H&P ---
History of Present Illness Admission Date/PCP: 05/11/18 17:36 SANTINO SIMS MD Patient complains of: right facial droop History of Present Illness: ANA TREJO is a 77 year old female with a PMH of prior TIA, atrial fibrillation with prior cardioversion, on Eliquis, hypertension and CAD with 5 stents who presented with right facial droop. Patient says she was apparently fine until 3 pm this afternoon when she was watching TV and suddenly felt "like a wave was coming up my head". She denies any dizziness, slurring of speech, confusion or focal weakness or numbness. She denies chest pain, palpitations or SOB. She checked her BP that time and it was 124/70. She called her PCP who told her to got to the ER. In the ER, she was noted to have right facial droop. A stroke alert was called. This only lasted for a few minutes. CT head was unremarkable. Upon encounter, she is comfortable with no noticeable facial droop. Neuro exam is completely normal. Past Medical History Cardiac Medical History: Reports: Atrial Fibrillation, Coronary Artery Disease, Myocardial Infarction - 4 YRS AGO, 5X STENTS PLACED, Hyperlipidema, Hypertension - ON MEDS Pulmonary Medical History: Reports: Pneumonia - H/O A WHILE AGO Denies: Asthma, Bronchitis, Chronic Obstructive Pulmonary Disease (COPD) Neurological Medical History: Denies: Seizures GI Medical History: Reports: Gastroesophageal Reflux Disease Musculoskeltal Medical History: Reports: Arthritis - BACK, SHOULDERS, HIPS, LEGS Psychiatric Medical History: Denies: Depression Hematology: Denies: Anemia Past Surgical History Past Surgical History: Reports: Cardiac Catheterization, Coronary Stent - 5 stents and 4 vessels. Last stent was over 12 years ago., Hysterectomy, Orthopedic Surgery Social History Smoking Status: Never Smoker Frequency of Alcohol Use: None Hx Recreational Drug Use: No Drugs: None Hx Prescription Drug Abuse: No Family History Family History: CAD, CVA, Hyperlipidemia, Hypertension, Malignancy Parental Family History Reviewed: Yes Children Family History Reviewed: No Sibling(s) Family History Reviewed.: No Medication/Allergy Home Medications: Apixaban [Eliquis 5 mg Tablet] 5 mg PO Q12 03/28/16 Docusate Sodium [Colace 100 mg Capsule] 100 mg PO QHS 03/28/16 Latanoprost [Xalatan 0.005% Oph Soln 2.5 ml] 1 drop OU QHS 03/28/16 Omeprazole 40 mg PO DAILY 03/28/16 Spironolactone [Aldactone 25 mg Tablet] 25 mg PO DAILY 03/28/16 Ubidecarenone [Coq-10] 100 mg PO DAILY 03/28/16 Lisinopril [Prinivil 10 mg Tablet] 10 mg PO Q12 tablet 04/02/16 Calcium Carbonate/Vitamin D3 [Calcium 600-Vit D3 800 Tablet] 1 each PO Q12 11/12/17 Diazepam [Valium 5 mg Tablet] 5 mg PO QHS 11/12/17 Amiodarone HCl [Cordarone 200 mg Tablet] 400 mg PO Q12 #84 tablet 11/16/17 Diltiazem HCl [Cardizem Cd 120 mg Capsule] 120 mg PO Q12 #30 cap.sr.24h 11/16/17 Metoprolol Succinate 25 mg PO DAILY #30 tab.er.24h 11/16/17 Allergies/Adverse Reactions: No Known Allergies Allergy (Verified 08/01/17 18:52) Review of Systems All systems: reviewed and no additional remarkable complaints except as stated - as mentioned in HPI Physical Exam Vital Signs: Temp Pulse Resp BP Pulse Ox 98.3 F 74 21 H 139/72 H 94 05/11/18 16:11 05/11/18 17:00 05/11/18 18:01 05/11/18 18:00 05/11/18 18:01 Intake & Output 05/10/18 05/11/18 05/12/18 06:59 06:59 06:59 Weight 154 lb 1.65 oz General appearance: PRESENT: no acute distress, well-developed, well-nourished Head exam: PRESENT: atraumatic, normocephalic Eye exam: PRESENT: conjunctiva pink, EOMI, PERRLA. ABSENT: scleral icterus Ear exam: PRESENT: normal external ear exam Mouth exam: PRESENT: moist, tongue midline Neck exam: ABSENT: carotid bruit, JVD, lymphadenopathy, thyromegaly Respiratory exam: PRESENT: clear to auscultation gume. ABSENT: rales, rhonchi, wheezes Cardiovascular exam: PRESENT: RRR. ABSENT: diastolic murmur, rubs, systolic murmur GI/Abdominal exam: PRESENT: normal bowel sounds, soft. ABSENT: distended, guarding, mass, organolmegaly, rebound, tenderness Rectal exam: PRESENT: deferred Neurological exam: PRESENT: alert, awake, oriented to person, oriented to place, oriented to time, oriented to situation, CN II-XII grossly intact. ABSENT: mo tor sensory deficit Results Laboratory Results: 05/11/18 16:45 05/11/18 16:45 05/11/18 03 16:45 16:45 WBC 7.8 RBC 4.24 Hgb 13.8 Hct 40.2 MCV 95 MCH 32.7 MCHC 34.4 RDW 13.6 Plt Count 257 Seg Neutrophils % 69.8 Lymphocytes % 19.4 Monocytes % 9.3 Eosinophils % 1.0 Basophils % 0.5 Absolute Neutrophils 5.4 Absolute Lymphocytes 1.5 Absolute Monocytes 0.7 Absolute Eosinophils 0.1 Absolute Basophils 0.0 Sodium 142.8 Potassium 4.5 Chloride 103 Carbon Dioxide 29 Anion Gap 11 BUN 21 H Creatinine 1.36 H Est GFR ( Amer) 46 L Est GFR (Non-Af Amer) 38 L Glucose 98 Calcium 10.6 H Total Bilirubin 0.5 AST 20 ALT 20 Alkaline Phosphatase 55 Total Protein 8.5 H Albumin 4.9 05/11/18 05/11/18 16:45 16:45 Creatine Kinase 55 CK-MB (CK-2) 0.27 Troponin I < 0.012 Impressions: Head CT 05/11/18 16:28 IMPRESSION: MILD CHRONIC CHANGES OF ATROPHY AND MICROVASCULAR ISCHEMIA. NO ACUTE PROCESS. EVIDENCE OF ACUTE STROKE: NO. Chest X-Ray 05/11/18 16:29 IMPRESSION: NO ACUTE RADIOGRAPHIC FINDING IN THE CHEST. Assessment & Plan - Diagnosis (1) TIA (transient ischemic attack) Is this a current diagnosis for this admission?: Yes Plan: Facial droop has resolved. No apparent deficit at this time. She is on Eliquis. She says she was on aspirin and Plavix before but was taken off. She denies major bleeding episodes but does say she had a few episodes of epistaxis on Eliquis alone. She will be admitted as OBS. Discussed in length about adding either Plavix or aspirin due to her recurrent TIAs on top of her being on Eliquis. She verbalizes she does not want to be started on either and is not amenable to the higher risk of bleeding. She is not on statin. She says she was on simvastatin before and had some leg cramps and this was discontinued as the statin was thought to be contributing to it. She says that she does not think it was the statin because she continued to have on and off leg cramps despite being of the statin. She is willing to be restarted on a statin and see how she responds. Will start her on atorvastatin 40 mg. She will be placed on continuous telemetry. Will order for a carotid doppler. (2) Atrial fibrillation status post cardioversion Is this a current diagnosis for this admission?: Yes Plan: Currently in sinus rhythm. Will resume Eliquis and home meds. (3) Coronary artery disease Qualifiers: Coronary Disease-Associated Artery/Lesion type: [place] artery [place] vs. transplanted heart: [place] heart Associated angina: angina presence unspecified Qualified Code(s): I25.10 - Atherosclerotic heart disease of [place] coronary artery without angina pectoris Is this a current diagnosis for this admission?: Yes Plan: Stable. Not on aspirin or Plavix as mentioned above. - Time Time Spent: 30 to 50 Minutes
[2018-05-11] MEDS: DILTIAZEM HCL 120 MG CAP.SR.24H PO SCH ×2 (21:48→21:55)
[2018-05-11] MEDS: LISINOPRIL 10 MG TABLET PO SCH (21:48)
[2018-05-11] MEDS: APIXABAN 5 MG TABLET PO SCH (21:48)
--- NOTE | 2018-05-11 21:48 | EKG REPORT ---
SEVERITY:- ABNORMAL ECG - SINUS RHYTHM INCOMPLETE LEFT BUNDLE BRANCH BLOCK : Confirmed by: Maria Antonia Lewis MD 11-May-2018 21:47:57
[2018-05-11] MEDS ORDERED: ATORVASTATIN CALCIUM 40 MG TABLET PO SCH (22:00)
[2018-05-11 22:32] LABS: APPEARANCE,URINE CLEAR; BILIRUBIN,URINE NEGATIVE (NEGATIVE); COLOR,URINE STRAW; GLUCOSE, URINE NEGATIVE (NEGATIVE); KETONES,URINE NEGATIVE (NEGATIVE); LEUKOCYTE ESTERASE,URINE NEGATIVE (NEGATIVE); NITRITE,URINE NEGATIVE (NEGATIVE); PROTEIN,URINE NEGATIVE (NEGATIVE); URINE SPECIFIC GRAVITY 1.006; UROBILINOGEN,URINE NEGATIVE mg/dL (<2.0)
[2018-05-11] MEDS: ACETAMINOPHEN 325 MG TABLET PO PRN (22:40)
[2018-05-12] MEDS ORDERED: LATANOPROST 0.005% OPH SOLN 2.5 ML OU ONE (00:15)
[2018-05-12] MEDS: ACETAMINOPHEN 325 MG TABLET PO PRN ×2 (03:50→09:38)
--- NOTE | 2018-05-12 08:43 | RADIOLOGY REPORT (SQ) ---
EXAM DESCRIPTION: CAROTID DOPPLER COMPLETED DATE/TIME: 05/11/2018 7:34 pm REASON FOR STUDY: TIA COMPARISON: 03/06/2015 TECHNIQUE: Grayscale ultrasound, Doppler velocity and spectra, and color Doppler images acquired of the extra-cranial carotid and vertebral arteries. Images stored on PACS. LIMITATIONS: None. FINDINGS: RIGHT CAROTID CCA Velocities: Within normal limits. ICA Velocities Peak systolic 0.62 m/s. End diastolic 0.13 m/s. Proximal ICA/CCA peak systolic ratio 0.9. Spectra normal. No significant plaque. LEFT CAROTID CCA Velocities: Within normal limits. ICA Velocities Peak systolic 0.66 m/s. End diastolic 0.13 m/s. Proximal ICA/CCA peak systolic ratio 1.1. Spectra normal. No significant plaque. VERTEBRAL ARTERIES: Antegrade flow. Normal waveforms. SUBCLAVIAN ARTERIES: No finding. OTHER: No other significant finding. IMPRESSION: NO HEMODYNAMICALLY SIGNIFICANT STENOSIS. COMMENT: Quality ID #[id number]: Velocity criteria are extrapolated from the diameter data as defined by t he Society of Radiologists in Ultrasound Consensus Conference. Radiology 2003: 229; 340-346. TECHNICAL DOCUMENTATION: JOB ID: [id number] [employer]- All Rights Reserved Reading location - IP/workstation name: [email or web address]
[2018-05-12] MEDS: LISINOPRIL 10 MG TABLET PO SCH (09:10)
[2018-05-12] MEDS: DILTIAZEM HCL 120 MG CAP.SR.24H PO SCH (09:10)
[2018-05-12] MEDS: APIXABAN 5 MG TABLET PO SCH (09:10)
[2018-05-12] MEDS ORDERED: METOPROLOL SUCCINATE 25 MG TAB.SR.24H PO SCH (10:00)
[2018-05-12] MEDS ORDERED: SPIRONOLACTONE 25 MG TABLET PO SCH (10:00)
[2018-05-12 12:47] VITALS: BP 122/56
[2018-05-12] MEDS ORDERED: LATANOPROST 0.005% OPH SOLN 2.5 ML OU SCH (22:00)
== END 2018-05-12 14:48 | disposition home or self-care (01) ==
LOC: ER 15:52 → EH 17:36 → 3W 20:37
PROVIDERS: ADMIT Internal Medicine; ATTEND Internal Medicine
DX: G45.9 Transient cerebral ischemic attack, unspecified (principal); I48.91 Unspecified atrial fibrillation; I25.10 Atherosclerotic heart disease of native coronary artery without angina pectoris; R29.810 Facial weakness; E78.00 Pure hypercholesterolemia, unspecified; I10 Essential (primary) hypertension; Z82.3 Family history of stroke; Z79.02 Long term (current) use of antithrombotics/antiplatelets; Z82.49 Family history of ischemic heart disease and other diseases of the circulatory system; Z98.890 Other specified postprocedural states; I25.2 Old myocardial infarction; I44.7 Left bundle-branch block, unspecified; Z95.5 Presence of coronary angioplasty implant and graft; Z86.73 Personal history of transient ischemic attack (TIA), and cerebral infarction without residual deficits
CPT/HCPCS: 93005; 99285; 96360; 96361; 36415; 82553; 82550; 85025; 85610; 85730; 80053; 81001; 84484; 93880; 71045; 70450; 93010; G0378 ×3; A9270 ×8; J3490; J7030

== ENCOUNTER 2018-08-10 20:17 | Emergency (ER) | payer MEDICARE, MEDICAID ==
--- NOTE | 2018-08-10 20:45 | ER Document Report ---
ED Medical Screen (RME) - General Chief Complaint: Chest Pain Stated Complaint: CHEST PAINS Time Seen by Provider: 08/10/18 20:42 Primary Care Provider: SANTINO SIMS MD [Primary Care Provider] - Follow up as needed Mode of Arrival: Ambulatory Information source: Patient Notes: Patient presents emergency department with complaints of right-sided chest pain that radiates to her back. She reports symptoms started today. She reports she will have a dull hurt that radiates to her back last for about 5 minutes and then goes away. She reports the symptoms occur every 1-2 hours. Denies other symptoms such as fever vomiting diarrhea. Patient has history of MT. History of ablation in December. Also has history of stroke. Is taking Eliquis. I have greeted and performed a rapid initial assessment of this patient. A comprehensive ED assessment and evaluation of the patient, analysis of test results and completion of the medical decision making process will be conducted by additional ED providers. Dictation of this chart was performed using voice recognition software; therefore, there may be some unintended grammatical errors. TRAVEL OUTSIDE OF THE [place] IN LAST 30 DAYS: No - Related Data Allergies/Adverse Reactions: No Known Allergies Allergy (Verified 08/01/17 18:52) Past Medical History - Social History Chew tobacco use (# tins/day): No Frequency of alcohol use: None Drug Abuse: None - Past Medical History Cardiac Medical History: Reports: Hx Atrial Fibrillation, Hx Coronary Artery Disease, Hx Heart Attack, Hx Hypercholesterolemia, Hx Hypertension Pulmonary Medical History: Reports: Hx Pneumonia - H/O A WHILE AGO Denies: Hx Asthma, Hx Bronchitis, Hx COPD Neurological Medical History: Reports: Hx Cerebrovascular Accident. Denies: Hx Seizures Renal/ Medical History: Reports: Hx Ovarian Cysts. Denies: Hx Peritoneal Dialysis GI Medical History: Reports: Hx Gastroesophageal Reflux Disease Musculoskeltal Medical History: Reports Hx Arthritis - BACK, SHOULDERS, HIPS, LEGS, Reports Hx Musculoskeletal Trauma Psychiatric Medical History: Denies: Hx Depression Traumatic Medical History: Reports: Hx Spine Fracture Past Surgical History: Reports: Hx Cardiac Catheterization, Hx Cardiac Surgery - ablasion, Hx Coronary Stent - 5 stents and 4 vessels. Last stent was over 12 years ago., Hx Gynecologic Surgery - Ovarian cyst surgery, Hx Hysterectomy, Hx Orthopedic Surgery - Immunizations Immunizations up to date: No Hx Diphtheria, Pertussis, Tetanus Vaccination: No Influenza Administration Date for 12/2016 - 05/2017 Season: 12/16/16 Physical Exam - Vital signs Vitals: Temp Pulse Resp BP Pulse Ox 98.2 F 74 16 152/71 H 99 08/10/18 20:36 08/10/18 20:36 08/10/18 20:36 08/10/18 20:36 08/10/18 20:36 Course - Vital Signs Vital signs: Temp Pulse Resp BP Pulse Ox 98.2 F 74 16 152/71 H 99 08/10/18 20:36 08/10/18 20:36 08/10/18 20:36 08/10/18 20:36 08/10/18 20:36 Doctor's Discharge - Discharge Referrals: SANTINO SIMS MD [Primary Care Provider] - Follow up as needed
--- NOTE | 2018-08-10 21:30 | RADIOLOGY REPORT (SQ) ---
EXAM DESCRIPTION: [facility]: XR CHEST 2 VIEWS Views: 2 CLINICAL HISTORY: 77 years Female, cp COMPARISON: 05/11/2018 FINDINGS: The lungs are somewhat hyperinflated but clear. No pneumothorax or significant pleural effusion. There is mild biapical scarring. Cardiomediastinal silhouette is within normal limits. Bony structures are unremarkable for age. IMPRESSION: 1. Hyperinflation and apical scarring, suggesting COPD. 2. No focal acute infiltrates
[2018-08-10 21:37] LABS: ABSOLUTE EOSINOPHILS # (AUTO) 0.2 10^3/uL (0.0-0.6); ABSOLUTE LYMPHOCYTES (AUTO) 2.1 10^3/uL (0.5-4.7); ABSOLUTE NEUT (AUTO) 5.2 10^3/uL (1.7-8.2); BASOPHILS % (AUTO) 0.5 % (0-2); EOSINOPHILS % (AUTO) 1.8 % (0-6); HEMATOCRIT 35.8 % (36.0-47.0); HEMOGLOBIN 12.2 g/dL (12.0-15.5); LYMPHOCYTES % (AUTO) 24.5 % (13-45); MEAN CORPUSCULAR HEMOGLOBIN 32.5 pg (27.0-33.4); MEAN CORPUSCULAR VOLUME 96 fl (80-97); MONOCYTES % (AUTO) 11.5 % (3-13); PLATELET COUNT 231 10^3/uL (150-450); RED BLOOD COUNT 3.74 10^6/uL (3.72-5.28); RED CELL DISTRIBUTION WIDTH 13.3 % (11.5-14.0); SEGMENTED NEUTROPHILS % (AUTO) 61.7 % (42-78); TOTAL CELLS COUNTED % (AUTO) 100 %; WHITE BLOOD COUNT 8.4 10^3/uL (4.0-10.5)
[2018-08-10 22:02] LABS: APPEARANCE,URINE SLIGHTLY-CLOUDY; BILIRUBIN,URINE NEGATIVE (NEGATIVE); COLOR,URINE YELLOW; GLUCOSE, URINE NEGATIVE (NEGATIVE); KETONES,URINE NEGATIVE (NEGATIVE); LEUKOCYTE ESTERASE,URINE LARGE (NEGATIVE); NITRITE,URINE NEGATIVE (NEGATIVE); PROTEIN,URINE NEGATIVE (NEGATIVE); URINE SPECIFIC GRAVITY 1.012; UROBILINOGEN,URINE NEGATIVE mg/dL (<2.0)
[2018-08-10 22:03] LABS: ALANINE AMINOTRANSFERASE 14 U/L (9-52); ALBUMIN 4.3 g/dL (3.5-5.0); ALKALINE PHOSPHATASE 50 U/L (38-126); ANION GAP 9 (5-19); ASPARTATE AMINO TRANSFERASE 19 U/L (14-36); BILIRUBIN,DIRECT 0.5 mg/dL (0.0-0.4); BILIRUBIN,TOTAL 0.5 mg/dL (0.2-1.3); BLOOD UREA NITROGEN 23 mg/dL (7-20); CALCIUM 10.2 mg/dL (8.4-10.2); CARBON DIOXIDE 27 mmol/L (22-30); CHLORIDE 106 mmol/L (98-107); CREATINE KINASE 69 U/L (30-135); GLUCOSE 94 mg/dL (75-110); LIPASE 142.8 U/L (23-300); POTASSIUM 4.3 mmol/L (3.6-5.0); SODIUM 141.9 mmol/L (137-145); TOTAL PROTEIN 7.2 g/dL (6.3-8.2)
--- NOTE | 2018-08-10 22:10 | ER Document Report ---
ED Cardiac - General Chief Complaint: Chest Pain Stated Complaint: CHEST PAINS Time Seen by Provider: 08/10/18 20:42 Primary Care Provider: ESPINOZA GAVIRIA MD [ACTIVE STAFF] - 08/11/18 Mode of Arrival: Ambulatory Notes: Patient is a 77-year-old female that comes emergency department with chief complaint of chest pain, she states the pain is located mainly on the right side, feels like it radiates from the right side towards the right breast, happens intermittently and lasts several minutes and resolves on its own. Nothing makes it better or improves it. Denies shortness of breath, dizziness, palpitations, nausea/vomiting, or other locations of pain. Past medical history includes [place] with multiple stents, A. fib on Eliquis with recent ablation at the end of last year, hypertension, hyperlipidemia. She follows with Dr. Gaviria cardiology, states that she thinks her last heart catheterization was in December. TRAVEL OUTSIDE OF THE [place] IN LAST 30 DAYS: No - Related Data Allergies/Adverse Reactions: No Known Allergies Allergy (Verified 08/01/17 18:52) Past Medical History - General Information source: Patient - Social History Smoking Status: Never Smoker Chew tobacco use (# tins/day): No Frequency of alcohol use: None Drug Abuse: None Lives with: Family Family History: CAD, CVA, Hyperlipidemia, Hypertension, Malignancy Patient has suicidal ideation: No Patient has homicidal ideation: No - Past Medical History Cardiac Medical History: Reports: Hx Atrial Fibrillation, Hx Coronary Artery Disease, Hx Heart Attack, Hx Hypercholesterolemia, Hx Hypertension Pulmonary Medical History: Reports: Hx Pneumonia - H/O A WHILE AGO Denies: Hx Asthma, Hx Bronchitis, Hx COPD Neurological Medical History: Reports: Hx Cerebrovascular Accident. Denies: Hx Seizures Renal/ Medical History: Reports: Hx Ovarian Cysts. Denies: Hx Peritoneal Dialysis GI Medical History: Reports: Hx Gastroesophageal Reflux Disease Musculoskeletal Medical History: Reports Hx Arthritis - BACK, SHOULDERS, HIPS, LEGS, Reports Hx Musculoskeletal Trauma Psychiatric Medical History: Denies: Hx Depression Traumatic Medical History: Reports: Hx Spine Fracture Past Surgical History: Reports: Hx Cardiac Catheterization, Hx Cardiac Surgery - ablasion, Hx Coronary Stent - 5 stents and 4 vessels. Last stent was over 12 years ago., Hx Gynecologic Surgery - Ovarian cyst surgery, Hx Hysterectomy, Hx Orthopedic Surgery - Immunizations Immunizations up to date: No Hx Diphtheria, Pertussis, Tetanus Vaccination: No Hx Pneumococcal Vaccination: 03/10/09 Review of Systems - Review of Systems Constitutional: No symptoms reported EENT: No symptoms reported Cardiovascular: See HPI Respiratory: No symptoms reported Gastrointestinal: No symptoms reported Genitourinary: No symptoms reported Female Genitourinary: No symptoms reported Musculoskeletal: No symptoms reported Skin: No symptoms reported Hematologic/Lymphatic: No symptoms reported Neurological/Psychological: No symptoms reported Physical Exam - Vital signs Vitals: Temp Pulse Resp BP Pulse Ox 98.2 F 74 16 152/71 H 99 08/10/18 20:36 08/10/18 20:36 08/10/18 20:36 08/10/18 20:36 08/10/18 20:36 - Notes Notes: GENERAL: Alert, interacts well. No acute distress. HEAD: Normocephalic, atraumatic. EYES: Pupils equal, round, and reactive to light. Extraocular movements intact. ENT: Oral mucosa moist, tongue midline. Oropharynx unremarkable. Airway patent. NECK: Full range of motion. Supple. Trachea midline. LUNGS: Clear to auscultation bilaterally, no wheezes, rales, or rhonchi. No respiratory distress. HEART: Regular rate and rhythm. No murmur ABDOMEN: Soft, non-tender. Non-distended. Bowel sounds present in all 4 quadrants. GENITOURINARY: Deferred EXTREMITIES: Moves all 4 extremities spontaneously. No edema, normal radial and dorsalis pedis pulses bilaterally. No cyanosis. BACK: no cervical, thoracic, lumbar midline tenderness. No saddle anesthesia, normal distal neurovascular exam. Moves all extremities in full range of motion. NEUROLOGICAL: Alert and oriented x3. Normal speech. Cranial nerves II through XII grossly intact. PSYCH: Normal affect, normal mood. SKIN: Warm, dry, normal turgor. No rashes or lesions noted. Course - Re-evaluation Re-evalutation: Chest x-ray unremarkable. Initial troponin is negative. CBC unremarkable. Chemistry showing mildly elevated creatinine of 1.4, patient was given some IV fluids. Urine indicates urinary tract infection. Patient is currently asymptomatic, reporting right sided and right breast pain, this is currently not present. Patient does have multiple risk factors including age, history of CAD and stents. However she is requesting to leave, she states that she felt like she had "an air bubble", passed this, and has been asymptomatic since. She also has very atypical symptoms. She did agree however to cycling her troponin and then I will speak to her manager security. Patient is satisfied with this plan. She was treated with Keflex, urine culture placed. 08/11/18 01:40 I called and spoke with Dr. Gaviria, patient's manager security. I discussed patient's work-up, symptoms, evaluation. He recommends that patient can be treated at home for UTI, she needs to call his office at 11 AM to be seen in very close follow-up, and she must return if she worsens in any way. I discussed this with patient and family, they are very satisfied with this plan, stable at time of discharge. - Vital Signs Vital signs: Temp Pulse Resp BP Pulse Ox 98.2 F 74 16 152/71 H 99 08/10/18 20:36 08/10/18 20:36 08/10/18 20:36 08/10/18 20:36 08/10/18 20:36 - Laboratory Result Diagrams: 08/10/18 21:20 08/10/18 21:20 Laboratory results interpreted by me: 08/10/18 08/10/18 08/10/18 21:20 21:20 21:30 Hct 35.8 L BUN 23 H Creatinine 1.43 H Est GFR ( Amer) 43 L Est GFR (Non-Af Amer) 36 L Direct Bilirubin 0.5 H Ur Leukocyte Esterase LARGE H Discharge - Discharge Clinical Impression: Right-sided chest pain Urinary tract infection Qualifiers: Urinary tract infection type: site unspecified Hematuria presence: without hematuria Qualified Code(s): N39.0 - Urinary tract infection, site not specified Condition: Stable Disposition: HOME, SELF-CARE Additional Instructions: Your work-up does indicate a urinary tract infection. Your remaining work-up does not show any concerning abnormalities at this time. Take the antibiotics as prescribed. I spoke with Dr. Gaviria (Dr. Jose dawson, please contact his office at 11 AM tomorrow to set up your close follow-up. Return if you worsen including fever, vomiting, passing out, returned or increased pain, difficulty breathing, or any other concerning symptoms. Prescriptions: Cephalexin Monohydrate [Keflex 500 mg Capsule] 500 mg PO BID #14 capsule Referrals: ESPINOZA GAVIRIA MD [ACTIVE STAFF] - 08/11/18
[2018-08-10] MEDS ORDERED: CEPHALEXIN 500 MG CAPSULE PO ONE (22:21)
[2018-08-10] MEDS ORDERED: NORMAL SALINE 500 ML IV ONE (22:21)
[2018-08-10] MEDS ORDERED: ACETAMINOPHEN 325 MG TABLET PO ONE (23:50)
[2018-08-10] MEDS ORDERED: ASPIRIN 81 MG TABLET, CHEWABLE PO ONE (23:51)
[2018-08-11] MEDS ORDERED: ACETAMINOPHEN 325 MG TABLET PO ONE (00:04)
[2018-08-11 02:08] VITALS: BP 137/69
--- NOTE | 2018-08-11 08:03 | EKG REPORT ---
SEVERITY:- ABNORMAL ECG - SINUS RHYTHM INCOMPLETE LEFT BUNDLE BRANCH BLOCK : Confirmed by: Gian Stalpes MD 11-Aug-2018 08:03:12
== END 2018-08-11 02:18 | disposition home or self-care (01) ==
LOC: ER 20:17
DX: R07.9 Chest pain, unspecified (principal); N39.0 Urinary tract infection, site not specified; I25.2 Old myocardial infarction; I10 Essential (primary) hypertension; I25.10 Atherosclerotic heart disease of native coronary artery without angina pectoris; I48.91 Unspecified atrial fibrillation; Z79.02 Long term (current) use of antithrombotics/antiplatelets; Z95.5 Presence of coronary angioplasty implant and graft
CPT/HCPCS: 93005; 99284; 36415; 87086; 82550; 83690; 85025; 87088; 80053; 81001; 84484; 87186; 71046; 93010; A9270 ×3; J7040

== ENCOUNTER 2018-08-19 12:45 | Emergency (ER) | payer MEDICARE, MEDICAID ==
--- NOTE | 2018-08-19 13:15 | ER Document Report ---
ED Medical Screen (RME) - General Chief Complaint: General Weakness Stated Complaint: OFF BALANCE Time Seen by Provider: 08/19/18 13:13 Primary Care Provider: SANTINO SIMS MD [Primary Care Provider] - Follow up as needed Mode of Arrival: Wheelchair Information source: Patient Notes: 77-year-old female presents to ED for "feeling off balance "she states that her blood pressures been up and down. She states she was seen in the emergency room about a week ago for chest pain but she is not having any chest pain at this time. He states she has seen Dr. Ellis who has scheduled her for an echocardiogram but does not know when that will be. Patient is alert oriented respirations regular and unlabored speaking in full sentences walks with a steady gait. I have greeted and performed a rapid initial assessment of this patient. A comprehensive ED assessment and evaluation of the patient, analysis of test results and completion of medical decision making process will be conducted by an additional ED providers. Dictation of this chart was performed using voice recognition software; therefore, there may be some unintended grammatical errors. TRAVEL OUTSIDE OF THE [place] IN LAST 30 DAYS: No - Related Data Allergies/Adverse Reactions: No Known Allergies Allergy (Verified 08/19/18 12:46) Past Medical History - Social History Chew tobacco use (# tins/day): Yes - snuff Frequency of alcohol use: None Drug Abuse: None - Past Medical History Cardiac Medical History: Reports: Hx Atrial Fibrillation, Hx Coronary Artery Disease, Hx Heart Attack, Hx Hypercholesterolemia, Hx Hypertension Pulmonary Medical History: Reports: Hx Pneumonia - H/O A WHILE AGO Denies: Hx Asthma, Hx Bronchitis, Hx COPD Neurological Medical History: Reports: Hx Cerebrovascular Accident. Denies: Hx Seizures Renal/ Medical History: Reports: Hx Ovarian Cysts. Denies: Hx Peritoneal Dialysis GI Medical History: Reports: Hx Gastroesophageal Reflux Disease Musculoskeltal Medical History: Reports Hx Arthritis - BACK, SHOULDERS, HIPS, LEGS, Reports Hx Musculoskeletal Trauma Psychiatric Medical History: Denies: Hx Depression Traumatic Medical History: Reports: Hx Spine Fracture Past Surgical History: Reports: Hx Cardiac Catheterization, Hx Cardiac Surgery - ablasion, Hx Coronary Stent - 5 stents and 4 vessels. Last stent was over 12 years ago., Hx Gynecologic Surgery - Ovarian cyst surgery, Hx Hysterectomy, Hx Orthopedic Surgery - Immunizations Immunizations up to date: No Hx Diphtheria, Pertussis, Tetanus Vaccination: No Influenza Administration Date for 12/2016 - 05/2017 Season: 12/16/16 Physical Exam - Vital signs Vitals: Temp Pulse Resp BP Pulse Ox 98.1 F 70 15 162/72 H 95 08/19/18 12:51 08/19/18 12:51 08/19/18 12:51 08/19/18 12:51 08/19/18 12:51 Course - Vital Signs Vital signs: Temp Pulse Resp BP Pulse Ox 98.1 F 70 15 162/72 H 95 08/19/18 12:51 08/19/18 12:51 08/19/18 12:51 08/19/18 12:51 08/19/18 12:51 Doctor's Discharge - Discharge Referrals: SANTINO SIMS MD [Primary Care Provider] - Follow up as needed
[2018-08-19 14:04] LABS: APPEARANCE,URINE CLEAR; BILIRUBIN,URINE NEGATIVE (NEGATIVE); GLUCOSE, URINE NEGATIVE (NEGATIVE); KETONES,URINE NEGATIVE (NEGATIVE); LEUKOCYTE ESTERASE,URINE NEGATIVE (NEGATIVE); NITRITE,URINE NEGATIVE (NEGATIVE); PROTEIN,URINE NEGATIVE (NEGATIVE); URINE SPECIFIC GRAVITY 1.004; UROBILINOGEN,URINE NEGATIVE mg/dL (<2.0)
[2018-08-19 14:05] LABS: ABSOLUTE EOSINOPHILS # (AUTO) 0.1 10^3/uL (0.0-0.6); ABSOLUTE LYMPHOCYTES (AUTO) 1.5 10^3/uL (0.5-4.7); ABSOLUTE MONOCYTES (AUTO) 0.6 10^3/uL (0.1-1.4); ABSOLUTE NEUT (AUTO) 4.7 10^3/uL (1.7-8.2); BASOPHILS % (AUTO) 0.5 % (0-2); EOSINOPHILS % (AUTO) 1.5 % (0-6); HEMATOCRIT 37.5 % (36.0-47.0); LYMPHOCYTES % (AUTO) 21.4 % (13-45); MEAN CORPUSCULAR HGB CONC 34.5 g/dL (32.0-36.0); MEAN CORPUSCULAR VOLUME 96 fl (80-97); MONOCYTES % (AUTO) 9.2 % (3-13); PLATELET COUNT 235 10^3/uL (150-450); RED BLOOD COUNT 3.93 10^6/uL (3.72-5.28); RED CELL DISTRIBUTION WIDTH 13.4 % (11.5-14.0); SEGMENTED NEUTROPHILS % (AUTO) 67.4 % (42-78); TOTAL CELLS COUNTED % (AUTO) 100 %
[2018-08-19 14:07] LABS: COLOR,URINE STRAW
[2018-08-19 14:17] LABS: ALANINE AMINOTRANSFERASE 17 U/L (9-52); ALBUMIN 4.7 g/dL (3.5-5.0); ALKALINE PHOSPHATASE 56 U/L (38-126); ANION GAP 9 (5-19); ASPARTATE AMINO TRANSFERASE 21 U/L (14-36); BILIRUBIN,DIRECT 0.5 mg/dL (0.0-0.4); BILIRUBIN,TOTAL 0.9 mg/dL (0.2-1.3); BLOOD UREA NITROGEN 20 mg/dL (7-20); CALCIUM 10.6 mg/dL (8.4-10.2); CARBON DIOXIDE 27 mmol/L (22-30); CHLORIDE 107 mmol/L (98-107); GLUCOSE 97 mg/dL (75-110); POTASSIUM 4.8 mmol/L (3.6-5.0); SODIUM 142.7 mmol/L (137-145); TOTAL PROTEIN 7.9 g/dL (6.3-8.2)
--- NOTE | 2018-08-19 16:12 | ER Document Report ---
ED Dizziness/Weakness - General Chief Complaint: General Weakness Stated Complaint: OFF BALANCE Time Seen by Provider: 08/19/18 13:13 Primary Care Provider: SANTINO SIMS MD [Primary Care Provider] - Follow up as needed Mode of Arrival: Wheelchair Notes: Pleasant 77-year-old female with history of paroxysmal atrial fibrillation status post ablation in 2018 presents to the emergency department with chief complaint of feeling unstable/off-balance since this morning. Concerned that her blood pressure is "up". She said that she is dizzy every day but this morning was acutely worse and she frequently checked her blood pressure and it got as high as 165/80 prompting her concern to get seen in the emergency department. She try to make an appoint with her primary doctor but was unable to get incision came to the emergency department. She states that she is TRAVEL OUTSIDE OF THE [place] IN LAST 30 DAYS: No - Related Data Allergies/Adverse Reactions: No Known Allergies Allergy (Verified 08/19/18 12:46) Past Medical History - General Information source: Patient - Social History Smoking Status: Unknown if Ever Smoked Chew tobacco use (# tins/day): Yes - snuff Frequency of alcohol use: None Drug Abuse: None Family History: CAD, CVA, Hyperlipidemia, Hypertension, Malignancy Patient has suicidal ideation: No Patient has homicidal ideation: No - Past Medical History Cardiac Medical History: Reports: Hx Atrial Fibrillation, Hx Coronary Artery Disease, Hx Heart Attack, Hx Hypercholesterolemia, Hx Hypertension Pulmonary Medical History: Reports: Hx Pneumonia - H/O A WHILE AGO Denies: Hx Asthma, Hx Bronchitis, Hx COPD Neurological Medical History: Reports: Hx Cerebrovascular Accident. Denies: Hx Seizures Renal/ Medical History: Reports: Hx Ovarian Cysts. Denies: Hx Peritoneal Dialysis GI Medical History: Reports: Hx Gastroesophageal Reflux Disease Musculoskeletal Medical History: Reports Hx Arthritis - BACK, SHOULDERS, HIPS, LEGS, Reports Hx Musculoskeletal Trauma Psychiatric Medical History: Denies: Hx Depression Traumatic Medical History: Reports: Hx Spine Fracture Past Surgical History: Reports: Hx Cardiac Catheterization, Hx Cardiac Surgery - ablasion, Hx Coronary Stent - 5 stents and 4 vessels. Last stent was over 12 years ago., Hx Gynecologic Surgery - Ovarian cyst surgery, Hx Hysterectomy, Hx Orthopedic Surgery - Immunizations Immunizations up to date: No Hx Diphtheria, Pertussis, Tetanus Vaccination: No Hx Pneumococcal Vaccination: 03/10/09 Review of Systems - Review of Systems Constitutional: See HPI EENT: See HPI Cardiovascular: See HPI Respiratory: See HPI Gastrointestinal: See HPI Genitourinary: See HPI Female Genitourinary: No symptoms reported Musculoskeletal: No symptoms reported Skin: No symptoms reported Hematologic/Lymphatic: No symptoms reported Neurological/Psychological: See HPI Physical Exam - Vital signs Vitals: Temp Pulse Resp BP Pulse Ox 98.1 F 70 15 162/72 H 95 08/19/18 12:51 08/19/18 12:51 08/19/18 12:51 08/19/18 12:51 08/19/18 12:51 - Notes Notes: PHYSICAL EXAMINATION: Reviewed vital signs and charting by RN GENERAL: Alert, interacts well. No acute distress. HEAD: Normocephalic, atraumatic. EYES: Pupils equal and round. Extraocular movements intact. ENT: Oral mucosa moist, tongue midline. NECK: Full range of motion. Trachea midline. LUNGS: Clear to auscultation bilaterally, no wheezes, rales, or rhonchi. No respiratory distress. HEART: Regular rate and rhythm. No murmur ABDOMEN: soft, non-tender. No distention. Bowel sounds present EXTREMITIES: Moves all 4 extremities spontaneously. No edema, No cyanosis. NEURO: A &O X 3, normal speech, normal gailt, PERRL, EOMI, SILT, follows commands in all 4 extremities, no gross abnormalities of cranial nerves, no focal neuro deficits, no pronator drift, [id number] testing normal, rapid alternating hand movements normal, lens shaper grinder strength 5/5 bilateral, 5/5 strength in both proximal and distal upper and lower extremities PSYCH: Normal affect, normal mood. SKIN: Warm, dry, normal turgor. No rashes or lesions noted. Course - Re-evaluation Re-evalutation: 08/19/18 16:15 Well-appearing, patient states she feels much better from this morning. Her chief concern is the fluctuation in her blood pressure and I explained to her that we do not treat asymptomatic hypertension. She says she is dizzy every day but she was a little more so this morning I think the increase in her blood pressure exacerbated her concerns. Lab work unremarkable. No UTI. At this time her symptoms have resolved and she has a completely normal neurologic exam, no focal neuro deficits. No clinical indication for imaging of her head as she had no fall, no LOC. She is stable for discharge. 08/19/18 16:16 - Vital Signs Vital signs: Temp Pulse Resp BP Pulse Ox 98.1 F 70 15 162/72 H 95 08/19/18 12:51 08/19/18 12:51 08/19/18 12:51 08/19/18 12:51 08/19/18 12:51 - Laboratory Result Diagrams: 08/19/18 13:39 08/19/18 13:39 Laboratory results interpreted by me: 08/19/18 13:39 Est GFR ( Amer) 52 L Est GFR (Non-Af Amer) 43 L Calcium 10.6 H Direct Bilirubin 0.5 H Discharge - Discharge Clinical Impression: Dizziness Condition: Good Disposition: HOME, SELF-CARE Additional Instructions: You were seen today for lightheadedness/dizziness. The exact cause of your symptoms is unclear but your workup here is reassuring without any concerning findings. Please follow closely with your primary care physician in the next 1- 3 days. Return if you pass out, have additional episodes of lightheadedness, develop weakness/numbness, have persistent vomiting, chest pain, shortness of breath or any other symptoms that are concerning to you Referrals: SANTINO SIMS MD [Primary Care Provider] - Follow up as needed
[2018-08-19 17:14] VITALS: BP 150/73
== END 2018-08-19 17:13 | disposition home or self-care (01) ==
LOC: ER 12:45
DX: R42 Dizziness and giddiness (principal); I10 Essential (primary) hypertension; I25.10 Atherosclerotic heart disease of native coronary artery without angina pectoris; Z95.5 Presence of coronary angioplasty implant and graft; Z72.0 Tobacco use
CPT/HCPCS: 36415; 80053; 81001; 84484; 85025; 99284

== ENCOUNTER 2018-09-28 09:56 | Emergency (ER) | payer MEDICARE, MEDICAID ==
--- NOTE | 2018-09-28 10:19 | ER Document Report ---
ED Medical Screen (RME) - General Chief Complaint: Palpitations Stated Complaint: PALPITATIONS Time Seen by Provider: 09/28/18 10:12 Primary Care Provider: SANTINO SIMS MD [Primary Care Provider] - Follow up as needed Mode of Arrival: Ambulatory Information source: Patient Notes: Patient is a 77-year-old female with past medical history of A. fib presenting with chief complaints of fatigue, weakness and a "tremor in the chest". Patient reports she had a cardiac ablation done in December 2017 at [place]. Patient reports the complaints today have been ongoing for approximately 3 days intermittently. She denies any chest pain. She reports her executive chairman is Dr. Lewis, states he told her to come in this morning. Exam: Lung sounds clear and equal bilaterally. Skin warm and dry. Heart sounds S1-S2 present. I have greeted and performed a rapid initial assessment of this patient. A comprehensive ED assessment and evaluation of the patient, analysis of test results and completion of the medical decision making process will be conducted by additional ED providers. I have specifically instructed the patient or family members with the patient to immediately return to any nursing staff should anything change in the patient's condition or with their chief complaint. This medical record was dictated with voice recognizing software. There may be grammatical, syntax errors that are unintended. TRAVEL OUTSIDE OF THE [place] IN LAST 30 DAYS: No - Related Data Allergies/Adverse Reactions: No Known Allergies Allergy (Verified 09/28/18 09:57) Past Medical History - Social History Frequency of alcohol use: None Drug Abuse: None - Past Medical History Cardiac Medical History: Reports: Hx Atrial Fibrillation, Hx Coronary Artery Disease, Hx Heart Attack, Hx Hypercholesterolemia, Hx Hypertension Pulmonary Medical History: Reports: Hx Pneumonia - H/O A WHILE AGO Denies: Hx Asthma, Hx Bronchitis, Hx COPD Neurological Medical History: Reports: Hx Cerebrovascular Accident. Denies: Hx Seizures Renal/ Medical History: Reports: Hx Ovarian Cysts. Denies: Hx Peritoneal Dialysis GI Medical History: Reports: Hx Gastroesophageal Reflux Disease Musculoskeltal Medical History: Reports Hx Arthritis - BACK, SHOULDERS, HIPS, LEGS, Reports Hx Musculoskeletal Trauma Psychiatric Medical History: Denies: Hx Depression Traumatic Medical History: Reports: Hx Spine Fracture Past Surgical History: Reports: Hx Cardiac Catheterization, Hx Cardiac Surgery - ablasion, Hx Coronary Stent - 5 stents and 4 vessels. Last stent was over 12 years ago., Hx Gynecologic Surgery - Ovarian cyst surgery, Hx Hysterectomy, Hx Orthopedic Surgery - Immunizations Immunizations up to date: No Hx Diphtheria, Pertussis, Tetanus Vaccination: No Influenza Administration Date for 12/2016 - 05/2017 Season: 12/16/16 Physical Exam - Vital signs Vitals: Temp Pulse Resp BP Pulse Ox 97.9 F 109 H 18 110/69 98 09/28/18 10:10 09/28/18 10:10 09/28/18 10:10 09/28/18 10:10 09/28/18 10:10 Course - Vital Signs Vital signs: Temp Pulse Resp BP Pulse Ox 97.9 F 109 H 18 110/69 98 09/28/18 10:10 09/28/18 10:10 09/28/18 10:10 09/28/18 10:10 09/28/18 10:10 Doctor's Discharge - Discharge Referrals: SANTINO SIMS MD [Primary Care Provider] - Follow up as needed
--- NOTE | 2018-09-28 10:59 | RADIOLOGY REPORT (SQ) ---
EXAM DESCRIPTION: CHEST SINGLE VIEW COMPLETED DATE/TIME: 09/28/2018 10:44 am REASON FOR STUDY: palpitations COMPARISON: 08/10/2018. EXAM PARAMETERS: NUMBER OF VIEWS: One view. TECHNIQUE: Single frontal radiographic view of the chest acquired. RADIATION DOSE: NA LIMITATIONS: None. FINDINGS: LUNGS AND PLEURA: Hyperinflation consistent with COPD. Bilateral apical pleural thickenin g. MEDIASTINUM AND HILAR STRUCTURES: No masses. Contour normal. HEART AND VASCULAR STRUCTURES: The heart pulmonary vasculature are normal. BONES: No acute findings. HARDWARE: None in the chest. OTHER: No other significant finding. IMPRESSION: NO SIGNIFICANT INTERVAL CHANGE. TECHNICAL DOCUMENTATION: JOB ID: [id number] [employer]- All Rights Reserved Reading location - IP/workstation name: [email or web address]
--- NOTE | 2018-09-28 11:17 | ER Document Report ---
ED Cardiac - General Chief Complaint: Palpitations Stated Complaint: PALPITATIONS Time Seen by Provider: 09/28/18 10:12 Primary Care Provider: SANTINO SIMS MD [Primary Care Provider] - Follow up as needed Mode of Arrival: Ambulatory Information source: Patient TRAVEL OUTSIDE OF THE [place] IN LAST 30 DAYS: No - HPI Patient complains to provider of: Palpitations - Pt. with h/o atrial fib/flutter s/p ablation last year in [place] with c/o palpitations and weakness for the past 1-[address] Ellis earlier this am and was told to go to ED for evaluation. She denies CP. - Related Data Allergies/Adverse Reactions: No Known Allergies Allergy (Verified 09/28/18 09:57) Past Medical History - General Information source: Patient - Social History Smoking Status: Never Smoker Frequency of alcohol use: None Drug Abuse: None Family History: CAD, CVA, Hyperlipidemia, Hypertension, Malignancy Patient has suicidal ideation: No Patient has homicidal ideation: No - Past Medical History Cardiac Medical History: Reports: Hx Atrial Fibrillation, Hx Coronary Artery Disease, Hx Heart Attack, Hx Hypercholesterolemia, Hx Hypertension Pulmonary Medical History: Reports: Hx Pneumonia - H/O A WHILE AGO Denies: Hx Asthma, Hx Bronchitis, Hx COPD Neurological Medical History: Reports: Hx Cerebrovascular Accident. Denies: Hx Seizures Renal/ Medical History: Reports: Hx Ovarian Cysts. Denies: Hx Peritoneal Dialysis GI Medical History: Reports: Hx Gastroesophageal Reflux Disease Musculoskeletal Medical History: Reports Hx Arthritis - BACK, SHOULDERS, HIPS, LEGS, Reports Hx Musculoskeletal Trauma Psychiatric Medical History: Denies: Hx Depression Traumatic Medical History: Reports: Hx Spine Fracture Past Surgical History: Reports: Hx Cardiac Catheterization, Hx Cardiac Surgery - ablasion, Hx Coronary Stent - 5 stents and 4 vessels. Last stent was over 12 years ago., Hx Gynecologic Surgery - Ovarian cyst surgery, Hx Hysterectomy, Hx Orthopedic Surgery - Immunizations Immunizations up to date: No Hx Diphtheria, Pertussis, Tetanus Vaccination: No Hx Pneumococcal Vaccination: 03/10/09 Review of Systems - Review of Systems Constitutional: See HPI, Weakness EENT: No symptoms reported Cardiovascular: See HPI, Palpitations Respiratory: No symptoms reported Gastrointestinal: No symptoms reported Musculoskeletal: No symptoms reported Neurological/Psychological: No symptoms reported -: Yes All other systems reviewed and negative Physical Exam - Vital signs Vitals: Temp Pulse Resp BP Pulse Ox 97.9 F 109 H 18 110/69 98 09/28/18 10:10 09/28/18 10:10 09/28/18 10:10 09/28/18 10:10 09/28/18 10:10 - General General appearance: Appears well In distress: None - HEENT Head: Normocephalic Pupils: PERRL Mouth/Lips: Normal Mucous membranes: Normal Pharynx: Normal Neck: Normal - Respiratory Respiratory status: No respiratory distress Breath sounds: Normal - Cardiovascular Rhythm: Irregularly irregular Heart sounds: Normal auscultation Murmur: No - Abdominal Inspection: Normal Tenderness: Nontender - Extremities General upper extremity: Normal inspection General lower extremity: Normal inspection - Neurological Neuro grossly intact: Yes Cognition: Normal Orientation: AAOx4 Course - Re-evaluation Re-evalutation: 09/28/18 12:15 pt. feels much better at reevaluation -- will call Dr. Ellis for consult - Vital Signs Vital signs: Temp Pulse Resp BP Pulse Ox 97.9 F 109 H 18 110/69 98 09/28/18 10:10 09/28/18 10:10 09/28/18 10:10 09/28/18 10:10 09/28/18 10:10 - Laboratory Result Diagrams: 09/28/18 11:05 09/28/18 11:05 Laboratory results interpreted by me: 09/28/18 11:05 Est GFR ( Amer) 52 L Est GFR (Non-Af Amer) 43 L Calcium 10.6 H - EKG Interpretation by Me Rate: Normal Rhythm: A.Fib, A.Flutter - atrial fib/flutter with incomplete LBBB and no acute change - Consults t.c. dr. Ellis Time consulted: 12:16 Consulted provider: follow-up in office Discharge - Discharge Clinical Impression: Palpitations Condition: Stable Disposition: HOME, SELF-CARE Instructions: Palpitations (Irregular or Rapid Heartrate) ([facility]) Additional Instructions: rest, take meds as prescribed, return if worse Prescriptions: Digoxin [Lanoxin 0.125 mg Tablet] 0.125 mg PO DAILY #60 tablet Diltiazem HCl [Cardizem Cd 120 mg Capsule] 1 cap.sr PO DAILY #60 cap.sr Referrals: ZASTROW,SANTINO F, MD [Primary Care Provider] - Follow up as needed
[2018-09-28 11:30] LABS: ABSOLUTE EOSINOPHILS # (AUTO) 0.1 10^3/uL (0.0-0.6); ABSOLUTE LYMPHOCYTES (AUTO) 1.9 10^3/uL (0.5-4.7); ABSOLUTE MONOCYTES (AUTO) 0.8 10^3/uL (0.1-1.4); ABSOLUTE NEUT (AUTO) 6.6 10^3/uL (1.7-8.2); BASOPHILS % (AUTO) 0.4 % (0-2); EOSINOPHILS % (AUTO) 1.4 % (0-6); HEMATOCRIT 41.1 % (36.0-47.0); LYMPHOCYTES % (AUTO) 19.8 % (13-45); MEAN CORPUSCULAR HEMOGLOBIN 32.3 pg (27.0-33.4); MEAN CORPUSCULAR VOLUME 95 fl (80-97); MONOCYTES % (AUTO) 8.8 % (3-13); PLATELET COUNT 285 10^3/uL (150-450); RED BLOOD COUNT 4.32 10^6/uL (3.72-5.28); RED CELL DISTRIBUTION WIDTH 13.2 % (11.5-14.0); SEGMENTED NEUTROPHILS % (AUTO) 69.6 % (42-78); TOTAL CELLS COUNTED % (AUTO) 100 %; WHITE BLOOD COUNT 9.5 10^3/uL (4.0-10.5)
[2018-09-28 11:47] LABS: ALANINE AMINOTRANSFERASE 16 U/L (9-52); ALBUMIN 4.6 g/dL (3.5-5.0); ALKALINE PHOSPHATASE 58 U/L (38-126); ANION GAP 11 (5-19); ASPARTATE AMINO TRANSFERASE 23 U/L (14-36); BILIRUBIN,DIRECT 0.3 mg/dL (0.0-0.4); BILIRUBIN,TOTAL 0.7 mg/dL (0.2-1.3); BLOOD UREA NITROGEN 19 mg/dL (7-20); CALCIUM 10.6 mg/dL (8.4-10.2); CARBON DIOXIDE 25 mmol/L (22-30); CHLORIDE 107 mmol/L (98-107); CREATINE KINASE 61 U/L (30-135); GLUCOSE 100 mg/dL (75-110); POTASSIUM 4.7 mmol/L (3.6-5.0); TOTAL PROTEIN 7.8 g/dL (6.3-8.2)
[2018-09-28 11:59] LABS: CREATINE KINASE MB 0.41 ng/mL (<4.55)
[2018-09-28 12:00] LABS: TROPONIN I < 0.012 ng/mL
[2018-09-28 12:38] VITALS: BP 117/53
--- NOTE | 2018-09-28 21:22 | EKG REPORT ---
SEVERITY:- ABNORMAL ECG - A-FLUTTER FIB INCOMPLETE LEFT BUNDLE BRANCH BLOCK BORDERLINE R WAVE PROGRESSION, ANTERIOR LEADS : Confirmed by: Christie Lord 28-Sep-2018 21:21:18
== END 2018-09-28 12:38 | disposition home or self-care (01) ==
LOC: ER 09:56
DX: R00.2 Palpitations (principal); R53.1 Weakness; R53.83 Other fatigue; I48.91 Unspecified atrial fibrillation
CPT/HCPCS: 36415; 71045; 80053; 82550; 82553; 84484; 85025; 93005; 93010; 99285

== ENCOUNTER 2018-12-11 20:11 | Emergency (ER) | payer MEDICARE, MEDICAID ==
[2018-12-11] MEDS ORDERED: DILTIAZEM HCL INJ 25 MG/5 ML VIAL IV ONE (21:08)
[2018-12-11] MEDS ORDERED: NORMAL SALINE 500 ML IV ONE (21:12)
--- NOTE | 2018-12-11 21:20 | ER Document Report ---
ED Cardiac - General Chief Complaint: Arrhythmia Stated Complaint: RAPID HEART RATE Time Seen by Provider: 12/11/18 20:58 Primary Care Provider: SANTINO SIMS MD [Primary Care Provider] - Follow up as needed TRAVEL OUTSIDE OF THE [place] IN LAST 30 DAYS: No - HPI Notes: This is a 78-year-old female with history of A. fib a flutter who presents today with a complaint of palpitations all day today. Patient states that she took an extra dose of digoxin but it did not help. She denies chest pain. She states her heart has been racing. She denies any nausea or vomiting. She denies any dyspnea. She describes her symptoms as moderate. She denies any recent illness. There are no obvious aggravating or relieving factors. - Related Data Allergies/Adverse Reactions: No Known Allergies Allergy (Verified 09/28/18 09:57) Past Medical History - Social History Smoking Status: Never Smoker Chew tobacco use (# tins/day): No Frequency of alcohol use: None Drug Abuse: None Family History: CAD, CVA, Hyperlipidemia, Hypertension, Malignancy Patient has suicidal ideation: No Patient has homicidal ideation: No - Past Medical History Cardiac Medical History: Reports: Hx Atrial Fibrillation, Hx Coronary Artery Disease, Hx Heart Attack, Hx Hypercholesterolemia, Hx Hypertension Pulmonary Medical History: Reports: Hx Pneumonia - H/O A WHILE AGO Denies: Hx Asthma, Hx Bronchitis, Hx COPD Neurological Medical History: Reports: Hx Cerebrovascular Accident. Denies: Hx Seizures Renal/ Medical History: Reports: Hx Ovarian Cysts. Denies: Hx Peritoneal Dialysis GI Medical History: Reports: Hx Gastroesophageal Reflux Disease Musculoskeletal Medical History: Reports Hx Arthritis - BACK, SHOULDERS, HIPS, LEGS, Reports Hx Musculoskeletal Trauma Psychiatric Medical History: Denies: Hx Depression Traumatic Medical History: Reports: Hx Spine Fracture Past Surgical History: Reports: Hx Cardiac Catheterization, Hx Cardiac Surgery - ablasion, Hx Coronary Stent - 5 stents and 4 vessels. Last stent was over 12 years ago., Hx Gynecologic Surgery - Ovarian cyst surgery, Hx Hysterectomy, Hx Orthopedic Surgery - Immunizations Immunizations up to date: No Hx Diphtheria, Pertussis, Tetanus Vaccination: No Hx Pneumococcal Vaccination: 03/10/09 Review of Systems - Review of Systems Cardiovascular: Palpitations. denies: Chest pain Respiratory: denies: Cough Gastrointestinal: denies: Abdominal pain, Diarrhea, Nausea -: Yes All other systems reviewed and negative Physical Exam - Vital signs Vitals: Temp Pulse Resp BP Pulse Ox 98.2 F 116 H 16 160/80 H 97 12/11/18 20:28 12/11/18 20:28 12/11/18 20:28 12/11/18 20:28 12/11/18 20:28 Interpretation: Tachycardic - General General appearance: Appears well, Alert - Respiratory Respiratory status: No respiratory distress Chest status: Nontender Breath sounds: Normal Chest palpation: Normal - Cardiovascular Rhythm: Regular, Tachycardia Heart sounds: Normal auscultation Murmur: No - Abdominal Inspection: Normal Distension: No distension Bowel sounds: Normal Tenderness: Nontender Organomegaly: No organomegaly - Back Back: Normal, Nontender - Neurological Neuro grossly intact: Yes Cognition: Normal Orientation: AAOx4 David Coma Scale Eye Opening: Spontaneous David Coma Scale Verbal: Oriented David Coma Scale Motor: Obeys Commands [place] Coma Scale Total: 15 Speech: Normal Motor strength normal: LUE, RUE, LLE, RLE Sensory: Normal - Psychological Associated symptoms: Normal affect, Normal mood - Skin Skin Temperature: Warm Skin Moisture: Dry Skin Color: Normal Course - Re-evaluation Re-evalutation: 12/11/18 21:20 Differential diagnosis includes a flutter with RVR versus dehydration versus elect light abnormality was a sinus tachycardia. EKG shows a flutter with a 21 block with RVR with a ventricular rate of 124. Left axis deviation. No acute injury pattern. 12/11/18 22:14 Patient reevaluated. Patient is doing well. Rate is controlled. She states that she says any urinary frequency and urgency over the past 3 days and would like a urine check for UTI. 12/11/18 23:36 Patient is doing well. Rate controlled with 1 dose of Cardizem. She has no complaints at this time. Patient's care discussed with her mandate retail service merchandiser Dr. Lewis. He recommends giving one-time dose of 0.125 mg of digoxin p.o. Patient can be discharged to follow-up with him in the office. I have discussed follow-up with patient. 12/12/18 00:15 Patient reevaluated. Patient is doing well. She is stable for discharge. Follow-up instructions discussed. - Vital Signs Vital signs: Temp Pulse Resp BP Pulse Ox 98.2 F 116 H 22 H 138/89 H 94 12/11/18 20:28 12/11/18 20:28 12/11/18 21:55 12/11/18 21:55 12/11/18 21:55 - Laboratory Result Diagrams: 12/11/18 21:08 12/11/18 21:08 Laboratory results interpreted by me: 12/11/18 12/11/18 21:08 21:08 Est GFR ( Amer) 56 L Est GFR (MDRD) Non-Af 46 L Glucose 115 H TSH 9.80 H Digoxin 0.69 L Discharge - Discharge Clinical Impression: Atrial fibrillation and flutter Condition: Stable Disposition: HOME, SELF-CARE Instructions: Atrial Fibrillation ([facility]), Digitalis ([facility]) Referrals: SANTINO SIMS MD [Primary Care Provider] - Follow up as needed ESPINOZA LEWIS MD [ACTIVE STAFF] - Follow up in 3-5 days (Call on Friday to schedule follow-up appointment.)
[2018-12-11 21:28] LABS: ABSOLUTE BASOPHILS # (AUTO) 0.1 10^3/uL (0.0-0.2); ABSOLUTE EOSINOPHILS # (AUTO) 0.1 10^3/uL (0.0-0.6); ABSOLUTE LYMPHOCYTES (AUTO) 2.6 10^3/uL (0.5-4.7); ABSOLUTE NEUT (AUTO) 5.3 10^3/uL (1.7-8.2); BASOPHILS % (AUTO) 0.6 % (0-2); EOSINOPHILS % (AUTO) 1.4 % (0-6); HEMATOCRIT 39.8 % (36.0-47.0); HEMOGLOBIN 13.6 g/dL (12.0-15.5); LYMPHOCYTES % (AUTO) 28.3 % (13-45); MEAN CORPUSCULAR HEMOGLOBIN 31.8 pg (27.0-33.4); MEAN CORPUSCULAR HGB CONC 34.1 g/dL (32.0-36.0); MEAN CORPUSCULAR VOLUME 93 fl (80-97); MONOCYTES % (AUTO) 11.5 % (3-13); PLATELET COUNT 297 10^3/uL (150-450); RED BLOOD COUNT 4.26 10^6/uL (3.72-5.28); RED CELL DISTRIBUTION WIDTH 12.8 % (11.5-14.0); SEGMENTED NEUTROPHILS % (AUTO) 58.2 % (42-78); TOTAL CELLS COUNTED % (AUTO) 100 %; WHITE BLOOD COUNT 9.1 10^3/uL (4.0-10.5)
[2018-12-11 21:54] LABS: ALBUMIN 4.2 g/dL (3.5-5.0); ALKALINE PHOSPHATASE 54 U/L (38-126); ANION GAP 8 (5-19); ASPARTATE AMINO TRANSFERASE 26 U/L (14-36); BILIRUBIN,DIRECT 0.2 mg/dL (0.0-0.4); BILIRUBIN,TOTAL 0.5 mg/dL (0.2-1.3); BLOOD UREA NITROGEN 15 mg/dL (7-20); CALCIUM 10.1 mg/dL (8.4-10.2); CARBON DIOXIDE 27 mmol/L (22-30); CHLORIDE 104 mmol/L (98-107); DIGOXIN 0.69 ng/mL (0.8-2.0); GLUCOSE 115 mg/dL (75-110); TOTAL PROTEIN 7.5 g/dL (6.3-8.2)
[2018-12-11 22:08] LABS: FREE T4 (FREE THYROXINE) 1.11 ng/dL (0.78-2.19)
--- NOTE | 2018-12-11 22:11 | RADIOLOGY REPORT (SQ) ---
XR CHEST 1 VIEW EXAM DATE: 12/11/2018 9:08 PM CDT HISTORY: Palpitations. COMPARISON: 08/29/2018 FINDINGS: The heart size is within normal limits. No consolidation, pleural effusion, or pneumothorax is seen. The bony thorax is intact. IMPRESSION: No evidence of acute cardiopulmonary disease.
[2018-12-11 22:22] LABS: THYROID STIMULATING HORMONE 9.8 uIU/mL (0.47-4.68)
[2018-12-11 23:24] LABS: APPEARANCE,URINE CLEAR; BILIRUBIN,URINE NEGATIVE (NEGATIVE); COLOR,URINE STRAW; GLUCOSE, URINE NEGATIVE (NEGATIVE); KETONES,URINE NEGATIVE (NEGATIVE); LEUKOCYTE ESTERASE,URINE NEGATIVE (NEGATIVE); NITRITE,URINE NEGATIVE (NEGATIVE); PROTEIN,URINE NEGATIVE (NEGATIVE); URINE SPECIFIC GRAVITY 1.005; UROBILINOGEN,URINE NEGATIVE mg/dL (<2.0)
[2018-12-11] MEDS ORDERED: DIGOXIN 0.125 MG TABLET PO ONE (23:35)
[2018-12-12 01:59] VITALS: BP 142/80
--- NOTE | 2018-12-12 19:23 | EKG REPORT ---
SEVERITY:- ABNORMAL ECG - ATRIAL FLUTTER WITH 2:1 AV BLOCK BORDERLINE LEFT AXIS DEVIATION CONSIDER ANTEROSEPTAL INFARCT REPOL ABNRM SUGGESTS ISCHEMIA, ANT-LAT LEADS : Confirmed by: Maria Antonia Lewis MD 12-Dec-2018 19:23:02
== END 2018-12-12 01:58 | disposition home or self-care (01) ==
LOC: ER 20:11
DX: I48.91 Unspecified atrial fibrillation (principal); I48.92 Unspecified atrial flutter; R00.2 Palpitations; Z79.899 Other long term (current) drug therapy; I25.10 Atherosclerotic heart disease of native coronary artery without angina pectoris; I25.2 Old myocardial infarction; I10 Essential (primary) hypertension
CPT/HCPCS: 93005; 99285; 96361; 96374; 36415; 84439; 80162; 83735; 84443; 85025; 80053; 81001; 84484; 71045; 93010; A9270; J3490; J7040

== ENCOUNTER 2018-12-17 22:02 | Emergency (ER) | payer MEDICAID, MEDICARE ==
[2018-12-17] MEDS ORDERED: ASPIRIN 81 MG TABLET, CHEWABLE PO ONE (22:32)
--- NOTE | 2018-12-17 22:34 | ER Document Report ---
ED Medical Screen (RME) - General Chief Complaint: Palpitations Stated Complaint: HEART RATE UP AND DOWN Time Seen by Provider: 12/17/18 22:29 Primary Care Provider: SANTINO SIMS MD [Primary Care Provider] - Follow up as needed Mode of Arrival: Ambulatory Information source: Patient Notes: This is a 78-year-old female presents emergency department with irregular heartbeat. Reports her heart rate drops down to the 30s and goes up to 114. Reports she is on digoxin and multiple other medications. She reports she contacted Dr. Ellis and he told to come to the emergency department. She reports some nausea. Denies fever vomiting diarrhea. Patient has history of A. fib. I have greeted and performed a rapid initial assessment of this patient. A comprehensive ED assessment and evaluation of the patient, analysis of test results and completion of the medical decision making process will be conducted by additional ED providers. Dictation of this chart was performed using voice recognition software; therefore, there may be some unintended grammatical errors. TRAVEL OUTSIDE OF THE [place] IN LAST 30 DAYS: No - Related Data Allergies/Adverse Reactions: No Known Allergies Allergy (Verified 09/28/18 09:57) Past Medical History - Social History Chew tobacco use (# tins/day): No Frequency of alcohol use: None - Past Medical History Cardiac Medical History: Reports: Hx Atrial Fibrillation, Hx Coronary Artery Disease, Hx Heart Attack, Hx Hypercholesterolemia, Hx Hypertension Pulmonary Medical History: Reports: Hx Pneumonia - H/O A WHILE AGO Denies: Hx Asthma, Hx Bronchitis, Hx COPD Neurological Medical History: Reports: Hx Cerebrovascular Accident. Denies: Hx Seizures Renal/ Medical History: Reports: Hx Ovarian Cysts. Denies: Hx Peritoneal Dialysis GI Medical History: Reports: Hx Gastroesophageal Reflux Disease Musculoskeltal Medical History: Reports Hx Arthritis - BACK, SHOULDERS, HIPS, LEGS, Reports Hx Musculoskeletal Trauma Psychiatric Medical History: Denies: Hx Depression Traumatic Medical History: Reports: Hx Spine Fracture Past Surgical History: Reports: Hx Cardiac Catheterization, Hx Cardiac Surgery - ablasion, Hx Coronary Stent - 5 stents and 4 vessels. Last stent was over 12 years ago., Hx Gynecologic Surgery - Ovarian cyst surgery, Hx Hysterectomy, Hx Orthopedic Surgery - Immunizations Immunizations up to date: No Hx Diphtheria, Pertussis, Tetanus Vaccination: No Physical Exam - Vital signs Vitals: Temp Pulse Resp BP Pulse Ox 98.2 F 102 H 18 149/84 H 96 12/17/18 22:21 12/17/18 22:21 12/17/18 22:21 12/17/18 22:21 12/17/18 22:21 Course - Vital Signs Vital signs: Temp Pulse Resp BP Pulse Ox 98.2 F 102 H 18 149/84 H 96 12/17/18 22:21 12/17/18 22:21 12/17/18 22:21 12/17/18 22:21 12/17/18 22:21 Doctor's Discharge - Discharge Referrals: SANTINO SIMS MD [Primary Care Provider] - Follow up as needed
--- NOTE | 2018-12-17 23:20 | RADIOLOGY REPORT (SQ) ---
EXAM DESCRIPTION: XR CHEST 2 VIEWS COMPLETED DATE/TME: 12/17/2018 22:32 CLINICAL HISTORY: 78 years Female, irregular hr COMPARISON:Dec 11 2018 NUMBER OF VIEWS/TECHNIQUE: 2, Frontal, Lateral FINDINGS: Increased emphysematous lung volume, clear parenchyma, normal cardiac silhouette, and intact bony thorax. IMPRESSION: No acute cardiopulmonary findings.
[2018-12-17 23:37] LABS: ABSOLUTE BASOPHILS # (AUTO) 0.1 10^3/uL (0.0-0.2); ABSOLUTE EOSINOPHILS # (AUTO) 0.1 10^3/uL (0.0-0.6); ABSOLUTE LYMPHOCYTES (AUTO) 2.1 10^3/uL (0.5-4.7); ABSOLUTE MONOCYTES (AUTO) 0.9 10^3/uL (0.1-1.4); ABSOLUTE NEUT (AUTO) 4.9 10^3/uL (1.7-8.2); BASOPHILS % (AUTO) 0.9 % (0-2); EOSINOPHILS % (AUTO) 1.4 % (0-6); HEMATOCRIT 39.3 % (36.0-47.0); HEMOGLOBIN 13.2 g/dL (12.0-15.5); LYMPHOCYTES % (AUTO) 26.1 % (13-45); MEAN CORPUSCULAR HEMOGLOBIN 30.9 pg (27.0-33.4); MEAN CORPUSCULAR HGB CONC 33.4 g/dL (32.0-36.0); MEAN CORPUSCULAR VOLUME 92 fl (80-97); MONOCYTES % (AUTO) 10.9 % (3-13); PLATELET COUNT 292 10^3/uL (150-450); RED BLOOD COUNT 4.26 10^6/uL (3.72-5.28); RED CELL DISTRIBUTION WIDTH 12.8 % (11.5-14.0); SEGMENTED NEUTROPHILS % (AUTO) 60.7 % (42-78); TOTAL CELLS COUNTED % (AUTO) 100 %
[2018-12-17 23:59] LABS: ALBUMIN 4.6 g/dL (3.5-5.0); ALKALINE PHOSPHATASE 51 U/L (38-126); ANION GAP 11 (5-19); ASPARTATE AMINO TRANSFERASE 27 U/L (14-36); BILIRUBIN,DIRECT 0.2 mg/dL (0.0-0.4); BILIRUBIN,TOTAL 0.4 mg/dL (0.2-1.3); BLOOD UREA NITROGEN 13 mg/dL (7-20); CALCIUM 10.1 mg/dL (8.4-10.2); CARBON DIOXIDE 26 mmol/L (22-30); CHLORIDE 103 mmol/L (98-107); CREATINE KINASE 83 U/L (30-135); GLUCOSE 104 mg/dL (75-110); POTASSIUM 4.2 mmol/L (3.6-5.0); TOTAL PROTEIN 7.9 g/dL (6.3-8.2)
[2018-12-18 00:11] LABS: CREATINE KINASE MB 0.85 ng/mL (<4.55)
[2018-12-18 00:14] LABS: TROPONIN I < 0.012 ng/mL
--- NOTE | 2018-12-18 01:26 | ER Document Report ---
ED General - General Chief Complaint: Palpitations Stated Complaint: HEART RATE UP AND DOWN Time Seen by Provider: 12/17/18 22:29 Primary Care Provider: SANTINO SIMS MD [Primary Care Provider] - Follow up as needed Mode of Arrival: Ambulatory TRAVEL OUTSIDE OF THE [place] IN LAST 30 DAYS: No - HPI Notes: 70-year-old female with a known history of atrial fibrillation presents complaining of high and low heart rate. Patient indicates that since Friday she is just felt overall weak. She was seen in the emergency department, apparently had A. fib with RVR. Started on digoxin which she has been taking. She states since then she has not felt herself. Denies any active chest pain, no fever chills or sweats. No vomiting, no fever. However, she states that at home if she exerts herself at all she just feels "bad". And her heart rate goes up. States her heart rate is very between up to 130 at home and is low as 29. She is taking this with either a blood pressure cuff that calculates her heart rate or a pulse oximeter on her finger. No other modifying factors, no other associated symptoms, no other provocative or palliative factors. - Related Data Allergies/Adverse Reactions: No Known Allergies Allergy (Verified 09/28/18 09:57) Past Medical History - General Information source: Patient - Social History Smoking Status: Never Smoker Chew tobacco use (# tins/day): No Frequency of alcohol use: None Lives with: Spouse/Significant other Family History: CAD, CVA, Hyperlipidemia, Hypertension, Malignancy Patient has suicidal ideation: No Patient has homicidal ideation: No - Past Medical History Cardiac Medical History: Reports: Hx Atrial Fibrillation, Hx Coronary Artery Disease, Hx Heart Attack, Hx Hypercholesterolemia, Hx Hypertension Pulmonary Medical History: Reports: Hx Pneumonia - H/O A WHILE AGO Denies: Hx Asthma, Hx Bronchitis, Hx COPD Neurological Medical History: Reports: Hx Cerebrovascular Accident. Denies: Hx Seizures Renal/ Medical History: Reports: Hx Ovarian Cysts. Denies: Hx Peritoneal Shantel lysis GI Medical History: Reports: Hx Gastroesophageal Reflux Disease Musculoskeletal Medical History: Reports Hx Arthritis - BACK, SHOULDERS, HIPS, L EGS, Reports Hx Musculoskeletal Trauma Psychiatric Medical History: Denies: Hx Depression Traumatic Medical History: Reports: Hx Spine Fracture Past Surgical History: Reports: Hx Cardiac Catheterization, Hx Cardiac Surgery - ablasion, Hx Coronary Stent - 5 stents and 4 vessels. Last stent was over 12 years ago., Hx Gynecologic Surgery - Ovarian cyst surgery, Hx Hysterectomy, Hx Orthopedic Surgery - Immunizations Immunizations up to date: No Hx Diphtheria, Pertussis, Tetanus Vaccination: No Hx Pneumococcal Vaccination: 03/10/09 Review of Systems - Review of Systems Notes: Review of systems as in the history of present illness, otherwise negative x 10 systems. Physical Exam - Vital signs Vitals: Temp Pulse Resp BP Pulse Ox 98.2 F 102 H 18 149/84 H 96 12/17/18 22:21 12/17/18 22:21 12/17/18 22:21 12/17/18 22:21 12/17/18 22:21 - Notes Notes: General: Well developed . HEENT: Normocephalic, atraumatic. Pupils equal round reactive to light. No JVD. Chest: No trauma. Respiratory: Good air exchange, normal excursion. Cardiac: Regular rhythm. No murmurs or gallops. Abdomen: Soft, benign. Nondistended. Nontender. Back: No asymmetry or gross abnormality. Motor: Grossly normal power and tone. Neurologic: Alert, nonfocal. Cranial nerves II-12 are intact. Sensation intact. Vascular: Well perfused. Normal peripheral pulses. Skin: No petechiae or purpura. Course - Re-evaluation Re-evalutation: 12/18/18 01:25 Patient was evaluated by the [facility] provider prior to my evaluation. Studies / interventions have been ordered by this provider and may still be pending. Female with the after mentioned symptoms. Initial differential included underlying cardiac, metabolic, less likely infectious etiologies. Available labs at this time show unremarkable CBC and chemistries. I have added on a digoxin level. Chest x-ray is unremarkable. Twelve-lead appears to show a sinus rhythm without any acute ischemic changes. Plan proceed with telemetry monitoring, digoxin level, reevaluate. 12/18/18 04:06 Digoxin level therapeutic at 0.91. Patient is watched throughout an extended ED course on telemetry, she has had a combination of sinus rhythm interspersed with periods of atrial fibrillation, her rate has constantly been controlled, she not had any episodes of tachycardia dysrhythmia or bradycardia dysrhythmia. Patient is offered admission for observation but is declined. She discharged home, will follow-up with her brick burner today, return if worsening. Continue her medications as prescribed. - Vital Signs Vital signs: Temp Pulse Resp BP Pulse Ox 98.2 F 102 H 17 138/71 H 98 12/17/18 22:21 12/17/18 22:21 12/18/18 02:01 12/18/18 02:01 12/18/18 02:01 - Laboratory Result Diagrams: 12/17/18 23:11 12/17/18 23:11 Laboratory results interpreted by me: 12/17/18 23:11 Est GFR ( Amer) 54 L Est GFR (MDRD) Non-Af 44 L - EKG Interpretation by Ia EKG shows normal: Sinus rhythm, [place], Intervals Discharge - Discharge Clinical Impression: Atrial fibrillation Qualifiers: Atrial fibrillation type: unspecified chronic Qualified Code(s): I48.20 - Chronic atrial fibrillation, unspecified; I48.2 - Chronic atrial fibrillation Condition: Stable Disposition: HOME, SELF-CARE Instructions: Atrial Fibrillation ([facility]) Additional Instructions: Contact your heart doctor today. Referrals: SANTINO SIMS MD [Primary Care Provider] - Follow up as needed
[2018-12-18 02:24] VITALS: BP 138/71
--- NOTE | 2018-12-18 06:43 | EKG REPORT ---
SEVERITY:- ABNORMAL ECG - SINUS RHYTHM INCOMPLETE LEFT BUNDLE BRANCH BLOCK ANTERIOR Q WAVES, POSSIBLY DUE TO ILBBB : Confirmed by: Gian Staples MD 18-Dec-2018 06:42:42
== END 2018-12-18 05:57 | disposition home or self-care (01) ==
LOC: ER 22:02
DX: I48.20 Chronic atrial fibrillation, unspecified (principal); R53.1 Weakness; I25.10 Atherosclerotic heart disease of native coronary artery without angina pectoris; I10 Essential (primary) hypertension; I25.2 Old myocardial infarction; Z95.5 Presence of coronary angioplasty implant and graft
CPT/HCPCS: 93005; 99285; 36415; 82553; 82550; 80162; 85025; 80053; 84484; 71046; 93010; A9270

== ENCOUNTER 2019-04-13 12:42 | Emergency (ER) | payer MEDICARE, OTHER ==
--- NOTE | 2019-04-13 13:42 | ER Document Report ---
ED Medical Screen (RME) - General Chief Complaint: Irregular Pulse Stated Complaint: POSSIBLE AFIB Time Seen by Provider: 04/13/19 13:35 Primary Care Provider: SANTINO SIMS MD [Primary Care Provider] - Follow up as needed Notes: HPI: 78-year-old female with history of atrial fibrillation who has had ablation in 2018 presenting for evaluation of bradycardic episodes over the last 3 days. Patient states she also has history of mini strokes is on Eliquis. Patient states over the last 3 days she has felt her heart rate go very high but then also go as low as the 30s. She states when this happens she does have shortness of breath and some chest discomfort. She does feel like she will pass out when this happens. No history of bradycardic episodes previously. Patient does take digoxin and propranolol I have greeted and performed a rapid initial assessment of this patient. A comprehensive ED assessment and evaluation of the patient, analysis of test results and completion of the medical decision making process will be conducted by additional ED providers PHYSICAL EXAMINATION: GENERAL: Well-appearing, well-nourished and in no acute distress. HEAD: Atraumatic, normocephalic. EYES: sclera anicteric, conjunctiva are normal. ENT: Moist mucous membranes. NECK: Normal range of motion, no JVD LUNGS: Normal work of breathing, clear to auscultation HEART: 2+ radial pulses bilaterally, irregularly irregular, no murmur ABD: limited by positioning for exam in triage. EXTREMITIES: no pitting or edema. No cyanosis. NEUROLOGICAL: No focal neurological deficits. Moves all extremities spontaneousl y and on command. PSYCH: Normal mood, normal affect. SKIN: Warm, Dry, normal turgor, no rashes or lesions noted. TRAVEL OUTSIDE OF THE [place] IN LAST 30 DAYS: No - Related Data Allergies/Adverse Reactions: No Known Allergies Allergy (Verified 09/28/18 09:57) Past Medical History - Social History Frequency of alcohol use: None Drug Abuse: None - Past Medical History Cardiac Medical History: Reports: Hx Atrial Fibrillation, Hx Coronary Artery Disease, Hx Heart Attack, Hx Hypercholesterolemia, Hx Hypertension Pulmonary Medical History: Reports: Hx Pneumonia - H/O A WHILE AGO Denies: Hx Asthma, Hx Bronchitis, Hx COPD Neurological Medical History: Reports: Hx Cerebrovascular Accident. Denies: Hx Seizures Renal/ Medical History: Reports: Hx Ovarian Cysts. Denies: Hx Peritoneal Dialysis GI Medical History: Reports: Hx Gastroesophageal Reflux Disease Musculoskeltal Medical History: Reports Hx Arthritis - BACK, SHOULDERS, HIPS, LEGS, Reports Hx Musculoskeletal Trauma Psychiatric Medical History: Denies: Hx Depression Traumatic Medical History: Reports: Hx Spine Fracture Past Surgical History: Reports: Hx Cardiac Catheterization, Hx Cardiac Surgery - ablasion, Hx Coronary Stent - 5 stents and 4 vessels. Last stent was over 12 years ago., Hx Gynecologic Surgery - Ovarian cyst surgery, Hx Hysterectomy, Hx Orthopedic Surgery - Immunizations Immunizations up to date: No Hx Diphtheria, Pertussis, Tetanus Vaccination: No Physical Exam - Vital signs Vitals: Temp Pulse Resp BP Pulse Ox 98.0 F 73 20 145/62 H 96 04/13/19 12:54 04/13/19 12:54 04/13/19 12:54 04/13/19 12:54 04/13/19 12:54 Course - Vital Signs Vital signs: Temp Pulse Resp BP Pulse Ox 98.0 F 73 20 145/62 H 96 04/13/19 12:54 04/13/19 12:54 04/13/19 12:54 04/13/19 12:54 04/13/19 12:54 Doctor's Discharge - Discharge Referrals: SANTINO SIMS MD [Primary Care Provider] - Follow up as needed
--- NOTE | 2019-04-13 14:36 | RADIOLOGY REPORT (SQ) ---
EXAM DESCRIPTION: CHEST 2 VIEWS COMPLETED DATE/TIME: 04/13/2019 1:11 pm REASON FOR STUDY: sob COMPARISON: Chest radiograph, 12/17/2018 EXAM PARAMETERS: NUMBER OF VIEWS: two views TECHNIQUE: Digital Frontal and Lateral radiographic views of the chest acquired. RADIATION DOSE: NA LIMITATIONS: none FINDINGS: LUNGS AND PLEURA: The lungs are hyperinflated. Biapical pleural-parenchymal scarring is s table. No focal consolidation or pleural effusion. No pneumothorax. MEDIASTINUM AND HILAR STRUCTURES: No masses or contour abnormalities. HEART AND VASCULAR STRUCTURES: Heart normal size. No evidence for failure. BONES: No acute findings. HARDWARE: None in the chest. OTHER: No other significant finding. IMPRESSION: 1. No acute cardiopulmonary disease. 2. Hyperinflated lungs which can be seen with obstructive lung disease. TECHNICAL DOCUMENTATION: JOB ID: [id number] [employer]- All Rights Reserved Reading location - IP/workstation name: [email or web address]
[2019-04-13 15:49] LABS: ABSOLUTE EOSINOPHILS # (AUTO) 0.1 10^3/uL (0.0-0.6); ABSOLUTE LYMPHOCYTES (AUTO) 1.7 10^3/uL (0.5-4.7); ABSOLUTE NEUT (AUTO) 8.9 10^3/uL (1.7-8.2); BASOPHILS % (AUTO) 0.3 % (0-2); EOSINOPHILS % (AUTO) 0.5 % (0-6); HEMATOCRIT 38.4 % (36.0-47.0); HEMOGLOBIN 12.6 g/dL (12.0-15.5); LYMPHOCYTES % (AUTO) 14.8 % (13-45); MEAN CORPUSCULAR HEMOGLOBIN 30.7 pg (27.0-33.4); MEAN CORPUSCULAR VOLUME 93 fl (80-97); MONOCYTES % (AUTO) 8.2 % (3-13); PLATELET COUNT 291 10^3/uL (150-450); RED BLOOD COUNT 4.12 10^6/uL (3.72-5.28); RED CELL DISTRIBUTION WIDTH 15.4 % (11.5-14.0); SEGMENTED NEUTROPHILS % (AUTO) 76.2 % (42-78); TOTAL CELLS COUNTED % (AUTO) 100 %; WHITE BLOOD COUNT 11.7 10^3/uL (4.0-10.5)
[2019-04-13 16:03] LABS: APPEARANCE,URINE CLEAR; BILIRUBIN,URINE NEGATIVE (NEGATIVE); COLOR,URINE COLORLESS; GLUCOSE, URINE NEGATIVE (NEGATIVE); KETONES,URINE NEGATIVE (NEGATIVE); LEUKOCYTE ESTERASE,URINE NEGATIVE (NEGATIVE); NITRITE,URINE NEGATIVE (NEGATIVE); PROTEIN,URINE NEGATIVE (NEGATIVE); URINE SPECIFIC GRAVITY 1.002; UROBILINOGEN,URINE NEGATIVE mg/dL (<2.0)
[2019-04-13 16:09] LABS: ALBUMIN 4.2 g/dL (3.5-5.0); ALKALINE PHOSPHATASE 56 U/L (38-126); ANION GAP 10 (5-19); ASPARTATE AMINO TRANSFERASE 22 U/L (14-36); BILIRUBIN,DIRECT 0.3 mg/dL (0.0-0.4); BILIRUBIN,TOTAL 0.8 mg/dL (0.2-1.3); BLOOD UREA NITROGEN 12 mg/dL (7-20); CALCIUM 10.1 mg/dL (8.4-10.2); CARBON DIOXIDE 31 mmol/L (22-30); CHLORIDE 101 mmol/L (98-107); DIGOXIN 1.47 ng/mL (0.8-2.0); GLUCOSE 102 mg/dL (75-110); POTASSIUM 3.9 mmol/L (3.6-5.0); TOTAL PROTEIN 7.3 g/dL (6.3-8.2)
--- NOTE | 2019-04-13 16:23 | EKG REPORT ---
SEVERITY:- ABNORMAL ECG - ATRIAL FIBRILLATION INCOMPLETE LEFT BUNDLE BRANCH BLOCK BORDERLINE R WAVE PROGRESSION, ANTERIOR LEADS : Confirmed by: Maria Antonia Lewis MD 13-Apr-2019 16:22:27
--- NOTE | 2019-04-13 17:18 | ER Document Report ---
ED Cardiac - General Chief Complaint: Irregular Pulse Stated Complaint: POSSIBLE AFIB Time Seen by Provider: 04/13/19 13:35 Primary Care Provider: SANTINO SIMS MD [Primary Care Provider] - Follow up as needed Notes: Patient is a 78-year-old white female with a past medical history significant for A. fib who presents to the emergency department with a chief complaint of the same. She states over the past several days she has felt her heart going in and out of atrial fibrillation. She states that she has a pulse oximeter at home and has recorded heart rates in the range from [address] up to like 117. She states that she has had an ablation in the past which corrected it for some time and has had synchronized cardioversion here x2 that was successful but states that her heart continues to rebound to A. fib. She states when the heart rate was getting down to the 20s and 30s she was feeling weak and tired. She states here in the emergency department that she feels well without any problems. States that she was fine and was going to call her staking engineer but her insisted she come for evaluation. She denies any chest pain, headache, weakness, shortness of breath or any other pain, complaints or concerns at this time. TRAVEL OUTSIDE OF THE [place] IN LAST 30 DAYS: No - Related Data Allergies/Adverse Reactions: No Known Allergies Allergy (Verified 09/28/18 09:57) Past Medical History - Social History Smoking Status: Never Smoker Frequency of alcohol use: None Drug Abuse: None Family History: CAD, CVA, Hyperlipidemia, Hypertension, Malignancy Patient has suicidal ideation: No Patient has homicidal ideation: No - Past Medical History Cardiac Medical History: Reports: Hx Atrial Fibrillation, Hx Coronary Artery Disease, Hx Heart Attack, Hx Hypercholesterolemia, Hx Hypertension Pulmonary Medical History: Reports: Hx Pneumonia - H/O A WHILE AGO Denies: Hx Asthma, Hx Bronchitis, Hx COPD Neurological Medical History: Reports: Hx Cerebrovascular Accident. Denies: Hx Seizures Renal/ Medical History: Reports: Hx Ovarian Cysts. Denies: Hx Peritoneal Dialysis GI Medical History: Reports: Hx Gastroesophageal Reflux Disease Musculoskeletal Medical History: Reports Hx Arthritis - BACK, SHOULDERS, HIPS, LEGS, Reports Hx Musculoskeletal Trauma Psychiatric Medical History: Denies: Hx Depression Traumatic Medical History: Reports: Hx Spine Fracture Past Surgical History: Reports: Hx Cardiac Catheterization, Hx Cardiac Surgery - ablasion, Hx Coronary Stent - 5 stents and 4 vessels. Last stent was over 12 years ago., Hx Gynecologic Surgery - Ovarian cyst surgery, Hx Hysterectomy, Hx Orthopedic Surgery - Immunizations Immunizations up to date: No Hx Diphtheria, Pertussis, Tetanus Vaccination: No Hx Pneumococcal Vaccination: 03/10/09 Review of Systems - Review of Systems Cardiovascular: Palpitations, Heart racing -: Yes All other systems reviewed and negative Physical Exam - Vital signs Vitals: Temp Pulse Resp BP Pulse Ox 98.0 F 73 20 145/62 H 96 04/13/19 12:54 04/13/19 12:54 04/13/19 12:54 04/13/19 12:54 04/13/19 12:54 - General General appearance: Appears well, Alert - Respiratory Respiratory status: No respiratory distress Chest status: Nontender Breath sounds: Normal Chest palpation: Normal - Cardiovascular Rhythm: Irregularly irregular Murmur: No - Extremities General upper extremity: Normal inspection, Nontender, Normal color, Normal ROM, Normal temperature General lower extremity: Normal inspection, Nontender, Normal color, Normal ROM, Normal temperature, Normal weight bearing. No: Félix's sign - Neurological Neuro grossly intact: Yes Cognition: Normal Orientation: AAOx4 [place] Coma Scale Eye Opening: Spontaneous David Coma Scale Verbal: Oriented [place] Coma Scale Motor: Obeys Commands David Coma Scale Total: 15 Speech: Normal Motor strength normal: LUE, RUE, LLE, RLE Sensory: Normal - Psychological Associated symptoms: Normal affect, Normal mood - Skin Skin Temperature: Warm Skin Moisture: Dry Skin Color: Normal Course - Re-evaluation Re-evalutation: 04/13/19 17:15 Called and spoke with Dr. Lewis, the patient's staking engineer. Discussed with him the patient's recent history, findings of A. fib on EKG that is rate controlled at 62 bpm. Case advised patient is stable for discharge and outpatient management. He advised that we increase her diltiazem from 120 mg daily to twice daily. Patient is agreeable to this plan. She will call him tomorrow morning for outpatient follow-up this week for continued care management. Counseled her and her family at length regarding the importance of outpatient follow-up and advised to return here or any ER immediately with any new, persistent or worsening symptoms. They verbalized understood and agreed. - Vital Signs Vital signs: Temp Pulse Resp BP Pulse Ox 98.0 F 73 20 145/62 H 96 04/13/19 12:54 04/13/19 12:54 04/13/19 12:54 04/13/19 12:54 04/13/19 12:54 - Laboratory Result Diagrams: 04/13/19 14:50 04/13/19 14:50 Laboratory results interpreted by me: 04/13/19 04/13/19 14:50 14:50 WBC 11.7 H RDW 15.4 H Absolute Neuts (auto) 8.9 H Carbon Dioxide 31 H Est GFR (MDRD) Non-Af 59 L Discharge - Discharge Clinical Impression: Chronic a-fib Condition: Stable Disposition: HOME, SELF-CARE Instructions: Atrial Fibrillation ([facility]) Additional Instructions: Call your staking engineer, Dr. Lewis tomorrow for outpatient follow-up this week. Return here or any ER immediately with any new, persistent or worsening symptoms. Prescriptions: Diltiazem HCl [Cardizem Cd 120 mg Capsule] 120 mg PO BID #[id number] cap.sr.[id number] Referrals: SANTINO SIMS MD [Primary Care Provider] - Follow up as needed
[2019-04-13 18:00] VITALS: BP 127/77
== END 2019-04-13 17:40 | disposition home or self-care (01) ==
LOC: ER 12:42
DX: I48.20 Chronic atrial fibrillation, unspecified (principal); I25.10 Atherosclerotic heart disease of native coronary artery without angina pectoris; I10 Essential (primary) hypertension; Z95.5 Presence of coronary angioplasty implant and graft; Z79.899 Other long term (current) drug therapy
CPT/HCPCS: 36415; 71046; 80053; 80162; 81001; 83735; 84443; 84484; 85025; 93005; 93010; 99285